=== PATIENT | male | born 1960 | race African-American/Black ===

== ENCOUNTER 2020-02-23 17:05 | Inpatient (IN) | payer MEDICARE, MEDICAID ==
[~2020-02-23] VITALS: Ht 180.3 cm; Wt 110.7 kg
[~2020-02-23 17:05] MED LIST: AMLODIPINE BESY10 MG ORAL; ATRIPLA TABLET1 EAC1 ORAL; BENAZEPRIL HCL40 MG ORAL; KEFLEX500 MG ORAL; METOPROLOL TAR100 M1 ORAL; PROMETH-CODEIN 65 ML PO; TRAZODONE HCL150 MG ORAL; TRIAMTERENE-HC1 EAC6 ORAL; WELLBUTRIN XL150 MG ORAL
[2020-02-23 17:20] VITALS: BP 129/79
--- NOTE | 2020-02-23 17:20 | NUR ---
ED Nurse Note: Patient walked into ER due to SOB x 5 days and swelling in BLE, more on the right leg. Increased SOB with walking. Pt also c/o chest tightness. AAO x4, verbally responsive. Afebrile. Covid isolation precaution observed. ERMD at bedside. Addendum: 02/23/20 at 1803 by JOSSIE ED Nurse Note: Pt reports unable to bear weight on right leg.
--- NOTE | 2020-02-23 17:25 | NUR ---
ED Nurse Note: IV line established. Blood specimen collected and sent to lab.
--- NOTE | 2020-02-23 17:53 | Emergency Room Report ---
History of Present Illness General Chief Complaint: Chest Pain Source: Patient, Medical Record Present Illness HPI 59-year-old male history of asthma history of hypertension, HIV presents with cough, shortness of breath x4 days, dyspnea on exertion, some chest tightness aggravated with exertion relieved with rest severity is moderate, intermittent patient denies any nausea vomiting, abdominal pain patient presents for evaluation Allergies: Coded Allergies: No Known Allergies (Unverified , 10/10/16) COVID-19 Screening Contact w/high risk pt: No Recent Travel to affected area: No Experienced COVID-19 symptoms?: Yes COVID-19 symptoms experienced: Shortness of Breath Patient History Past Medical History: see triage record Reviewed Nursing Documentation: PMH: Agreed; PSxH: Agreed Nursing Documentation-PMH Past Medical History: No History, Except For Hx Cardiac Problems: No - HIV Hx Hypertension: Yes Hx Gastrointestinal Problems: Yes - diverticulitis, diverticulosis Review of Systems All Other Systems: negative except mentioned in HPI Physical Exam Vital Signs Date Time Temp Pulse Resp B/P (MAP) Pulse Ox O2 Delivery O2 Flow Rate FiO2 02/23/20 17:17 73 16 129/79 (96) 95 Room Air Sp02 EP Interpretation: reviewed, normal General Appearance: well appearing, no apparent distress, alert Head: normocephalic, atraumatic Eyes: bilateral eye PERRL, bilateral eye EOMI ENT: uvula midline, moist mucus membranes Neck: supple, thyroid normal, supple/symm/no masses Respiratory: lungs clear, no respiratory distress, no retraction, no accessory muscle use Cardiovascular #1: normal peripheral pulses, regular rate, rhythm, no edema, no gallop, no murmur Gastrointestinal: non tender, soft, no guarding, no rebound Musculoskeletal: normal inspection Neurologic: alert, oriented x3 Psychiatric: mood/affect normal Skin: no rash, warm/dry Medical Decision Making Diagnostic Impression: Primary Impression: Chest pain Qualified Codes: R07.9 - Chest pain, unspecified Additional Impressions: LEE (acute kidney injury) Hypokalemia Ankle sprain Qualified Codes: S93.491A - Sprain of other ligament of right ankle, initial encounter ER Course 59-year-old male presents with shortness of breath, differential diagnosis includes electrolyte abnormality, COVID, ACS Patient with incidental LEE, hyperkalemia We will start patient on potassium, patient will be admitted for management of his LEE Patient to be admitted to Dr. Zeyad Holt Laboratory Tests Test 02/23/20 17:35 White Blood Count 11.3 K/UL (4.8-10.8) H Red Blood Count 5.37 M/UL (4.70-6.10) Hemoglobin 14.2 G/DL (14.2-18.0) Hematocrit 44.7 % (42.0-52.0) Mean Corpuscular Volume 83 FL (80-99) Mean Corpuscular Hemoglobin 26.4 PG (27.0-31.0) L Mean Corpuscular Hemoglobin Concent 31.7 G/DL (32.0-36.0) L Red Cell Distribution Width 14.3 % (11.6-14.8) Platelet Count 197 K/UL (150-450) Mean Platelet Volume 7.2 FL (6.5-10.1) Neutrophils (%) (Auto) 69.3 % (45.0-75.0) Lymphocytes (%) (Auto) 17.3 % (20.0-45.0) L Monocytes (%) (Auto) 8.6 % (1.0-10.0) Eosinophils (%) (Auto) 3.5 % (0.0-3.0) H Basophils (%) (Auto) 1.3 % (0.0-2.0) Sodium Level 143 MMOL/L (136-145) Potassium Level 2.6 MMOL/L (3.5-5.1) *L Chloride Level 100 MMOL/L (98-107) Carbon Dioxide Level 32 MMOL/L (21-32) Anion Gap 11 mmol/L (5-15) Blood Urea Nitrogen 20 mg/dL (7-18) H Creatinine 2.3 MG/DL (0.55-1.30) H Estimated Glomerular Filtration Rate 35.3 mL/min (>60) Glucose Level 122 MG/DL (74-106) H Calcium Level 9.0 MG/DL (8.5-10.1) Total Bilirubin 0.5 MG/DL (0.2-1.0) Aspartate Amino Transferase (AST) 16 U/L (15-37) Alanine Aminotransferase (ALT) 16 U/L (12-78) Alkaline Phosphatase 102 U/L (46-116) Troponin I 0.030 ng/mL (0.000-0.056) Pro-B-Type Natriuretic Peptide 475 pg/mL (0-125) H Total Protein 7.8 G/DL (6.4-8.2) Albumin 3.6 G/DL (3.4-5.0) Globulin 4.2 g/dL Albumin/Globulin Ratio 0.9 (1.0-2.7) L EKG Diagnostic Results EKG Time: 17:27 EP Interpretation: NSR, right bundle branch block, rate 73, QTc 475, no acute ST elevations, Chest X-Ray Diagnostic Results Chest X-Ray Diagnostic Results : Chest X-Ray Ordered: Yes # of Views/Limited/Complete: 1 View Indication: Shortness of Breath EP Interpretation: Yes Interpretation: no consolidation, no effusion, no pneumothorax, no acute cardiopulmonary disease Impression: No acute disease Electronically Signed by: Christian Roque MD Last Vital Signs Date Time Temp Pulse Resp B/P (MAP) Pulse Ox O2 Delivery O2 Flow Rate FiO2 02/23/20 17:17 73 16 129/79 (96) 95 Room Air Disposition: ADMITTED INPATIENT Condition: Stable Referrals: NOT CHOSEN IPA/,REFERRING (PCP) Christian Roque MD February 23, 2020 17:53
--- NOTE | 2020-02-23 18:01 | NUR ---
ED Nurse Note: Xray at bedside.
[2020-02-23 18:11] LABS: BASOPHILS % (AUTO) 1.3 % (0.0-2.0); EOSINOPHILS % (AUTO) 3.5 % (0.0-3.0); HEMATOCRIT 44.7 % (42.0-52.0); HEMOGLOBIN 14.2 G/DL (14.2-18.0); LYMPHOCYTES % (AUTO) 17.3 % (20.0-45.0); MEAN CORPUSCULAR VOLUME 83 FL (80-99); MONOCYTES % (AUTO) 8.6 % (1.0-10.0); NEUTROPHILS % (AUTO) 69.3 % (45.0-75.0); PLATELET COUNT 197 K/UL (150-450); RED BLOOD COUNT 5.37 M/UL (4.70-6.10); RED CELL DISTRIBUTION WIDTH 14.3 % (11.6-14.8); WHITE BLOOD COUNT 11.3 K/UL (4.8-10.8)
[2020-02-23 18:35] LABS: ALANINE AMINOTRANSFERASE 16 U/L (12-78); ALBUMIN 3.6 G/DL (3.4-5.0); ALBUMIN/GLOBULIN RATIO 0.9 (1.0-2.7); ALKALINE PHOSPHATASE 102 U/L (46-116); ANION GAP 11 mmol/L (5-15); ASPARTATE AMINO TRANSFERASE 16 U/L (15-37); BILIRUBIN,TOTAL 0.5 MG/DL (0.2-1.0); BLOOD UREA NITROGEN 20 mg/dL (7-18); CARBON DIOXIDE 32 MMOL/L (21-32); CHLORIDE 100 MMOL/L (98-107); CREATININE 2.3 MG/DL (0.55-1.30); SODIUM 143 MMOL/L (136-145)
[2020-02-23 18:37] LABS: POTASSIUM 2.6 MMOL/L (3.5-5.1)
--- NOTE | 2020-02-23 19:05 | NUR ---
ED Nurse Note: Received report from PILI Rosado. Patient reassesed, resting in bed, no acute distress noted.
--- NOTE | 2020-02-23 19:05 | NUR ---
HAND-OFF: Report given to Tahmina ALEJANDRE.
--- NOTE | 2020-02-23 19:10 | Diagnostic Imaging Report ---
EXAM: XR Right Ankle Complete, 3 or More Views CLINICAL HISTORY: PAIN TECHNIQUE: Frontal, lateral and oblique views of the right ankle. COMPARISON: None FINDINGS: Bones/joints: No displaced fracture or dislocation identified. Ankle mortise is intact. Osteopenia. Small posterior calcaneal spur. Soft tissues: Soft tissue swelling. Phleboliths in the soft tissues. IMPRESSION: No displaced fracture or dislocation identified.
[2020-02-23] MEDS ORDERED: DIAZEPAM10 MG ORAL (19:11)
[2020-02-23] MEDS ORDERED: WELLBUTRIN XL150 MG ORAL (19:11)
--- NOTE | 2020-02-23 20:40 | NUR ---
ED Nurse Note: Report given to PILI Michaels.
--- NOTE | 2020-02-23 20:47 | NUR ---
TRANSFER TO FLOOR: Patient transferred to telemetry as ordered, per ERMD. Report given to PILI Michaels. 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
[2020-02-23 21:21] VITALS: BP 136/84
--- NOTE | 2020-02-23 21:32 | NUR ---
NURSE NOTES: Called and left a message with Dr. Holt regarding admission orders. Awaiting call back.
[2020-02-23] MEDS: HYDROcodone/Acetamin 5/325 tab ORAL PRN (23:09)
[2020-02-24] VITALS: BP 140/79
[2020-02-24 04:00] VITALS: BP 142/73
--- NOTE | 2020-02-24 07:00 | NUR ---
NURSE NOTES:Handoff received from PILI Michaels. Patient received awake and alert and able to make needs known, No acute signs of distress noted. Patient requested commode, which is at bedside. Patient has Iv access clean dry and intact saline locked. Patient is on room air. Bed in the low and locked position with call light within reach, will continue to monitor patient.
--- NOTE | 2020-02-24 07:29 | NUR ---
HAND-OFF: Report given to PILI Bishop. Pt stable.
[2020-02-24 08:00] VITALS: BP 134/87
[2020-02-24] MEDS ORDERED: Triamterene/Hctz 37.5/25 cap ORAL SCH (09:00)
[2020-02-24] MEDS: Docusate 100mg cap ORAL SCH ×2 (09:00→17:54)
[2020-02-24 09:12] LABS: BASOPHILS % (AUTO) 0.8 % (0.0-2.0); EOSINOPHILS % (AUTO) 4.4 % (0.0-3.0); HEMATOCRIT 37.9 % (42.0-52.0); HEMOGLOBIN 12.9 G/DL (14.2-18.0); MEAN CORPUSCULAR VOLUME 78 FL (80-99); MONOCYTES % (AUTO) 6.9 % (1.0-10.0); PLATELET COUNT 170 K/UL (150-450); RED BLOOD COUNT 4.83 M/UL (4.70-6.10); RED CELL DISTRIBUTION WIDTH 12.5 % (11.6-14.8); WHITE BLOOD COUNT 7.9 K/UL (4.8-10.8)
[2020-02-24 09:27] LABS: ALANINE AMINOTRANSFERASE 17 U/L (12-78); ALBUMIN/GLOBULIN RATIO 0.9 (1.0-2.7); ALKALINE PHOSPHATASE 88 U/L (46-116); ANION GAP 9 mmol/L (5-15); ASPARTATE AMINO TRANSFERASE 13 U/L (15-37); BILIRUBIN,TOTAL 0.5 MG/DL (0.2-1.0); BLOOD UREA NITROGEN 20 mg/dL (7-18); CALCIUM 8.3 MG/DL (8.5-10.1); CARBON DIOXIDE 31 MMOL/L (21-32); CHLORIDE 102 MMOL/L (98-107); CREATININE 2.3 MG/DL (0.55-1.30); PHOSPHORUS 2.8 MG/DL (2.5-4.9); SODIUM 142 MMOL/L (136-145)
[2020-02-24 09:28] LABS: POTASSIUM 2.6 MMOL/L (3.5-5.1)
[2020-02-24] MEDS: BuPROPion XL 150mg tab ORAL SCH (09:32)
[2020-02-24] MEDS: HYDROcodone/Acetamin 5/325 tab ORAL PRN ×2 (09:34→21:42)
[2020-02-24 12:00] VITALS: BP 138/80
[2020-02-24 12:02] LABS: APPEARANCE,URINE CLEAR; BILIRUBIN, URINE NEGATIVE (NEGATIVE); COLOR,URINE PALE YELLOW; GLUCOSE, URINE (UA) NEGATIVE (NEGATIVE); KETONES,URINE NEGATIVE (NEGATIVE); LEUKOCYTE ESTERASE ,URINE 1+ (NEGATIVE); NITRITE,URINE NEGATIVE (NEGATIVE); PH,URINE 6.5 (4.5-8.0); PROTEIN,URINE 2+ (NEGATIVE); UROBILINOGEN,URINE NORMAL MG/DL (0.0-1.0)
--- NOTE | 2020-02-24 12:32 | Consultation ---
Consult Note Consult Note I was asked to evaluate the patient at the request of Dr. Zeyad Holt for renal failure Patient seen in room 207. Patient's nurse "Aime" is in the room. Patient states that has history of kidney disease. Emergency room note: Chief Complaint: Chest Pain 59-year-old male history of asthma history of hypertension, HIV presents with cough, shortness of breath x4 days, dyspnea on exertion, some chest tightness aggravated with exertion relieved with rest severity is moderate , intermittent patient denies any nausea vomiting, abdominal pain patient presents for evaluation No Known Allergies (Unverified , 10/10/16) COVID-19 Screening Contact w/high risk pt: No Recent Travel to affected area: No Experienced COVID-19 symptoms?: Yes COVID-19 symptoms experienced: Shortness of Breath Past Medical History: No History, Except For Hx Cardiac Problems: No - HIV Hx Hypertension: Yes Hx Gastrointestinal Problems: Yes - diverticulitis, diverticulosis Patient interviewed Data reviewed Examined Assessment/Plan Renal failure appears to be chronic, may have superimposed acute component Hypo-kalemia History of hypertension History of HIV disease History of diverticulitis Proteinuria with 1+ leukocyte Estrace Stop Dyazide, stop Lotensin Potassium supplement p.o. and IV Adjust blood pressure medication Avoid nephrotoxic's Urine studies Kidney ultrasound Monitor renal parameters Per orders Tawanda Holbrook MD February 24, 2020 12:32
[2020-02-24] MEDS ORDERED: HydrALAZINE 25mg tab ORAL PRN (12:45)
--- NOTE | 2020-02-24 12:55 | Cardiac Electrophysiology PN ---
Subjective Subjective [id number] Objective Last 24 Hour Vital Signs Date Time Temp Pulse Resp B/P (MAP) Pulse Ox O2 Delivery O2 Flow Rate FiO2 02/24/20 12:00 97.5 73 20 138/80 (99) 93 02/24/20 09:00 Nasal Cannula 2.0 02/24/20 08:00 72 02/24/20 08:00 97.2 72 20 134/87 (103) 95 02/24/20 04:32 70 02/24/20 04:00 97.6 74 18 142/73 (96) 95 02/24/20 00:00 97.9 73 19 140/79 (99) 94 02/24/20 00:00 76 02/23/20 23:28 Room Air 02/23/20 21:26 69 02/23/20 21:21 98.0 73 136/84 (101) 97 02/23/20 20:47 99.0 70 18 125/82 96 Room Air 02/23/20 17:20 73 16 Room Air 02/23/20 17:20 99.1 73 16 129/79 95 Room Air 02/23/20 17:17 73 16 129/79 (96) 95 Room Air Intake and Output 02/23/20 02/24/20 19:00 07:00 Intake Total 0 ml Balance 0 ml Intake Oral 0 ml Laboratory Tests Test 02/23/20 17:35 02/24/20 01:35 02/24/20 08:55 02/24/20 11:40 White Blood Count 11.3 K/UL (4.8-10.8) H 7.9 K/UL (4.8-10.8) Red Blood Count 5.37 M/UL (4.70-6.10) 4.83 M/UL (4.70-6.10) Hemoglobin 14.2 G/DL (14.2-18.0) 12.9 G/DL (14.2-18.0) L Hematocrit 44.7 % (42.0-52.0) 37.9 % (42.0-52.0) L Mean Corpuscular Volume 83 FL (80-99) 78 FL (80-99) L Mean Corpuscular Hemoglobin 26.4 PG (27.0-31.0) L 26.7 PG (27.0-31.0) L Mean Corpuscular Hemoglobin Concent 31.7 G/DL (32.0-36.0) L 34.0 G/DL (32.0-36.0) Red Cell Distribution Width 14.3 % (11.6-14.8) 12.5 % (11.6-14.8) Platelet Count 197 K/UL (150-450) 170 K/UL (150-450) Mean Platelet Volume 7.2 FL (6.5-10.1) 5.8 FL (6.5-10.1) L Neutrophils (%) (Auto) 69.3 % (45.0-75.0) 67.0 % (45.0-75.0) Lymphocytes (%) (Auto) 17.3 % (20.0-45.0) L 21.0 % (20.0-45.0) Monocytes (%) (Auto) 8.6 % (1.0-10.0) 6.9 % (1.0-10.0) Eosinophils (%) (Auto) 3.5 % (0.0-3.0) H 4.4 % (0.0-3.0) H Basophils (%) (Auto) 1.3 % (0.0-2.0) 0.8 % (0.0-2.0) Sodium Level 143 MMOL/L (136-145) 142 MMOL/L (136-145) Potassium Level 2.6 MMOL/L (3.5-5.1) *L 2.6 MMOL/L (3.5-5.1) *L Chloride Level 100 MMOL/L (98-107) 102 MMOL/L (98-107) Carbon Dioxide Level 32 MMOL/L (21-32) 31 MMOL/L (21-32) Anion Gap 11 mmol/L (5-15) 9 mmol/L (5-15) Blood Urea Nitrogen 20 mg/dL (7-18) H 20 mg/dL (7-18) H Creatinine 2.3 MG/DL (0.55-1.30) H 2.3 MG/DL (0.55-1.30) H Estimat Glomerular Filtration Rate 35.3 mL/min (>60) 35.3 mL/min (>60) Glucose Level 122 MG/DL (74-106) H 220 MG/DL (74-106) H Calcium Level 9.0 MG/DL (8.5-10.1) 8.3 MG/DL (8.5-10.1) L Total Bilirubin 0.5 MG/DL (0.2-1.0) 0.5 MG/DL (0.2-1.0) Aspartate Amino Transf (AST/SGOT) 16 U/L (15-37) 13 U/L (15-37) L Alanine Aminotransferase (ALT/SGPT) 16 U/L (12-78) 17 U/L (12-78) Alkaline Phosphatase 102 U/L (46-116) 88 U/L (46-116) Troponin I 0.030 ng/mL (0.000-0.056) 0.031 ng/mL (0.000-0.056) 0.038 ng/mL (0.000-0.056) Pro-B-Type Natriuretic Peptide 475 pg/mL (0-125) H Total Protein 7.8 G/DL (6.4-8.2) 6.4 G/DL (6.4-8.2) Albumin 3.6 G/DL (3.4-5.0) 3.0 G/DL (3.4-5.0) L Globulin 4.2 g/dL 3.4 g/dL Albumin/Globulin Ratio 0.9 (1.0-2.7) L 0.9 (1.0-2.7) L Phosphorus Level 2.8 MG/DL (2.5-4.9) Magnesium Level 2.2 MG/DL (1.8-2.4) Urine Color Pale yellow Urine Appearance Clear Urine pH 6.5 (4.5-8.0) Urine Specific [place] 1.010 (1.005-1.035) Urine Protein 2+ (NEGATIVE) H Urine Glucose (UA) Negative (NEGATIVE) Urine Ketones Negative (NEGATIVE) Urine Blood 2+ (NEGATIVE) H Urine Nitrite Negative (NEGATIVE) Urine Bilirubin Negative (NEGATIVE) Urine Urobilinogen Normal MG/DL (0.0-1.0) Urine Leukocyte Esterase 1+ (NEGATIVE) H Urine RBC 2-4 /HPF (0 - 0) H Urine WBC 2-4 /HPF (0 - 0) Urine Squamous Epithelial Cells Occasional /LPF Urine Bacteria Occasional /HPF (NONE) Urine Random Sodium 62 mmol/L (20-110) Thony Augustine MD February 24, 2020 12:55
--- NOTE | 2020-02-24 13:30 | NUR ---
PT NOTES MD order received for PT eval and treatment. Chart reviewed. Attempted to see patient for PT evaluation however patient having an US procedure. Will follow-up with patient tomorrow.
--- NOTE | 2020-02-24 13:53 | NUR ---
CASE MANAGEMENT:REVIEW 59 YR OLD MALE WALKED IN TO OUR ER CC: CHEST PAIN AND SOB. BLE SWELLING SI: CHEST PAIN. LEE. HYPOKALEMIA 99.1 73 16 129/79 95% ON RA WBC+11.3 K-2.6 BUN+20 CR+2.3 IS: ASA PO K-DUR PO 1L NS BOLUS XRAY RT ANKLE CHEST XRAY COVID 19 SWAB : TO TELEMETRY DCP: FROM HOME PLAN: CONTINUOUS CARDIAC MONITORING ISOLATION PENDING COVID RESULTS
[2020-02-24 17:00] VITALS: BP 132/76
--- NOTE | 2020-02-24 18:15 | History and Physical Report ---
DATE OF ADMISSION: 02/23/2020 DATE AND TIME SEEN: 02/24/2020 at 9 a.m. CONSULTANTS: 1. Walter Lobato MD. 2. Carlton Victoria MD. 3. Tawanda Holbrook MD. CHIEF COMPLAINT: Chest pain, shortness of breath, rule out COVID, right ankle pain, LEE, hypokalemia. BRIEF HISTORY: This is a 59-year-old male, who lives at home presented to [facility] last night with the above-mentioned diagnoses, admitted to telemetry for further care. Currently, calm, sleeping in bed, not talking much. REVIEW OF SYSTEMS: Unavailable. PAST MEDICAL HISTORY: Includes LEE. PAST SURGICAL HISTORY: Unknown. MEDICATIONS: Include amlodipine, bupropion, triamterene, potassium, hydrocodone. ALLERGIES: Denies. SOCIAL HISTORY: Unable to obtain secondary to patient's condition. PHYSICAL EXAMINATION: GENERAL: Lethargic, sleepy in bed. VITAL SIGNS: Temperature 97, pulse 74, respirations 18, blood pressure 142/73. HEENT: Normocephalic, atraumatic. NECK: Trachea midline. CARDIOVASCULAR: No peripheral edema. PULMONARY: Breathing comfortably on room air. ABDOMEN: No apparent wound. EXTREMITIES: Show no cyanosis or clubbing. LABORATORY AND DIAGNOSTIC DATA: Labs at this time show white count 11.3, otherwise CBC is normal. BMP shows initially potassium 2.6, BUN/creatinine 20/2.3, glucose 122. Troponin 0.3, 0.31. BNP is 475. ASSESSMENT: 1. Chest pain. 2. Shortness of breath. 3. Rule out COVID. 4. Right ankle pain. 5. LEE. 6. Hypokalemia. 7. Hypertension. PLAN: 1. Blood pressure, pain control. 2. Dietary followup. 3. Hematology followup. 4. We will add Cardiology. 5. PT, dietary evaluation. 6. CBC, BMP in the morning. Zeyad Holt D.O. DR: YING JOB#: [id number] CC:
--- NOTE | 2020-02-24 19:15 | Consultation ---
DATE OF CONSULTATION: 02/24/2020 PULMONARY CONSULTATION CONSULTING PHYSICIAN: Carlton Victoria MD. REFERRING PHYSICIAN: Zeyad Holt DO. REASON FOR CONSULT: Asthma. HISTORY OF PRESENT ILLNESS: This is a 59-year-old male with history of asthma, hypertension, HIV who came to the hospital with cough, shortness of breath. He also reports dyspnea on exertion. He also reports chest discomfort. Patient was admitted to the hospital with a concern about pulmonary infection. PAST HISTORY: HIV positivity, hypertension, bronchial asthma, diverticulosis. HOME MEDICATIONS: Reviewed and reconciled in chart. ALLERGIES: None reported. REVIEW OF SYSTEMS: Denies any headaches, hematemesis, melena, hematochezia, night sweats, or weight loss. PHYSICAL EXAMINATION: GENERAL: Reveals a 59-year-old male. HEENT: Unremarkable. LUNGS: Clear breath sounds bilaterally. ABDOMEN: Soft. NEUROLOGIC: Nonfocal. VITAL SIGNS: Blood pressure is 130/80, heart rate 74, respirations 18, O2 saturation 98% on 2 L of oxygen. IMAGING: Imaging studies of the ankle show no evidence of fracture. X-ray chest was also obtained, which shows clear lung walsh bilaterally. IMPRESSION: 1. Asthma, stable. 2. Status post fall. 3. HIV positivity. 4. Hypertension. DISCUSSION: Agree with admission and care. Patient needs evaluation for chest pain. He is mildly hypokalemic, needs replacement. He has been found to have mild renal insufficiency as well as significant hypokalemia. Needs Nephrology evaluation. We will agree with continuation of medications, replacement of potassium. Consider fluid hydration. We will follow. Carlton Victoria M.D. DR: LUCIANA JOB#: [id number] CC:
--- NOTE | 2020-02-24 19:35 | NUR ---
NURSE NOTES: RECEIVED REPORT FROM PILI ALY. PATIENT AWAKE IN BED, AOX4, VERBALLY RESPONSIVE AND ABLE TO MAKE NEEDS KNOWN. NO COMPLAINTS OF PAIN OR DISCOMFORT AT THIS TIME. BREATHING IS EVEN AND UNLABORED ON 2L NC, NO S/SX OF DISTRESS NOTED AT THIS TIME. SCDS OFF, PATIENT REFUSED TO WEAR THEM AT THIS TIME. IV SITE ON MARIAH ASYMPTOMATIC, PATENT AND INTACT, SALINE-LOCKED. CONTACT AND DROPLET PRECAUTIONS IMPLEMENTED. BED LOCKED AND IN LOWEST POSITION. CALL LIGHT, URINAL WITHIN REACH. WILL CONTINUE TO MONITOR FOR ANY CHANGES.
--- NOTE | 2020-02-24 19:58 | NUR ---
HAND-OFF: Report given to PILI Delgado.
[2020-02-24 20:00] VITALS: BP 135/85
[2020-02-24] MEDS: TraZODone 50mg tab ORAL SCH (21:34)
--- NOTE | 2020-02-24 22:30 | Consultation ---
DATE OF CONSULTATION: 02/24/2020 CARDIOLOGY CONSULTATION CONSULTING PHYSICIAN: Thony Augustine MD. REFERRING PHYSICIAN: Zeyad Holt DO. REASON FOR CONSULTATION: Shortness of breath and chest pain. HISTORY OF PRESENT ILLNESS: Patient is a 59-year-old gentleman with history of hypertension, HIV, and asthma who presented to the emergency room complaining of cough and shortness of breath for 4 days as well as indigestion and chest pain. Patient's chest pain was exacerbated with exertion and relieved with rest. It was intermittent. Patient was admitted to be ruled out for COVID and a Cardiology consultation was obtained for further evaluation. REVIEW OF SYSTEMS: Negative other than what is mentioned in the history of present illness. PAST MEDICAL HISTORY: As mentioned above. FAMILY HISTORY: Noncontributory. PHYSICAL EXAMINATION: VITAL SIGNS: Show blood pressure of 138/80, pulse 73, respirations 18, temperature 97.5. HEAD AND NECK: Shows no JVD. LUNGS: Clear. CARDIOVASCULAR: Shows regular S1 and S2 with no gallop. ABDOMEN: Soft, obese. EXTREMITIES: No pitting edema. LABORATORY AND DIAGNOSTIC DATA: Labs show white count of 7.9, hemoglobin of 13, hematocrit of 38, and platelet count of 170,000. Sodium is 142, potassium is 2.6, BUN of 20, creatinine 2.3, and glucose of 220. Troponin negative x3. ASSESSMENT AND PLAN: 1. Chest pain. Patient was ruled out for myocardial infarction with serial cardiac enzymes. The EKG no acute ischemic changes. We will repeat the EKG and get an echocardiogram for further evaluation. 2. Profound hypokalemia with potassium 2.3. Potassium has been replaced by Dr. Holbrook. 3. Hypertension. Continue amlodipine 10 mg daily and hydralazine p.r.n. 4. Shortness of breath. Patient will be ruled out for COVID. Currently off antibiotic. 5. HIV. 6. History of diverticulitis. Thank you very much for allowing me to participate in the care of this patient. Please do not hesitate to contact me for any questions regarding my evaluation. Thony Augustine M.D. DR: DIONE JOB#: [id number] CC:
[2020-02-25] VITALS: BP 138/86
[2020-02-25 04:00] VITALS: BP 102/60
--- NOTE | 2020-02-25 06:32 | NUR ---
NURSE NOTES: UNABLE TO DRAW LABS X 2, INSUFFICIENT AMOUNT OF BLOOD. INFORMED LEXIE FROM LAB.
[2020-02-25 07:24] LABS: BASOPHILS % (AUTO) 0.7 % (0.0-2.0); HEMATOCRIT 38.1 % (42.0-52.0); HEMOGLOBIN 12.8 G/DL (14.2-18.0); LYMPHOCYTES % (AUTO) 25.2 % (20.0-45.0); MEAN CORPUSCULAR VOLUME 79 FL (80-99); MONOCYTES % (AUTO) 7.7 % (1.0-10.0); NEUTROPHILS % (AUTO) 61.4 % (45.0-75.0); PLATELET COUNT 166 K/UL (150-450); RED BLOOD COUNT 4.83 M/UL (4.70-6.10); RED CELL DISTRIBUTION WIDTH 12.3 % (11.6-14.8); WHITE BLOOD COUNT 7.7 K/UL (4.8-10.8)
--- NOTE | 2020-02-25 07:30 | NUR ---
HAND-OFF: Report given to PILI SCHROEDER. PLAN OF CARE ENDORSED.
--- NOTE | 2020-02-25 07:30 | NUR ---
NURSE NOTES: Received report from PILI Delgado. Pt is awake and alert. pt has NC 2LMP. pt has intact iv access MARIAH 20G SL. Pt is on continues heart monitoring. no complain of pain at this moment. Dr charles is aware about K 2.8, he will F/U. all needs attended, bed is locked and is in the lowest position. call light within easy reach. will continue to monitor.
[2020-02-25 08:00] VITALS: BP 127/80
[2020-02-25 08:05] LABS: ALANINE AMINOTRANSFERASE 17 U/L (12-78); ALBUMIN/GLOBULIN RATIO 0.8 (1.0-2.7); ALKALINE PHOSPHATASE 78 U/L (46-116); ANION GAP 8 mmol/L (5-15); ASPARTATE AMINO TRANSFERASE 13 U/L (15-37); BILIRUBIN,TOTAL 0.4 MG/DL (0.2-1.0); BLOOD UREA NITROGEN 21 mg/dL (7-18); CALCIUM 8.5 MG/DL (8.5-10.1); CARBON DIOXIDE 30 MMOL/L (21-32); CHLORIDE 106 MMOL/L (98-107); CHOLESTEROL 89 MG/DL (< 200); CREATINE KINASE 113 U/L (26-308); CREATININE 2.2 MG/DL (0.55-1.30); FERRITIN 51 NG/ML (8-388); GAMMA GLUTAMYL TRANSPEPTIDASE 28 U/L (5-85); HDL CHOLESTEROL 27 MG/DL (40-60); LACTATE DEHYDROGENASE 167 U/L (81-234); PHOSPHORUS 4.1 MG/DL (2.5-4.9); POTASSIUM 2.8 MMOL/L (3.5-5.1); SODIUM 144 MMOL/L (136-145); TRIGLYCERIDES 110 MG/DL (30-150)
[2020-02-25 08:13] LABS: % IRON SATURATION 12 % (15-50); IRON 35 ug/dL (50-175); TOTAL IRON BINDING CAPACITY 294 ug/dL (250-450)
[2020-02-25] MEDS ORDERED: Sodium Chloride for KCL Premix X 3hrs IV SCH (10:00)
--- NOTE | 2020-02-25 10:00 | NUR ---
PT NOTES MD order received for PT evaluation and treatment. PT evaluation completed, patient will benefit from skilled PT to work on strengthening of B LE and balance for stability with gait. Patient is cleared for OOB with nursing supervison. To see patient QD 5x/wk x 2 weeks or until discharge. Patient was driving, independent with all ADL's and living alone at home prior to admission. Most likely will discharge home when cleared by Pavel. Thank you for this referral.
[2020-02-25] MEDS: Docusate 100mg cap ORAL SCH ×3 (10:07→17:48)
[2020-02-25] MEDS: BuPROPion XL 150mg tab ORAL SCH (10:09)
--- NOTE | 2020-02-25 10:19 | Pulmonology Progress Note ---
Subjective Interval Events: None new Constitutional: Reports: no symptoms HEENT: Repors: no symptoms Respiratory: Reports: no symptoms Cardiovascular: Reports: no symptoms Gastrointestinal/Abdominal: Reports: no symptoms Allergies: Coded Allergies: No Known Allergies (Unverified , 10/10/16) Objective Last 24 Hour Vital Signs Date Time Temp Pulse Resp B/P (MAP) Pulse Ox O2 Delivery O2 Flow Rate FiO2 02/25/20 10:10 77 127/80 02/25/20 08:00 97.7 77 20 127/80 (96) 98 02/25/20 04:00 97.7 63 18 102/60 (74) 95 02/25/20 04:00 76 02/25/20 00:00 84 02/25/20 00:00 98.2 74 19 138/86 (103) 97 02/24/20 21:00 Nasal Cannula 2.0 02/24/20 20:00 98.0 76 18 135/85 (102) 98 02/24/20 20:00 76 02/24/20 17:00 80 02/24/20 17:00 97.3 73 20 132/76 (94) 91 02/24/20 13:30 76 138/80 02/24/20 12:00 97.5 73 20 138/80 (99) 93 02/24/20 12:00 76 Intake and Output 02/24/20 02/25/20 19:00 07:00 Intake Total 720 ml Output Total 800 ml Balance -80 ml Intake Oral 720 ml Output Urine Total 800 ml # Bowel Movements 1 1 General Appearance: no acute distress HEENT: normocephalic Respiratory/Chest: chest wall non-tender Cardiovascular: normal peripheral pulses Abdomen: normal bowel sounds Microbiology Date/Time Source Procedure Growth Status 02/23/20 17:39 Nasopharynx Coronavirus COVID-19 PCR ([facility]) - Final Complete Laboratory Tests 02/24/20 11:40: Urine Color Pale yellow, Urine Appearance Clear, Urine pH 6.5, Urine Specific [place] 1.010, Urine Protein 2+H, Urine Glucose (UA) Negative, Urine Ketones Negative, Urine Blood 2+H, Urine Nitrite Negative, Urine Bilirubin Negative, Urine Urobilinogen Normal, Urine Leukocyte Esterase 1+H, Urine RBC 2-4H, Urine WBC 2-4, Urine Squamous Epithelial Cells Occasional, Urine Bacteria Occasional, Urine Random Sodium 62 02/24/20 17:20: Troponin I 0.027 02/25/20 04:15: Urine Eosinophils None seen 02/25/20 06:13: Troponin I 0.033, White Blood Count 7.7, Red Blood Count 4.83, Hemoglobin 12.8L , Hematocrit 38.1L, Mean Corpuscular Volume 79L, Mean Corpuscular Hemoglobin 26.6L, Mean Corpuscular Hemoglobin Concent 33.7, Red Cell Distribution Width 12.3, Platelet Count 166, Mean Platelet Volume 5.8L, Neutrophils (%) (Auto) 61.4 , Lymphocytes (%) (Auto) 25.2, Monocytes (%) (Auto) 7.7, Eosinophils (%) (Auto) 5.0H, Basophils (%) (Auto) 0.7, Sodium Level 144, Potassium Level 2.8L, Chloride Level 106, Carbon Dioxide Level 30, Anion Gap 8, Blood Urea Nitrogen 21H, Creatinine 2.2H, Estimat Glomerular Filtration Rate 37.1, Glucose Level 113 #H, Hemoglobin A1c 6.7H, Uric Acid 7.0, Calcium Level 8.5, Phosphorus Level 4.1 , Magnesium Level 2.2, Iron Level 35L, Total Iron Binding Capacity 294, Percent Iron Saturation 12L, Unsaturated Iron Binding 259, Ferritin 51, Total Bilirubin 0.4, Gamma Glutamyl Transpeptidase 28, Aspartate Amino Transf (AST/SGOT) 13L, Alanine Aminotransferase (ALT/SGPT) 17, Alkaline Phosphatase 78, Lactate Dehydrogenase 167, Total Creatine Kinase 113, C-Reactive Protein, Quantitative 5.4H, Pro-B-Type Natriuretic Peptide 258H, Total Protein 6.7, Albumin 3.0L, Globulin 3.7, Albumin/Globulin Ratio 0.8L, Triglycerides Level 110, Cholesterol Level 89, LDL Cholesterol 45, HDL Cholesterol 27L, Cholesterol/HDL Ratio 3.3, Vitamin B12 Level 206, Folate 7.2L, Thyroid Stimulating Hormone (TSH) 2.318 Current Medications Medications (Trade) Dose Ordered Sig/Mamie Route PRN Reason Start Time Stop Time Status Last Admin Dose Admin Acetaminophen/ Hydrocodone Bitart ([place] 5/325) 1 tab Q6H PRN ORAL For Pain 02/23/20 22:00 03/01/20 21:59 02/24/20 21:42 Amlodipine Besylate (Norvasc) 10 mg DAILY ORAL 02/25/20 09:00 03/26/20 08:59 02/25/20 10:10 Bupropion HCl (Wellbutrin XL) 150 mg DAILY ORAL 02/24/20 09:00 03/25/20 08:59 02/25/20 10:09 Docusate Sodium (Colace) 100 mg TWICE A DAY ORAL 02/24/20 09:00 03/25/20 08:59 02/25/20 10:07 Hydralazine HCl (Apresoline) 25 mg Q4H PRN ORAL Blood pressure over 160 systol 02/24/20 12:45 05/24/20 12:44 Potassium Chloride 100 ml @ 100 mls/hr Q1HR IVPB 02/25/20 10:00 02/25/20 12:59 02/25/20 10:08 Potassium Chloride (K-Dur) 40 meq BID ORAL 02/25/20 09:30 05/24/20 09:29 02/25/20 10:11 Sodium Chloride 300 ml @ 100 mls/hr Q3H IV 02/25/20 10:00 02/25/20 12:59 02/25/20 10:09 Trazodone HCl (Desyrel) 50 mg BEDTIME ORAL 02/24/20 21:00 03/25/20 20:59 02/24/20 21:34 Assessment/Plan Assessment/Plan IMPRESSION: 1. Asthma, stable. 2. Status post fall. 3. HIV positivity. 4. Hypertension. DISCUSSION: Continue current medications, Potassium replaced; still low today; further replacement ordered Asthma stable I will follow. Sakshi Beth Omar Syed MD February 25, 2020 10:19
--- NOTE | 2020-02-25 11:00 | NUR ---
RD ASSESSMENT & RECOMMENDATIONS SEE CARE ACTIVITY FOR COMPLETE ASSESSMENT DAILY ESTIMATED NEEDS: Needs based on cardiac, HIV, 86kg abw 25-30 kcals/kg 2072-5924 total kcals 1-1.3 g protein/kg 86-111 g total protein 25-30 mL/kg 1145-5528 total fluid mLs NUTRITION DIAGNOSIS: Altered nutrition related lab values R/T diabetes? as evidenced by A1C of 6.7, elev BGs (113, 210). CURRENT DIET:CARDIAC PO DIET RECOMMENDATIONS: CARDIAC + CCHO MED ADDITIONAL RECOMMENDATIONS: * Standing wt for accurate CBW * Carb controlled diet * Add NISS for improved BG control: A1C 6.7 * add folic acid 1mg QD (folate 7.2) * Monitor lytes, replete as needed (low K)
--- NOTE | 2020-02-25 11:04 | NUR ---
CASE MANAGEMENT:REVIEW 02/25/20 SI: HYPOKALEMIA. ASTHMA. HTN. HIV 8COVID 19 NOT DETECTED 97.7 77 20 127/80 98% ON 2L/NC H/H-12.8/38.1 K-2.8 BUN+21 CR+2.2 IS: IV KCL Q1HRS X3 BAGS IVF NS @ 100/HR K-DUR PO BID NORVASC PO QD WELLBUTRIN PO QD COLACE PO BID : TELEMETRY STATUS DCP: FROM HOME
--- NOTE | 2020-02-25 11:24 | Nephrology Progress Note ---
Assessment/Plan Problem List: (1) LEE (acute kidney injury) (2) Hypokalemia (3) HTN (hypertension) (4) HIV disease Assessment Renal failure appears to be chronic, may have superimposed acute component Hypo-kalemia History of hypertension History of HIV disease History of diverticulitis Proteinuria with 1+ leukocyte Estrace Plan Stop Dyazide, stop Lotensin Potassium supplement p.o. and IV Adjust blood pressure medication Avoid nephrotoxic's Urine studies, urine culture Kidney ultrasound Monitor renal parameters Per orders Subjective ROS Limited/Unobtainable: No Constitutional: Reports: malaise Objective Objective Last 24 Hour Vital Signs Date Time Temp Pulse Resp B/P (MAP) Pulse Ox O2 Delivery O2 Flow Rate FiO2 02/25/20 10:10 77 127/80 02/25/20 08:00 97.7 77 20 127/80 (96) 98 02/25/20 07:28 82 02/25/20 04:00 97.7 63 18 102/60 (74) 95 02/25/20 04:00 76 02/25/20 00:00 84 02/25/20 00:00 98.2 74 19 138/86 (103) 97 02/24/20 21:00 Nasal Cannula 2.0 02/24/20 20:00 98.0 76 18 135/85 (102) 98 02/24/20 20:00 76 02/24/20 17:00 80 02/24/20 17:00 97.3 73 20 132/76 (94) 91 02/24/20 13:30 76 138/80 02/24/20 12:00 97.5 73 20 138/80 (99) 93 02/24/20 12:00 76 Intake and Output 02/24/20 02/25/20 19:00 07:00 Intake Total 720 ml Output Total 800 ml Balance -80 ml Intake Oral 720 ml Output Urine Total 800 ml # Bowel Movements 1 1 Laboratory Tests 02/24/20 11:40: Urine Color Pale yellow, Urine Appearance Clear, Urine pH 6.5, Urine Specific [place] 1.010, Urine Protein 2+H, Urine Glucose (UA) Negative, Urine Ketones Negative, Urine Blood 2+H, Urine Nitrite Negative, Urine Bilirubin Negative, Urine Urobilinogen Normal, Urine Leukocyte Esterase 1+H, Urine RBC 2-4H, Urine WBC 2-4, Urine Squamous Epithelial Cells Occasional, Urine Bacteria Occasional, Urine Random Sodium 62 02/24/20 17:20: Troponin I 0.027 02/25/20 04:15: Urine Eosinophils None seen 02/25/20 06:13: Troponin I 0.033, White Blood Count 7.7, Red Blood Count 4.83, Hemoglobin 12.8L , Hematocrit 38.1L, Mean Corpuscular Volume 79L, Mean Corpuscular Hemoglobin 26.6L, Mean Corpuscular Hemoglobin Concent 33.7, Red Cell Distribution Width 12.3, Platelet Count 166, Mean Platelet Volume 5.8L, Neutrophils (%) (Auto) 61.4 , Lymphocytes (%) (Auto) 25.2, Monocytes (%) (Auto) 7.7, Eosinophils (%) (Auto) 5.0H, Basophils (%) (Auto) 0.7, Sodium Level 144, Potassium Level 2.8L, Chloride Level 106, Carbon Dioxide Level 30, Anion Gap 8, Blood Urea Nitrogen 21H, Creatinine 2.2H, Estimat Glomerular Filtration Rate 37.1, Glucose Level 113 #H, Hemoglobin A1c 6.7H, Uric Acid 7.0, Calcium Level 8.5, Phosphorus Level 4.1 , Magnesium Level 2.2, Iron Level 35L, Total Iron Binding Capacity 294, Percent Iron Saturation 12L, Unsaturated Iron Binding 259, Ferritin 51, Total Bilirubin 0.4, Gamma Glutamyl Transpeptidase 28, Aspartate Amino Transf (AST/SGOT) 13L, Alanine Aminotransferase (ALT/SGPT) 17, Alkaline Phosphatase 78, Lactate Dehydrogenase 167, Total Creatine Kinase 113, C-Reactive Protein, Quantitative 5.4H, Pro-B-Type Natriuretic Peptide 258H, Total Protein 6.7, Albumin 3.0L, Globulin 3.7, Albumin/Globulin Ratio 0.8L, Triglycerides Level 110, Cholesterol Level 89, LDL Cholesterol 45, HDL Cholesterol 27L, Cholesterol/HDL Ratio 3.3, Vitamin B12 Level 206, Folate 7.2L, Thyroid Stimulating Hormone (TSH) 2.318 Height (Feet): 5 Height (Inches): 11.00 Weight (Pounds): 244 General Appearance: no apparent distress, lethargic Cardiovascular: normal rate Respiratory/Chest: decreased breath sounds Abdomen: distended Tawanda Holbrook MD February 25, 2020 11:24
[2020-02-25 12:00] VITALS: BP 146/99
--- NOTE | 2020-02-25 13:19 | General Progress Note ---
Assessment/Plan Problem List: (1) SOB (shortness of breath) ICD Codes: R06.02 - Shortness of breath SNOMED: 909627023 (2) Suspected COVID-19 virus infection ICD Codes: Z20.828 - Contact with and (suspected) exposure to other viral communicable diseases SNOMED: 221886000 (3) Hypokalemia ICD Codes: E87.6 - Hypokalemia SNOMED: 69653327 (4) Chest pain ICD Codes: R07.9 - Chest pain, unspecified SNOMED: 90217863 Qualifiers: Qualified Codes: R07.9 - Chest pain, unspecified (5) LEE (acute kidney injury) ICD Codes: N17.9 - Acute kidney failure, unspecified SNOMED: 99886029, 9873694 (6) HTN (hypertension) ICD Codes: I10 - Essential (primary) hypertension SNOMED: 92552859 Status: unchanged Assessment/Plan: o2 pulm tx abx pt diet cbc bmp am Subjective Constitutional: Reports: weakness Allergies: Coded Allergies: No Known Allergies (Unverified , 10/10/16) All Systems: reviewed and negative except above Subjective sleepy calm Objective Last 24 Hour Vital Signs Date Time Temp Pulse Resp B/P (MAP) Pulse Ox O2 Delivery O2 Flow Rate FiO2 02/25/20 12:00 97.3 79 18 146/99 (115) 98 02/25/20 10:10 77 127/80 02/25/20 08:00 97.7 77 20 127/80 (96) 98 02/25/20 07:28 82 02/25/20 04:00 97.7 63 18 102/60 (74) 95 02/25/20 04:00 76 02/25/20 00:00 84 02/25/20 00:00 98.2 74 19 138/86 (103) 97 02/24/20 21:00 Nasal Cannula 2.0 02/24/20 20:00 98.0 76 18 135/85 (102) 98 02/24/20 20:00 76 02/24/20 17:00 80 02/24/20 17:00 97.3 73 20 132/76 (94) 91 02/24/20 13:30 76 138/80 Intake and Output 02/24/20 02/25/20 19:00 07:00 Intake Total 720 ml Output Total 800 ml Balance -80 ml Intake Oral 720 ml Output Urine Total 800 ml # Bowel Movements 1 1 Laboratory Tests 02/24/20 17:20: Troponin I 0.027 02/25/20 04:15: Urine Eosinophils None seen 02/25/20 06:13: Troponin I 0.033, White Blood Count 7.7, Red Blood Count 4.83, Hemoglobin 12.8L , Hematocrit 38.1L, Mean Corpuscular Volume 79L, Mean Corpuscular Hemoglobin 26.6L, Mean Corpuscular Hemoglobin Concent 33.7, Red Cell Distribution Width 12.3, Platelet Count 166, Mean Platelet Volume 5.8L, Neutrophils (%) (Auto) 61.4 , Lymphocytes (%) (Auto) 25.2, Monocytes (%) (Auto) 7.7, Eosinophils (%) (Auto) 5.0H, Basophils (%) (Auto) 0.7, Sodium Level 144, Potassium Level 2.8L, Chloride Level 106, Carbon Dioxide Level 30, Anion Gap 8, Blood Urea Nitrogen 21H, Creatinine 2.2H, Estimat Glomerular Filtration Rate 37.1, Glucose Level 113 #H, Hemoglobin A1c 6.7H, Uric Acid 7.0, Calcium Level 8.5, Phosphorus Level 4.1 , Magnesium Level 2.2, Iron Level 35L, Total Iron Binding Capacity 294, Percent Iron Saturation 12L, Unsaturated Iron Binding 259, Ferritin 51, Total Bilirubin 0.4, Gamma Glutamyl Transpeptidase 28, Aspartate Amino Transf (AST/SGOT) 13L, Alanine Aminotransferase (ALT/SGPT) 17, Alkaline Phosphatase 78, Lactate Dehydrogenase 167, Total Creatine Kinase 113, C-Reactive Protein, Quantitative 5.4H, Pro-B-Type Natriuretic Peptide 258H, Total Protein 6.7, Albumin 3.0L, Globulin 3.7, Albumin/Globulin Ratio 0.8L, Triglycerides Level 110, Cholesterol Level 89, LDL Cholesterol 45, HDL Cholesterol 27L, Cholesterol/HDL Ratio 3.3, Vitamin B12 Level 206, Folate 7.2L, Thyroid Stimulating Hormone (TSH) 2.318 Height (Feet): 5 Height (Inches): 11.00 Weight (Pounds): 244 General Appearance: lethargic EENT: normal ENT inspection Neck: normal alignment Cardiovascular: normal rate, regular rhythm Respiratory/Chest: no respiratory distress, no accessory muscle use Extremities: normal inspection Skin: normal pigmentation Holt,Zeyad Chi-Eunice DO February 25, 2020 13:19
--- NOTE | 2020-02-25 13:27 | Cardiac Electrophysiology PN ---
Assessment/Plan Assessment/Plan 1. Chest pain. Ruled out for myocardial infarction with serial cardiac enzymes. The EKG no acute ischemic changes. EKG. Echocardiogram EF 60% Stress test after hypokalemia is corrected and after ruled out for COVID 2. Profound hypokalemia with potassium 2.3. Is been replaced by Dr. Holbrook. 3. Hypertension. Continue amlodipine 5 mg daily and hydralazine p.r.n. 4. Shortness of breath. Is being ruled out for COVID. Currently off antibiotic. 5. HIV. 6. History of diverticulitis. Subjective Subjective In isolation to R/O Covid. Stress test cancelled for hypokalemia and untill Covid negative. No CP Objective Last 24 Hour Vital Signs Date Time Temp Pulse Resp B/P (MAP) Pulse Ox O2 Delivery O2 Flow Rate FiO2 02/25/20 12:00 97.3 79 18 146/99 (115) 98 02/25/20 10:10 77 127/80 02/25/20 09:00 Nasal Cannula 2.0 02/25/20 08:00 97.7 77 20 127/80 (96) 98 02/25/20 07:28 82 02/25/20 04:00 97.7 63 18 102/60 (74) 95 02/25/20 04:00 76 02/25/20 00:00 84 02/25/20 00:00 98.2 74 19 138/86 (103) 97 02/24/20 21:00 Nasal Cannula 2.0 02/24/20 20:00 98.0 76 18 135/85 (102) 98 02/24/20 20:00 76 02/24/20 17:00 80 02/24/20 17:00 97.3 73 20 132/76 (94) 91 02/24/20 13:30 76 138/80 Intake and Output 02/24/20 02/25/20 19:00 07:00 Intake Total 720 ml Output Total 800 ml Balance -80 ml Intake Oral 720 ml Output Urine Total 800 ml # Bowel Movements 1 1 Laboratory Tests Test 02/24/20 17:20 02/25/20 04:15 02/25/20 06:13 Troponin I 0.027 ng/mL (0.000-0.056) 0.033 ng/mL (0.000-0.056) Urine Eosinophils None seen (NONE SEEN) White Blood Count 7.7 K/UL (4.8-10.8) Red Blood Count 4.83 M/UL (4.70-6.10) Hemoglobin 12.8 G/DL (14.2-18.0) L Hematocrit 38.1 % (42.0-52.0) L Mean Corpuscular Volume 79 FL (80-99) L Mean Corpuscular Hemoglobin 26.6 PG (27.0-31.0) L Mean Corpuscular Hemoglobin Concent 33.7 G/DL (32.0-36.0) Red Cell Distribution Width 12.3 % (11.6-14.8) Platelet Count 166 K/UL (150-450) Mean Platelet Volume 5.8 FL (6.5-10.1) L Neutrophils (%) (Auto) 61.4 % (45.0-75.0) Lymphocytes (%) (Auto) 25.2 % (20.0-45.0) Monocytes (%) (Auto) 7.7 % (1.0-10.0) Eosinophils (%) (Auto) 5.0 % (0.0-3.0) H Basophils (%) (Auto) 0.7 % (0.0-2.0) Sodium Level 144 MMOL/L (136-145) Potassium Level 2.8 MMOL/L (3.5-5.1) L Chloride Level 106 MMOL/L (98-107) Carbon Dioxide Level 30 MMOL/L (21-32) Anion Gap 8 mmol/L (5-15) Blood Urea Nitrogen 21 mg/dL (7-18) H Creatinine 2.2 MG/DL (0.55-1.30) H Estimat Glomerular Filtration Rate 37.1 mL/min (>60) Glucose Level 113 MG/DL (74-106) #H Hemoglobin A1c 6.7 % (4.3-6.0) H Uric Acid 7.0 MG/DL (2.6-7.2) Calcium Level 8.5 MG/DL (8.5-10.1) Phosphorus Level 4.1 MG/DL (2.5-4.9) Magnesium Level 2.2 MG/DL (1.8-2.4) Iron Level 35 ug/dL (50-175) L Total Iron Binding Capacity 294 ug/dL (250-450) Percent Iron Saturation 12 % (15-50) L Unsaturated Iron Binding 259 ug/dL (112-346) Ferritin 51 NG/ML (8-388) Total Bilirubin 0.4 MG/DL (0.2-1.0) Gamma Glutamyl Transpeptidase 28 U/L (5-85) Aspartate Amino Transf (AST/SGOT) 13 U/L (15-37) L Alanine Aminotransferase (ALT/SGPT) 17 U/L (12-78) Alkaline Phosphatase 78 U/L (46-116) Lactate Dehydrogenase 167 U/L (81-234) Total Creatine Kinase 113 U/L (26-308) C-Reactive Protein, Quantitative 5.4 mg/dL (0.00-0.90) H Pro-B-Type Natriuretic Peptide 258 pg/mL (0-125) H Total Protein 6.7 G/DL (6.4-8.2) Albumin 3.0 G/DL (3.4-5.0) L Globulin 3.7 g/dL Albumin/Globulin Ratio 0.8 (1.0-2.7) L Triglycerides Level 110 MG/DL (30-150) Cholesterol Level 89 MG/DL (< 200) LDL Cholesterol 45 mg/dL (<100) HDL Cholesterol 27 MG/DL (40-60) L Cholesterol/HDL Ratio 3.3 (3.3-4.4) Vitamin B12 Level 206 PG/ML (193-986) Folate 7.2 NG/ML (8.6-58.9) L Thyroid Stimulating Hormone (TSH) 2.318 uiU/mL (0.358-3.740) Microbiology Date/Time Source Procedure Growth Status 02/23/20 17:39 Nasopharynx Coronavirus COVID-19 PCR ([facility]) - Final Complete Objective HEAD AND NECK: No JVD. LUNGS: Clear. CARDIOVASCULAR: Regular S1 and S2 with no murmur. ABDOMEN: Soft, obese. EXTREMITIES: No pitting edema. Thony Augustine MD February 25, 2020 13:27
--- NOTE | 2020-02-25 14:21 | Consultation ---
History of Present Illness General Date patient seen: February 25, 2020 Chief Complaint: Chest Pain Present Illness HPI 59 y/o M with hx of HTN, HIV (dx'ed over 25 years ago- currently on Juluca, previously on Atripla), diverticulitis, asthma presented to ED on 02/22 with 4 days of SOB, FORTUNE, cough and chest pain. Chest pain worsened by exertion and relieved with rest. Cough is infrequent; currently not cough. Still feels SOB- it is both at rest and with exertion. Currently on 2l NC. NOrmaly he is at RA. HE also complains of R ankle pain, no trauma or injury, no redness or warmth; has mild swelling in the area. Denied MIRANDA, night sweats, nausea, vomiting, abd pain. Allergies: Coded Allergies: No Known Allergies (Unverified , 10/10/16) Medication History Scheduled Amlodipine Besylate* (Amlodipine Besylate*), 10 MG ORAL DAILY, (Reported) Benazepril Hcl* (Benazepril Hcl*), 40 MG ORAL DAILY, (Reported) Bupropion Hcl* (Wellbutrin Xl*), 150 MG ORAL DAILY, (Reported) Bupropion Hcl* (Wellbutrin Xl*), 150 MG ORAL DAILY, (Reported) Cephalexin* (Keflex*), 500 MG ORAL Q6H Efavirenz/Emtricitab/Tenofovir (Atripla), 1 TAB ORAL DAILY, (Reported) Metoprolol Tartrate* (Metoprolol Tartrate*), 100 MG ORAL EVERY 12 HOURS, ( Reported) Promethazine HCl/Codeine (Prometh-Codein 6.25-10 mg/5 ml), 5 ML PO QHS Trazodone* (Trazodone*), 50 MG ORAL BEDTIME, (Reported) Triamterene/Hydrochlorothiazid (Triamterene-Hctz 75-50 Mg Tab), 1 TAB ORAL DAILY , (Reported) Miscellaneous Medications Diazepam* (Diazepam*), 10 MG ORAL, (Reported) Patient History Healthcare decision maker Resuscitation status Advanced Directive on File Patient History Narrative PMhx: As above Shx: reviewed FMHx: non contributory Review of Systems All Other Systems: negative except mentioned in HPI Physical Exam Physical Exam Narrative GENERAL: Lethargic, sleepy in bed. HEENT: Normocephalic, atraumatic. NECK: Trachea midline. CARDIOVASCULAR: No peripheral edema. PULMONARY: Breathing comfortably on room air. ABDOMEN: No apparent wound. EXTREMITIES: Show no cyanosis or clubbing. Last 24 Hour Vital Signs Date Time Temp Pulse Resp B/P (MAP) Pulse Ox O2 Delivery O2 Flow Rate FiO2 02/25/20 12:00 97.3 79 18 146/99 (115) 98 02/25/20 11:36 80 02/25/20 10:10 77 127/80 02/25/20 09:00 Nasal Cannula 2.0 02/25/20 08:00 97.7 77 20 127/80 (96) 98 02/25/20 07:28 82 02/25/20 04:00 97.7 63 18 102/60 (74) 95 02/25/20 04:00 76 02/25/20 00:00 84 02/25/20 00:00 98.2 74 19 138/86 (103) 97 02/24/20 21:00 Nasal Cannula 2.0 02/24/20 20:00 98.0 76 18 135/85 (102) 98 02/24/20 20:00 76 02/24/20 17:00 80 02/24/20 17:00 97.3 73 20 132/76 (94) 91 Intake and Output 02/24/20 02/25/20 19:00 07:00 Intake Total 720 ml Output Total 800 ml Balance -80 ml Intake Oral 720 ml Output Urine Total 800 ml # Bowel Movements 1 1 Laboratory Tests Test 02/24/20 17:20 02/25/20 04:15 02/25/20 06:13 Troponin I 0.027 ng/mL (0.000-0.056) 0.033 ng/mL (0.000-0.056) Urine Eosinophils None seen (NONE SEEN) White Blood Count 7.7 K/UL (4.8-10.8) Red Blood Count 4.83 M/UL (4.70-6.10) Hemoglobin 12.8 G/DL (14.2-18.0) L Hematocrit 38.1 % (42.0-52.0) L Mean Corpuscular Volume 79 FL (80-99) L Mean Corpuscular Hemoglobin 26.6 PG (27.0-31.0) L Mean Corpuscular Hemoglobin Concent 33.7 G/DL (32.0-36.0) Red Cell Distribution Width 12.3 % (11.6-14.8) Platelet Count 166 K/UL (150-450) Mean Platelet Volume 5.8 FL (6.5-10.1) L Neutrophils (%) (Auto) 61.4 % (45.0-75.0) Lymphocytes (%) (Auto) 25.2 % (20.0-45.0) Monocytes (%) (Auto) 7.7 % (1.0-10.0) Eosinophils (%) (Auto) 5.0 % (0.0-3.0) H Basophils (%) (Auto) 0.7 % (0.0-2.0) Sodium Level 144 MMOL/L (136-145) Potassium Level 2.8 MMOL/L (3.5-5.1) L Chloride Level 106 MMOL/L (98-107) Carbon Dioxide Level 30 MMOL/L (21-32) Anion Gap 8 mmol/L (5-15) Blood Urea Nitrogen 21 mg/dL (7-18) H Creatinine 2.2 MG/DL (0.55-1.30) H Estimat Glomerular Filtration Rate 37.1 mL/min (>60) Glucose Level 113 MG/DL (74-106) #H Hemoglobin A1c 6.7 % (4.3-6.0) H Uric Acid 7.0 MG/DL (2.6-7.2) Calcium Level 8.5 MG/DL (8.5-10.1) Phosphorus Level 4.1 MG/DL (2.5-4.9) Magnesium Level 2.2 MG/DL (1.8-2.4) Iron Level 35 ug/dL (50-175) L Total Iron Binding Capacity 294 ug/dL (250-450) Percent Iron Saturation 12 % (15-50) L Unsaturated Iron Binding 259 ug/dL (112-346) Ferritin 51 NG/ML (8-388) Total Bilirubin 0.4 MG/DL (0.2-1.0) Gamma Glutamyl Transpeptidase 28 U/L (5-85) Aspartate Amino Transf (AST/SGOT) 13 U/L (15-37) L Alanine Aminotransferase (ALT/SGPT) 17 U/L (12-78) Alkaline Phosphatase 78 U/L (46-116) Lactate Dehydrogenase 167 U/L (81-234) Total Creatine Kinase 113 U/L (26-308) C-Reactive Protein, Quantitative 5.4 mg/dL (0.00-0.90) H Pro-B-Type Natriuretic Peptide 258 pg/mL (0-125) H Total Protein 6.7 G/DL (6.4-8.2) Albumin 3.0 G/DL (3.4-5.0) L Globulin 3.7 g/dL Albumin/Globulin Ratio 0.8 (1.0-2.7) L Triglycerides Level 110 MG/DL (30-150) Cholesterol Level 89 MG/DL (< 200) LDL Cholesterol 45 mg/dL (<100) HDL Cholesterol 27 MG/DL (40-60) L Cholesterol/HDL Ratio 3.3 (3.3-4.4) Vitamin B12 Level 206 PG/ML (193-986) Folate 7.2 NG/ML (8.6-58.9) L Thyroid Stimulating Hormone (TSH) 2.318 uiU/mL (0.358-3.740) Height (Feet): 5 Height (Inches): 11.00 Weight (Pounds): 244 Medications Current Medications Medications (Trade) Dose Ordered Sig/Mamie Route PRN Reason Start Time Stop Time Status Last Admin Dose Admin Acetaminophen/ Hydrocodone Bitart ([place] 5/325) 1 tab Q6H PRN ORAL For Pain 02/23/20 22:00 03/01/20 21:59 02/24/20 21:42 Amlodipine Besylate (Norvasc) 5 mg DAILY ORAL 02/26/20 09:00 03/26/20 08:59 Bupropion HCl (Wellbutrin XL) 150 mg DAILY ORAL 02/24/20 09:00 03/25/20 08:59 02/25/20 10:09 Docusate Sodium (Colace) 100 mg TID ORAL 02/25/20 13:00 03/25/20 08:59 02/25/20 13:07 Folic Acid (Folate) 1 mg DAILY ORAL 02/25/20 11:30 03/26/20 11:29 02/25/20 11:33 Hydralazine HCl (Apresoline) 25 mg Q4H PRN ORAL Blood pressure over 160 systol 5/13/20 12:45 05/24/20 12:44 Potassium Chloride (K-Dur) 40 meq BID ORAL 02/25/20 09:30 05/24/20 09:29 02/25/20 10:11 Trazodone HCl (Desyrel) 50 mg BEDTIME ORAL 02/24/20 21:00 03/25/20 20:59 02/24/20 21:34 Assessment/Plan Assessment/Plan: Abx: None Assessment: Afebrile MIld leukocytosis/lymphopenia- SP -u/a neg Chest pain/Dyspnea- on 2l nC- ?etiology- r/o PE, ?diastolic CHF vs pulmonary edema given renal failure (CXR is normal, waiting for repeat CXR), r/o COVID ( will order 2nd test) -02/22 CXR: no acute disease SARS-COV2 PCR neg trops neg x3 EKG no ischemic changes R ankle pain- no evidence of cellulitis, mild swelling- r/o DVT -R ankle xray: No displaced fracture or dislocation identified. LEE vs CKD HIV- dx'ed 25 yrs ago- on treatment, currently on Juluca (previously on Atripla ) -per pt HIV VL UD and CD4 800s (last lab Oct 2019) HTN diverticulitis asthma Obesity Plan: -Continue to monitor off abx -f/u cx -Monitor CBC/CMP, temperatures -COVID19 isolation- will send 2nd test as unclear etiology of dyspnea and requirement of O2 -CT chest wo, V. duplex BLE -Continue HAART: Dolutegravir 50mg/Rilpivirine 25mg once daily -Osman Estrada f/u Thank you for consulting [facility]. Will contiue to follow along with you. Discussed with Mitzi Devries M.D. February 25, 2020 14:20
[2020-02-25 16:00] VITALS: BP 145/72
[2020-02-25] MEDS: HYDROcodone/Acetamin 5/325 tab ORAL PRN ×2 (16:32→17:48)
--- NOTE | 2020-02-25 16:52 | NUR ---
NURSE NOTES: pt refused norco and asked for Dilaudid, Pattison returned to pexis and Dr Holt is aware about Dilaudid, waiting to call back.
--- NOTE | 2020-02-25 17:17 | NUR ---
NURSE NOTES: Receipt [id number] received from pharmacy and put in pt's chart.
--- NOTE | 2020-02-25 17:29 | NUR ---
NURSE NOTES: Dr Holt called back and ordered to ask Dr Victoria to Dilaudid, Dr Victoria notified, waiting to call back. will continue to monitor.
--- NOTE | 2020-02-25 17:45 | NUR ---
NURSE NOTES: Dr Victoria called back and stated he won't order Dilaudid, pt is aware.
--- NOTE | 2020-02-25 18:09 | NUR ---
NURSE NOTES: U/C and covid swab sent to lab, waiting for result.
--- NOTE | 2020-02-25 19:30 | NUR ---
NURSE NOTES: Received pt and report from PILI Cazares. Observed pt resting in bed with both eyes open and watching TV. Pt is A/Ox4. youth nutritional monitor is in placed; pt is SR w/BBB. IV site intact, asymptomatic, and patent. Bed is in the lowest position and locked. Call light and bedside table is within reach. No signs/symptoms of acute distress noted at this time. Will continue plan of care.
--- NOTE | 2020-02-25 19:39 | NUR ---
HAND-OFF: Report given to ALESSIA RN. Pt is awake and stable.
[2020-02-25 20:00] VITALS: BP 132/77
[2020-02-25] MEDS: TraZODone 50mg tab ORAL SCH (21:02)
[2020-02-26] VITALS: BP 142/73
[2020-02-26 04:00] VITALS: BP 145/95
--- NOTE | 2020-02-26 07:25 | NUR ---
HAND-OFF: Report given to PILI Medina. Plan of care endorsed.
[2020-02-26 07:29] LABS: ALANINE AMINOTRANSFERASE 20 U/L (12-78); ALBUMIN 2.8 G/DL (3.4-5.0); ALBUMIN/GLOBULIN RATIO 0.8 (1.0-2.7); ALKALINE PHOSPHATASE 81 U/L (46-116); ANION GAP 8 mmol/L (5-15); ASPARTATE AMINO TRANSFERASE 15 U/L (15-37); BILIRUBIN,TOTAL 0.3 MG/DL (0.2-1.0); BLOOD UREA NITROGEN 25 mg/dL (7-18); CALCIUM 8.5 MG/DL (8.5-10.1); CARBON DIOXIDE 29 MMOL/L (21-32); CHLORIDE 108 MMOL/L (98-107); CREATININE 2.2 MG/DL (0.55-1.30); POTASSIUM 3.1 MMOL/L (3.5-5.1); SODIUM 145 MMOL/L (136-145)
--- NOTE | 2020-02-26 07:30 | NUR ---
NURSE NOTES: Received report from PILI Calderon. Patient is sleeping in bed, observed no presence of pain or discomfort at this time. Bed is in lowest position, brakes engaged. Call light is kept within easy reach. Will continue to monitor patient.
[2020-02-26 07:39] LABS: BASOPHILS % (AUTO) 1.1 % (0.0-2.0); HEMATOCRIT 35.5 % (42.0-52.0); HEMOGLOBIN 12.2 G/DL (14.2-18.0); LYMPHOCYTES % (AUTO) 23.1 % (20.0-45.0); MEAN CORPUSCULAR VOLUME 79 FL (80-99); MONOCYTES % (AUTO) 9.1 % (1.0-10.0); NEUTROPHILS % (AUTO) 60.7 % (45.0-75.0); PLATELET COUNT 149 K/UL (150-450); RED BLOOD COUNT 4.48 M/UL (4.70-6.10); RED CELL DISTRIBUTION WIDTH 12.8 % (11.6-14.8); WHITE BLOOD COUNT 7.3 K/UL (4.8-10.8)
[2020-02-26 08:00] VITALS: BP 137/93
[2020-02-26] MEDS: BuPROPion XL 150mg tab ORAL SCH (08:57)
[2020-02-26] MEDS: Docusate 100mg cap ORAL SCH ×3 (08:57→17:56)
[2020-02-26] MEDS: EDURANT 25 MG ORAL SCH (08:58)
[2020-02-26] MEDS: Dolutegravir Sodium 50mg tab ORAL SCH (08:58)
[2020-02-26] MEDS ORDERED: Sodium Chloride for KCL Premix x 2hrs IV SCH (09:00)
--- NOTE | 2020-02-26 09:00 | NUR ---
NURSE NOTES: Dominga from CT department called nurse station and spoke with this nurse. Per Dominga unable to perform CT at this time due to patient being ruled out for COVID-19. Second swab pending. Will continue to monitor patient.
--- NOTE | 2020-02-26 09:40 | General Progress Note ---
Assessment/Plan Problem List: (1) SOB (shortness of breath) ICD Codes: R06.02 - Shortness of breath SNOMED: 227264542 (2) Suspected COVID-19 virus infection ICD Codes: Z20.828 - Contact with and (suspected) exposure to other viral communicable diseases SNOMED: 274257872 (3) Hypokalemia ICD Codes: E87.6 - Hypokalemia SNOMED: 67478196 (4) Chest pain ICD Codes: R07.9 - Chest pain, unspecified SNOMED: 84945335 Qualifiers: Qualified Codes: R07.9 - Chest pain, unspecified (5) LEE (acute kidney injury) ICD Codes: N17.9 - Acute kidney failure, unspecified SNOMED: 13791322, 5090243 (6) HTN (hypertension) ICD Codes: I10 - Essential (primary) hypertension SNOMED: 68591425 Status: unchanged Assessment/Plan: o2 pulm tx abx pt diet cardio f/u cbc bmp am Subjective Constitutional: Reports: weakness Allergies: Coded Allergies: No Known Allergies (Unverified , 10/10/16) All Systems: reviewed and negative except above Subjective sleepy calm Objective Last 24 Hour Vital Signs Date Time Temp Pulse Resp B/P (MAP) Pulse Ox O2 Delivery O2 Flow Rate FiO2 02/26/20 09:00 Nasal Cannula 2.0 02/26/20 08:57 89 137/93 02/26/20 08:00 97.0 89 20 137/93 (108) 95 02/26/20 04:00 97.2 89 20 145/95 (112) 95 02/26/20 04:00 89 02/26/20 00:00 91 02/26/20 00:00 97.9 91 19 142/73 (96) 95 02/25/20 21:00 Nasal Cannula 2.0 02/25/20 20:00 92 02/25/20 20:00 98.1 88 19 132/77 (95) 95 02/25/20 16:00 97.7 78 20 145/72 (96) 96 02/25/20 15:40 91 02/25/20 12:00 97.3 79 18 146/99 (115) 98 02/25/20 11:36 80 02/25/20 10:10 77 127/80 Intake and Output 02/25/20 02/26/20 19:00 07:00 Intake Total 1300 ml Balance 1300 ml Intake Oral 400 ml IV Total 900 ml # Voids 2 # Bowel Movements 1 1 Laboratory Tests 02/26/20 05:35: White Blood Count 7.3, Red Blood Count 4.48L, Hemoglobin 12.2L, Hematocrit 35.5L , Mean Corpuscular Volume 79L, Mean Corpuscular Hemoglobin 27.3, Mean Corpuscular Hemoglobin Concent 34.4, Red Cell Distribution Width 12.8, Platelet Count 149L, Mean Platelet Volume 6.0L, Neutrophils (%) (Auto) 60.7, Lymphocytes (%) (Auto) 23.1, Monocytes (%) (Auto) 9.1, Eosinophils (%) (Auto) 6.0H, Basophils (%) (Auto) 1.1, D-Dimer 0.56H, Sodium Level 145, Potassium Level 3.1L , Chloride Level 108H, Carbon Dioxide Level 29, Anion Gap 8, Blood Urea Nitrogen 25H, Creatinine 2.2H, Estimat Glomerular Filtration Rate 37.1, Glucose Level 135H, Calcium Level 8.5, Phosphorus Level 3.0, Magnesium Level 2.3, Total Bilirubin 0.3, Aspartate Amino Transf (AST/SGOT) 15, Alanine Aminotransferase ( ALT/SGPT) 20, Alkaline Phosphatase 81, C-Reactive Protein, Quantitative 4.0H, Total Protein 6.3L, Albumin 2.8L, Globulin 3.5, Albumin/Globulin Ratio 0.8L Height (Feet): 5 Height (Inches): 11.00 Weight (Pounds): 244 General Appearance: lethargic EENT: normal ENT inspection Neck: normal alignment Cardiovascular: normal rate, regular rhythm Respiratory/Chest: no respiratory distress, no accessory muscle use Extremities: normal inspection Skin: normal pigmentation Zeyad Holt DO February 26, 2020 09:40
--- NOTE | 2020-02-26 10:31 | Nephrology Progress Note ---
Assessment/Plan Problem List: (1) LEE (acute kidney injury) (2) Hypokalemia (3) HTN (hypertension) (4) HIV disease (5) DMII (diabetes mellitus, type 2) Assessment Renal failure appears to be chronic, may have superimposed acute component Hypo-kalemia History of hypertension History of HIV disease History of diverticulitis Proteinuria with 1+ leukocyte Estrace Plan Serum creatinine remains stable Patient denies any diarrhea and under control he complains of constipation Serum potassium stays low but improved Will give more potassium oral and IV Start Flomax Change diet to medium carbohydrates Switch to Lopressor from [employer] Previously: Stop Dyazide, stop Lotensin Potassium supplement p.o. and IV Adjust blood pressure medication Avoid nephrotoxic's Urine studies, urine culture Kidney ultrasound pending results Monitor renal parameters Per orders Subjective ROS Limited/Unobtainable: No Constitutional: Reports: malaise Objective Objective Last 24 Hour Vital Signs Date Time Temp Pulse Resp B/P (MAP) Pulse Ox O2 Delivery O2 Flow Rate FiO2 02/26/20 09:00 Nasal Cannula 2.0 02/26/20 08:57 89 137/93 02/26/20 08:00 85 02/26/20 08:00 97.0 89 20 137/93 (108) 95 02/26/20 04:00 97.2 89 20 145/95 (112) 95 02/26/20 04:00 89 02/26/20 00:00 91 02/26/20 00:00 97.9 91 19 142/73 (96) 95 02/25/20 21:00 Nasal Cannula 2.0 02/25/20 20:00 92 02/25/20 20:00 98.1 88 19 132/77 (95) 95 02/25/20 16:00 97.7 78 20 145/72 (96) 96 02/25/20 15:40 91 02/25/20 12:00 97.3 79 18 146/99 (115) 98 02/25/20 11:36 80 Intake and Output 02/25/20 02/26/20 19:00 07:00 Intake Total 1300 ml Balance 1300 ml Intake Oral 400 ml IV Total 900 ml # Voids 2 # Bowel Movements 1 1 Laboratory Tests 02/26/20 05:35: White Blood Count 7.3, Red Blood Count 4.48L, Hemoglobin 12.2L, Hematocrit 35.5L , Mean Corpuscular Volume 79L, Mean Corpuscular Hemoglobin 27.3, Mean Corpuscular Hemoglobin Concent 34.4, Red Cell Distribution Width 12.8, Platelet Count 149L, Mean Platelet Volume 6.0L, Neutrophils (%) (Auto) 60.7, Lymphocytes (%) (Auto) 23.1, Monocytes (%) (Auto) 9.1, Eosinophils (%) (Auto) 6.0H, Basophils (%) (Auto) 1.1, D-Dimer 0.56H, Sodium Level 145, Potassium Level 3.1L , Chloride Level 108H, Carbon Dioxide Level 29, Anion Gap 8, Blood Urea Nitrogen 25H, Creatinine 2.2H, Estimat Glomerular Filtration Rate 37.1, Glucose Level 135H, Calcium Level 8.5, Phosphorus Level 3.0, Magnesium Level 2.3, Total Bilirubin 0.3, Aspartate Amino Transf (AST/SGOT) 15, Alanine Aminotransferase ( ALT/SGPT) 20, Alkaline Phosphatase 81, C-Reactive Protein, Quantitative 4.0H, Total Protein 6.3L, Albumin 2.8L, Globulin 3.5, Albumin/Globulin Ratio 0.8L Height (Feet): 5 Height (Inches): 11.00 Weight (Pounds): 244 General Appearance: no apparent distress Cardiovascular: tachycardia - Rate in 80s Respiratory/Chest: decreased breath sounds Abdomen: soft, distended Tawanda Holbrook MD February 26, 2020 10:31
[2020-02-26] MEDS ORDERED: Metoprolol Tartrate 12.5mg TAB ORAL SCH (10:45)
[2020-02-26] MEDS: Tamsulosin 0.4mg cap ORAL SCH ×2 (11:11→17:49)
--- NOTE | 2020-02-26 11:27 | Pulmonology Progress Note ---
Subjective ROS Limited/Unobtainable: No Interval Events: None new Constitutional: Reports: no symptoms HEENT: Repors: no symptoms Respiratory: Reports: no symptoms Cardiovascular: Reports: no symptoms Gastrointestinal/Abdominal: Reports: no symptoms Allergies: Coded Allergies: No Known Allergies (Unverified , 10/10/16) All Systems: reviewed and negative except above Objective Last 24 Hour Vital Signs Date Time Temp Pulse Resp B/P (MAP) Pulse Ox O2 Delivery O2 Flow Rate FiO2 02/26/20 11:15 89 137/93 02/26/20 09:00 Nasal Cannula 2.0 02/26/20 08:57 89 137/93 02/26/20 08:00 85 02/26/20 08:00 97.0 89 20 137/93 (108) 95 02/26/20 04:00 97.2 89 20 145/95 (112) 95 02/26/20 04:00 89 02/26/20 00:00 91 02/26/20 00:00 97.9 91 19 142/73 (96) 95 02/25/20 21:00 Nasal Cannula 2.0 02/25/20 20:00 92 02/25/20 20:00 98.1 88 19 132/77 (95) 95 02/25/20 16:00 97.7 78 20 145/72 (96) 96 02/25/20 15:40 91 02/25/20 12:00 97.3 79 18 146/99 (115) 98 02/25/20 11:36 80 Intake and Output 02/25/20 02/26/20 19:00 07:00 Intake Total 1300 ml Balance 1300 ml Intake Oral 400 ml IV Total 900 ml # Voids 2 # Bowel Movements 1 1 General Appearance: no acute distress HEENT: normocephalic Respiratory/Chest: chest wall non-tender Cardiovascular: normal peripheral pulses Abdomen: normal bowel sounds Microbiology Date/Time Source Procedure Growth Status 02/23/20 17:39 Nasopharynx Coronavirus COVID-19 PCR ([facility]) - Final Complete Laboratory Tests 02/26/20 05:35: White Blood Count 7.3, Red Blood Count 4.48L, Hemoglobin 12.2L, Hematocrit 35.5L , Mean Corpuscular Volume 79L, Mean Corpuscular Hemoglobin 27.3, Mean Corpuscular Hemoglobin Concent 34.4, Red Cell Distribution Width 12.8, Platelet Count 149L, Mean Platelet Volume 6.0L, Neutrophils (%) (Auto) 60.7, Lymphocytes (%) (Auto) 23.1, Monocytes (%) (Auto) 9.1, Eosinophils (%) (Auto) 6.0H, Basophils (%) (Auto) 1.1, D-Dimer 0.56H, Sodium Level 145, Potassium Level 3.1L , Chloride Level 108H, Carbon Dioxide Level 29, Anion Gap 8, Blood Urea Nitrogen 25H, Creatinine 2.2H, Estimat Glomerular Filtration Rate 37.1, Glucose Level 135H, Calcium Level 8.5, Phosphorus Level 3.0, Magnesium Level 2.3, Total Bilirubin 0.3, Aspartate Amino Transf (AST/SGOT) 15, Alanine Aminotransferase ( ALT/SGPT) 20, Alkaline Phosphatase 81, C-Reactive Protein, Quantitative 4.0H, Total Protein 6.3L, Albumin 2.8L, Globulin 3.5, Albumin/Globulin Ratio 0.8L Current Medications Medications (Trade) Dose Ordered Sig/Mamie Route PRN Reason Start Time Stop Time Status Last Admin Dose Admin Acetaminophen/ Hydrocodone Bitart ([place] 5/325) 1 tab Q6H PRN ORAL For Pain 02/23/20 22:00 03/01/20 21:59 02/25/20 17:48 Bupropion HCl (Wellbutrin XL) 150 mg DAILY ORAL 02/24/20 09:00 03/25/20 08:59 02/26/20 08:57 Docusate Sodium (Colace) 100 mg TID ORAL 02/25/20 13:00 03/25/20 08:59 02/26/20 08:57 Dolutegravir Sodium ([place]) 50 mg DAILY ORAL 02/26/20 09:00 05/26/20 08:59 02/26/20 08:58 Folic Acid (Folate) 1 mg DAILY ORAL 02/25/20 11:30 03/26/20 11:29 02/26/20 08:59 Hydralazine HCl (Apresoline) 25 mg Q4H PRN ORAL Blood pressure over 160 systol 02/24/20 12:45 05/24/20 12:44 Metoprolol Tartrate (Lopressor) 12.5 mg ONCE ORAL 02/26/20 10:45 02/26/20 11:45 02/26/20 11:15 Metoprolol Tartrate (Lopressor) 12.5 mg Q12HR ORAL 02/26/20 21:00 05/26/20 20:59 Patient Own Medication (Patient's Own Med) 1 ea DAILY ORAL 02/26/20 09:00 03/27/20 08:59 02/26/20 08:58 Potassium Chloride (K-Dur) 40 meq BID ORAL 02/25/20 09:30 05/24/20 09:29 02/26/20 09:00 Tamsulosin HCl (Flomax) 0.4 mg BID ORAL 02/26/20 10:30 03/27/20 10:29 02/26/20 11:11 Trazodone HCl (Desyrel) 50 mg BEDTIME ORAL 02/24/20 21:00 03/25/20 20:59 02/25/20 21:02 Assessment/Plan Assessment/Plan IMPRESSION: 1. Asthma, stable. 2. Status post fall. 3. HIV positivity. 4. Hypertension. DISCUSSION: Continue current medications, Potassium replaced; still low but better; further replacement ordered Asthma stable Will start Tylenol #4; dc [place] I will follow. Carlton Victoria M.D. Carlton Victoria MD February 26, 2020 11:27
[2020-02-26 12:00] VITALS: BP 132/95
[2020-02-26] MEDS: Tylenol #3 tab (300mg/30mg) ORAL PRN (12:07)
--- NOTE | 2020-02-26 13:24 | Cardiac Electrophysiology PN ---
Assessment/Plan Assessment/Plan 1. Chest pain. Ruled out for myocardial infarction with serial cardiac enzymes. The EKG no acute ischemic changes. EKG. Echocardiogram EF 60% Stress test after hypokalemia is corrected and after ruled out for COVID 2. Profound hypokalemia with potassium 2.3. Still 3.1. Is been replaced by Dr. Holbrook. 3. Hypertension. Continue amlodipine 5 mg daily and hydralazine p.r.n. 4. Shortness of breath. Is being ruled out for COVID. Currently off antibiotic. 5. HIV. 6. History of diverticulitis. DW Dr Holbrook Subjective Subjective First Covid is negative. Second Covid is pending. Stress test cancelled for hypokalemia and untill Covid negative. No CP Objective Last 24 Hour Vital Signs Date Time Temp Pulse Resp B/P (MAP) Pulse Ox O2 Delivery O2 Flow Rate FiO2 02/26/20 11:15 89 137/93 02/26/20 09:00 Nasal Cannula 2.0 02/26/20 08:57 89 137/93 02/26/20 08:00 85 02/26/20 08:00 97.0 89 20 137/93 (108) 95 02/26/20 04:00 97.2 89 20 145/95 (112) 95 02/26/20 04:00 89 02/26/20 00:00 91 02/26/20 00:00 97.9 91 19 142/73 (96) 95 02/25/20 21:00 Nasal Cannula 2.0 02/25/20 20:00 92 02/25/20 20:00 98.1 88 19 132/77 (95) 95 02/25/20 16:00 97.7 78 20 145/72 (96) 96 02/25/20 15:40 91 Intake and Output 02/25/20 02/26/20 19:00 07:00 Intake Total 1300 ml Balance 1300 ml Intake Oral 400 ml IV Total 900 ml # Voids 2 # Bowel Movements 1 1 Laboratory Tests Test 02/26/20 05:35 White Blood Count 7.3 K/UL (4.8-10.8) Red Blood Count 4.48 M/UL (4.70-6.10) L Hemoglobin 12.2 G/DL (14.2-18.0) L Hematocrit 35.5 % (42.0-52.0) L Mean Corpuscular Volume 79 FL (80-99) L Mean Corpuscular Hemoglobin 27.3 PG (27.0-31.0) Mean Corpuscular Hemoglobin Concent 34.4 G/DL (32.0-36.0) Red Cell Distribution Width 12.8 % (11.6-14.8) Platelet Count 149 K/UL (150-450) L Mean Platelet Volume 6.0 FL (6.5-10.1) L Neutrophils (%) (Auto) 60.7 % (45.0-75.0) Lymphocytes (%) (Auto) 23.1 % (20.0-45.0) Monocytes (%) (Auto) 9.1 % (1.0-10.0) Eosinophils (%) (Auto) 6.0 % (0.0-3.0) H Basophils (%) (Auto) 1.1 % (0.0-2.0) D-Dimer 0.56 mg/L FEU (0.00-0.49) H Sodium Level 145 MMOL/L (136-145) Potassium Level 3.1 MMOL/L (3.5-5.1) L Chloride Level 108 MMOL/L (98-107) H Carbon Dioxide Level 29 MMOL/L (21-32) Anion Gap 8 mmol/L (5-15) Blood Urea Nitrogen 25 mg/dL (7-18) H Creatinine 2.2 MG/DL (0.55-1.30) H Estimat Glomerular Filtration Rate 37.1 mL/min (>60) Glucose Level 135 MG/DL (74-106) H Calcium Level 8.5 MG/DL (8.5-10.1) Phosphorus Level 3.0 MG/DL (2.5-4.9) Magnesium Level 2.3 MG/DL (1.8-2.4) Total Bilirubin 0.3 MG/DL (0.2-1.0) Aspartate Amino Transf (AST/SGOT) 15 U/L (15-37) Alanine Aminotransferase (ALT/SGPT) 20 U/L (12-78) Alkaline Phosphatase 81 U/L (46-116) C-Reactive Protein, Quantitative 4.0 mg/dL (0.00-0.90) H Total Protein 6.3 G/DL (6.4-8.2) L Albumin 2.8 G/DL (3.4-5.0) L Globulin 3.5 g/dL Albumin/Globulin Ratio 0.8 (1.0-2.7) L Microbiology Date/Time Source Procedure Growth Status 02/23/20 17:39 Nasopharynx Coronavirus COVID-19 PCR ([facility]) - Final Complete Objective HEAD AND NECK: No JVD. LUNGS: Clear. CARDIOVASCULAR: Regular S1 and S2 with no murmur. ABDOMEN: Soft, obese. EXTREMITIES: No pitting edema. Thony Augustine MD February 26, 2020 13:24
--- NOTE | 2020-02-26 14:09 | Infectious Diseases Prog Note ---
Assessment/Plan Assessment/Plan Assessment: Afebrile MIld leukocytosis/lymphopenia- SP -u/a neg Chest pain/Dyspnea- on 2l nC- ?etiology- r/o PE, ?diastolic CHF vs pulmonary edema given renal failure (CXR is normal, waiting for repeat CXR), r/o COVID ( will order 2nd test) -02/24 CXR: NO ACUTE CARDIOPULMONARY DISEASE. -02/22 CXR: no acute disease SARS-COV2 PCR neg trops neg x3 EKG no ischemic changes R ankle pain- no evidence of cellulitis, mild swelling- -R ankle xray: No displaced fracture or dislocation identified. -v. duplex: UNREMARKABLE VENOUS DUPLEX. Hypokalemia LEE vs CKD -Renal US: LEFT RENAL STONE. NO HYDRONEPHROSIS.BILATERAL CORTICAL THINNING WITH SMALL RENAL CYSTS. HIV- dx'ed 25 yrs ago- on treatment, currently on Juluca (previously on Atripla ) -per pt HIV VL UD and CD4 800s (last lab Oct 2019) HTN diverticulitis asthma Obesity Plan: -Continue to monitor off abx -f/u cx -Monitor CBC/CMP, temperatures -COVID19 isolation- will send 2nd test as unclear etiology of dyspnea and requirement of O2 -f/u CT chest wo -Continue HAART: Dolutegravir 50mg/Rilpivirine 25mg once daily -Sean Pulm f/u Thank you for consulting [facility]. Will contiue to follow along with you. Discussed with RN. Subjective Allergies: Coded Allergies: No Known Allergies (Unverified , 10/10/16) Objective Vital Signs Last 24 Hour Vital Signs Date Time Temp Pulse Resp B/P (MAP) Pulse Ox O2 Delivery O2 Flow Rate FiO2 02/26/20 12:00 97.5 80 20 132/95 (107) 95 02/26/20 12:00 92 02/26/20 11:15 89 137/93 02/26/20 09:00 Nasal Cannula 2.0 02/26/20 08:57 89 137/93 02/26/20 08:00 85 02/26/20 08:00 97.0 89 20 137/93 (108) 95 02/26/20 04:00 97.2 89 20 145/95 (112) 95 02/26/20 04:00 89 02/26/20 00:00 91 02/26/20 00:00 97.9 91 19 142/73 (96) 95 02/25/20 21:00 Nasal Cannula 2.0 02/25/20 20:00 92 02/25/20 20:00 98.1 88 19 132/77 (95) 95 02/25/20 16:00 97.7 78 20 145/72 (96) 96 02/25/20 15:40 91 Height (Feet): 5 Height (Inches): 11.00 Weight (Pounds): 244 Objective not examined to limit COVID19 exposure Microbiology Date/Time Source Procedure Growth Status 02/23/20 17:39 Nasopharynx Coronavirus COVID-19 PCR ([facility]) - Final Complete Laboratory Tests Test 02/26/20 05:35 White Blood Count 7.3 K/UL (4.8-10.8) Red Blood Count 4.48 M/UL (4.70-6.10) L Hemoglobin 12.2 G/DL (14.2-18.0) L Hematocrit 35.5 % (42.0-52.0) L Mean Corpuscular Volume 79 FL (80-99) L Mean Corpuscular Hemoglobin 27.3 PG (27.0-31.0) Mean Corpuscular Hemoglobin Concent 34.4 G/DL (32.0-36.0) Red Cell Distribution Width 12.8 % (11.6-14.8) Platelet Count 149 K/UL (150-450) L Mean Platelet Volume 6.0 FL (6.5-10.1) L Neutrophils (%) (Auto) 60.7 % (45.0-75.0) Lymphocytes (%) (Auto) 23.1 % (20.0-45.0) Monocytes (%) (Auto) 9.1 % (1.0-10.0) Eosinophils (%) (Auto) 6.0 % (0.0-3.0) H Basophils (%) (Auto) 1.1 % (0.0-2.0) D-Dimer 0.56 mg/L FEU (0.00-0.49) H Sodium Level 145 MMOL/L (136-145) Potassium Level 3.1 MMOL/L (3.5-5.1) L Chloride Level 108 MMOL/L (98-107) H Carbon Dioxide Level 29 MMOL/L (21-32) Anion Gap 8 mmol/L (5-15) Blood Urea Nitrogen 25 mg/dL (7-18) H Creatinine 2.2 MG/DL (0.55-1.30) H Estimat Glomerular Filtration Rate 37.1 mL/min (>60) Glucose Level 135 MG/DL (74-106) H Calcium Level 8.5 MG/DL (8.5-10.1) Phosphorus Level 3.0 MG/DL (2.5-4.9) Magnesium Level 2.3 MG/DL (1.8-2.4) Total Bilirubin 0.3 MG/DL (0.2-1.0) Aspartate Amino Transf (AST/SGOT) 15 U/L (15-37) Alanine Aminotransferase (ALT/SGPT) 20 U/L (12-78) Alkaline Phosphatase 81 U/L (46-116) C-Reactive Protein, Quantitative 4.0 mg/dL (0.00-0.90) H Total Protein 6.3 G/DL (6.4-8.2) L Albumin 2.8 G/DL (3.4-5.0) L Globulin 3.5 g/dL Albumin/Globulin Ratio 0.8 (1.0-2.7) L Current Medications Medications (Trade) Dose Ordered Sig/Mamie Route PRN Reason Start Time Stop Time Status Last Admin Dose Admin Acetaminophen/ Codeine Phosphate (Tylenol #3) 1 tab Q4H PRN ORAL For Pain Level <=5 02/26/20 11:30 03/04/20 11:29 02/26/20 12:07 Bupropion HCl (Wellbutrin XL) 150 mg DAILY ORAL 02/24/20 09:00 03/25/20 08:59 02/26/20 08:57 Docusate Sodium (Colace) 100 mg TID ORAL 02/25/20 13:00 03/25/20 08:59 02/26/20 08:57 Dolutegravir Sodium (Tivicay) 50 mg DAILY ORAL 02/26/20 09:00 05/26/20 08:59 02/26/20 08:58 Folic Acid (Folate) 1 mg DAILY ORAL 02/25/20 11:30 03/26/20 11:29 02/26/20 08:59 Hydralazine HCl (Apresoline) 25 mg Q4H PRN ORAL Blood pressure over 160 systol 02/24/20 12:45 05/24/20 12:44 Metoprolol Tartrate (Lopressor) 12.5 mg Q12HR ORAL 02/26/20 21:00 05/26/20 20:59 Patient Own Medication (Patient's Own Med) 1 ea DAILY ORAL 02/26/20 09:00 03/27/20 08:59 02/26/20 08:58 Potassium Chloride (K-Dur) 40 meq BID ORAL 02/25/20 09:30 05/24/20 09:29 02/26/20 09:00 Tamsulosin HCl (Flomax) 0.4 mg BID ORAL 02/26/20 10:30 03/27/20 10:29 02/26/20 11:11 Trazodone HCl (Desyrel) 50 mg BEDTIME ORAL 02/24/20 21:00 03/25/20 20:59 02/25/20 21:02 Mitzi Reeves M.D. February 26, 2020 14:09
--- NOTE | 2020-02-26 14:32 | NUR ---
CASE MANAGEMENT:REVIEW 02/26/20 SI: HYPOKALEMIA. ASTHMA. HTN. HIV COVID NEGATIVE.. 97.5 80 20 132/95 95% ON 2L/NC H/H-12.2/35.5 PLT-149 K-3.1 BUN+25 CR+2.2 IS: IV KCL Q1HRS X3 BAGS NS BOLUS 200CC X1 K-DUR PO BID NORVASC PO QD WELLBUTRIN PO QD COLACE PO BID HAART REGIMEN : TELEMETRY STATUS DCP: FROM HOME PLAN: COVID 19 SWAB REPEATED
[2020-02-26 15:55] VITALS: BP 133/78
--- NOTE | 2020-02-26 16:15 | NUR ---
DISCHARGE PLANNING PATIENT IS FROM HOME FIRST COVID NOT DETECTED SECOND COVID RESULTS PENDING AT THIS TIME
--- NOTE | 2020-02-26 16:30 | Diagnostic Imaging Report ---
EXAM: ULTRASOUND US Renal Comp CLINICAL HISTORY: Flank pain.. COMPARISON: None TECHNIQUE: Ultrasound examination of the kidneys includes grayscale images, and color and spectral doppler analysis. FINDINGS: The right kidney measures 10.8 x 5.2 x 4.7 cm and the left kidney measures 11 x 5.1 x 4.3 cm. Mild cortical thinning noted bilaterally. There are bilateral renal cysts. There is a small shadowing stone in the left kidney. No hydronephrosis is noted. Urinary bladder appears unremarkable. IMPRESSION: LEFT RENAL STONE. NO HYDRONEPHROSIS. BILATERAL CORTICAL THINNING WITH SMALL RENAL CYSTS.
--- NOTE | 2020-02-26 16:30 | Diagnostic Imaging Report ---
EXAM: ULTRASOUND Venous Duplex Scan Maximino Leg CLINICAL HISTORY: Leg pain and edema. COMPARISON: None TECHNIQUE: Doppler examination include grayscale images obtained with and without compression, and color and spectral doppler analysis. FINDINGS: Doppler examination shows normal spontaneity, phasicity, compressibility in the bilateral lower extremities. There is no thrombus identified by grayscale. Normal color and spectral flow is identified. There is no evidence of valvular incompetency or insufficiency. IMPRESSION: UNREMARKABLE VENOUS DUPLEX.
--- NOTE | 2020-02-26 16:30 | Diagnostic Imaging Report ---
Procedure: XRAY Chest 1v Reason for study: Reason For Exam: SOB Comparison films: 10/10/2016. FINDINGS: A single one view chest is obtained. Vascularity is normal. The lung walsh are clear bilaterally. Cardiac and mediastinal silhouette are within normal limits. CP angles are sharp. The bony thorax appear unremarkable. IMPRESSION: NO ACUTE CARDIOPULMONARY DISEASE.
--- NOTE | 2020-02-26 16:30 | Diagnostic Imaging Report ---
Procedure: XRAY Chest 1v Reason for study: Reason For Exam: COUGH Comparison films: 02/23/2020. FINDINGS: A single one view chest is obtained. Vascularity is normal. The lung walsh are clear bilaterally. Cardiac and mediastinal silhouette are within normal limits. CP angles are sharp. The bony thorax appear unremarkable. IMPRESSION: NO ACUTE CARDIOPULMONARY DISEASE.
--- NOTE | 2020-02-26 19:24 | NUR ---
HAND-OFF: Report given to PILI Rodriguez.
[2020-02-26 20:00] VITALS: BP 130/89
--- NOTE | 2020-02-26 20:00 | NUR ---
NURSE NOTES: Pt is A/Ox4. Pt rhythm is SR w/BBB. IV site intact, asymptomatic, and patent. Bed is in the lowest position and locked. Call light and bedside table is within reach. No signs/symptoms of acute distress noted at this time. Will continue plan of care.
[2020-02-27] VITALS: BP 133/62
[2020-02-27] MEDS: Metoprolol Tartrate 12.5mg TAB ORAL SCH ×3 (00:01→23:06)
[2020-02-27] MEDS: Tylenol #3 tab (300mg/30mg) ORAL PRN ×2 (00:04→23:07)
[2020-02-27 04:00] VITALS: BP 136/70
[2020-02-27 07:35] LABS: BASOPHILS % (AUTO) 1.5 % (0.0-2.0); EOSINOPHILS % (AUTO) 6.2 % (0.0-3.0); HEMATOCRIT 38.3 % (42.0-52.0); HEMOGLOBIN 13.1 G/DL (14.2-18.0); LYMPHOCYTES % (AUTO) 24.8 % (20.0-45.0); MEAN CORPUSCULAR VOLUME 79 FL (80-99); MONOCYTES % (AUTO) 8.8 % (1.0-10.0); NEUTROPHILS % (AUTO) 58.7 % (45.0-75.0); PLATELET COUNT 167 K/UL (150-450); RED BLOOD COUNT 4.88 M/UL (4.70-6.10); RED CELL DISTRIBUTION WIDTH 12.7 % (11.6-14.8); WHITE BLOOD COUNT 7.1 K/UL (4.8-10.8)
--- NOTE | 2020-02-27 07:45 | NUR ---
NURSE NOTES: Received report from PILI Mathis. Pt A/O x4, denies any pain, no s/sx of acute distress, breathing even and unlabored in 2L NC. Pt is ambulatory with steady gait. IV site on R AC 20g patent and asymptomatic. Bed on lowest position, call light within reach. Will continue plan of care.
[2020-02-27 07:51] LABS: ANION GAP 9 mmol/L (5-15); BLOOD UREA NITROGEN 24 mg/dL (7-18); CALCIUM 8.4 MG/DL (8.5-10.1); CARBON DIOXIDE 28 MMOL/L (21-32); CHLORIDE 107 MMOL/L (98-107); CREATININE 2.1 MG/DL (0.55-1.30); POTASSIUM 3.6 MMOL/L (3.5-5.1); SODIUM 144 MMOL/L (136-145)
[2020-02-27 08:00] VITALS: BP 148/93
--- NOTE | 2020-02-27 08:11 | NUR ---
HAND-OFF: Report given to PILI Avalos
--- NOTE | 2020-02-27 08:22 | NUR ---
NURSE NOTES: Informed Dr Reeves about the negative covid-19 result of the pt. Pt is now negative X2. Also informed her about the result of urine culture. Awaiting for new orders. Addendum: 02/27/20 at 1118 by Diana Redding RN Made a follow up call to Dr Reeves's office. Awaiting for a callback.
[2020-02-27] MEDS: Docusate 100mg cap ORAL SCH ×3 (09:06→17:25)
[2020-02-27] MEDS: Tamsulosin 0.4mg cap ORAL SCH ×2 (09:06→17:26)
[2020-02-27] MEDS: BuPROPion XL 150mg tab ORAL SCH (09:06)
[2020-02-27] MEDS: EDURANT 25 MG ORAL SCH (09:06)
[2020-02-27] MEDS: Dolutegravir Sodium 50mg tab ORAL SCH (09:07)
--- NOTE | 2020-02-27 09:50 | General Progress Note ---
Assessment/Plan Problem List: (1) SOB (shortness of breath) ICD Codes: R06.02 - Shortness of breath SNOMED: 693086132 (2) Suspected COVID-19 virus infection ICD Codes: Z20.828 - Contact with and (suspected) exposure to other viral communicable diseases SNOMED: 944468985 (3) Hypokalemia ICD Codes: E87.6 - Hypokalemia SNOMED: 11215984 (4) Chest pain ICD Codes: R07.9 - Chest pain, unspecified SNOMED: 67090604 Qualifiers: Qualified Codes: R07.9 - Chest pain, unspecified (5) LEE (acute kidney injury) ICD Codes: N17.9 - Acute kidney failure, unspecified SNOMED: 69883477, 9631520 (6) HTN (hypertension) ICD Codes: I10 - Essential (primary) hypertension SNOMED: 26264259 Status: stable, progressing Assessment/Plan: o2 pulm tx abx pt diet cardio f/u cbc bmp am Subjective Constitutional: Reports: weakness Allergies: Coded Allergies: No Known Allergies (Unverified , 10/10/16) All Systems: reviewed and negative except above Subjective sleepy calm Objective Last 24 Hour Vital Signs Date Time Temp Pulse Resp B/P (MAP) Pulse Ox O2 Delivery O2 Flow Rate FiO2 02/27/20 09:06 79 148/93 02/27/20 08:00 97.2 79 19 148/93 (111) 97 02/27/20 04:00 81 02/27/20 04:00 98.0 99 16 136/70 (92) 97 02/27/20 00:01 80 133/69 02/27/20 00:00 93 02/27/20 00:00 97.7 96 16 133/62 (85) 96 02/26/20 21:00 Nasal Cannula 2.0 02/26/20 20:00 97.0 86 18 130/89 (103) 98 02/26/20 16:00 85 02/26/20 15:55 97.5 85 20 133/78 (96) 95 02/26/20 12:00 97.5 80 20 132/95 (107) 95 02/26/20 12:00 92 02/26/20 11:15 89 137/93 Intake and Output 02/26/20 02/27/20 19:00 07:00 Intake Total 500 ml Output Total 700 ml Balance -200 ml Intake Oral 500 ml Output Urine Total 700 ml # Voids 4 1 # Bowel Movements 2 1 Laboratory Tests 02/27/20 07:15: White Blood Count 7.1, Red Blood Count 4.88, Hemoglobin 13.1L, Hematocrit 38.3L , Mean Corpuscular Volume 79L, Mean Corpuscular Hemoglobin 26.8L, Mean Corpuscular Hemoglobin Concent 34.1, Red Cell Distribution Width 12.7, Platelet Count 167, Mean Platelet Volume 6.1L, Neutrophils (%) (Auto) 58.7, Lymphocytes ( %) (Auto) 24.8, Monocytes (%) (Auto) 8.8, Eosinophils (%) (Auto) 6.2H, Basophils (%) (Auto) 1.5, Sodium Level 144, Potassium Level 3.6, Chloride Level 107, Carbon Dioxide Level 28, Anion Gap 9, Blood Urea Nitrogen 24H, Creatinine 2.1H, Estimat Glomerular Filtration Rate 39.1, Glucose Level 132H, Calcium Level 8.4L Height (Feet): 5 Height (Inches): 11.00 Weight (Pounds): 244 General Appearance: lethargic EENT: normal ENT inspection Neck: normal alignment Cardiovascular: normal rate, regular rhythm Respiratory/Chest: no respiratory distress, no accessory muscle use Extremities: normal inspection Skin: normal pigmentation Zeyad Holt DO February 27, 2020 09:50
--- NOTE | 2020-02-27 10:07 | Infectious Diseases Prog Note ---
Assessment/Plan Assessment/Plan Assessment: Afebrile MIld leukocytosis/lymphopenia- SP -u/a neg Chest pain/Dyspnea- on 2l nC- ?etiology- r/o PE, ?diastolic CHF vs pulmonary edema given renal failure (CXR is normal, waiting for repeat CXR), r/o COVID ( will order 2nd test) -02/24 CXR: NO ACUTE CARDIOPULMONARY DISEASE. -02/22 CXR: no acute disease SARS-COV2 PCR neg x2 trops neg x3 EKG no ischemic changes R ankle pain- no evidence of cellulitis, mild swelling- -R ankle xray: No displaced fracture or dislocation identified. -v. duplex: UNREMARKABLE VENOUS DUPLEX. Hypokalemia LEE vs CKD -Renal US: LEFT RENAL STONE. NO HYDRONEPHROSIS.BILATERAL CORTICAL THINNING WITH SMALL RENAL CYSTS. HIV- dx'ed 25 yrs ago- on treatment, currently on Juluca (previously on Atripla ) -per pt HIV VL UD and CD4 800s (last lab Oct 2019) HTN diverticulitis asthma Obesity Plan: -Monitor off abx -f/u cx -Monitor CBC/CMP, temperatures -f/u CT chest wo -Continue HAART: Dolutegravir 50mg/Rilpivirine 25mg once daily -Neprho, Pulm f/u Thank you for consulting [facility]. Will contiue to follow along with you. Discussed with RN. Subjective Allergies: Coded Allergies: No Known Allergies (Unverified , 10/10/16) Subjective Afebrile Satting well No Leukoctyosis Objective Vital Signs Last 24 Hour Vital Signs Date Time Temp Pulse Resp B/P (MAP) Pulse Ox O2 Delivery O2 Flow Rate FiO2 02/27/20 09:06 79 148/93 02/27/20 08:00 97.2 79 19 148/93 (111) 97 02/27/20 04:00 81 02/27/20 04:00 98.0 99 16 136/70 (92) 97 02/27/20 00:01 80 133/69 02/27/20 00:00 93 02/27/20 00:00 97.7 96 16 133/62 (85) 96 02/26/20 21:00 Nasal Cannula 2.0 02/26/20 20:00 97.0 86 18 130/89 (103) 98 5/15/20 16:00 85 02/26/20 15:55 97.5 85 20 133/78 (96) 95 02/26/20 12:00 97.5 80 20 132/95 (107) 95 02/26/20 12:00 92 02/26/20 11:15 89 137/93 Height (Feet): 5 Height (Inches): 11.00 Weight (Pounds): 244 Objective GENERAL: Lethargic, sleepy in bed. HEENT: Normocephalic, atraumatic., MMM CARDIOVASCULAR: No peripheral edema. Pulses 2+ PULMONARY: Breathing comfortably on 2L NC ABDOMEN: Soft, NT, ND Microbiology Date/Time Source Procedure Growth Status 02/25/20 18:00 Nasopharynx Coronavirus COVID-19 PCR ([facility]) - Final Complete 02/25/20 18:00 Urine,Clean Catch Urine Culture - Preliminary Strep Species, Gamma-Hemolytic Mixed Urogenital Contaminants Resulted Laboratory Tests Test 02/27/20 07:15 White Blood Count 7.1 K/UL (4.8-10.8) Red Blood Count 4.88 M/UL (4.70-6.10) Hemoglobin 13.1 G/DL (14.2-18.0) L Hematocrit 38.3 % (42.0-52.0) L Mean Corpuscular Volume 79 FL (80-99) L Mean Corpuscular Hemoglobin 26.8 PG (27.0-31.0) L Mean Corpuscular Hemoglobin Concent 34.1 G/DL (32.0-36.0) Red Cell Distribution Width 12.7 % (11.6-14.8) Platelet Count 167 K/UL (150-450) Mean Platelet Volume 6.1 FL (6.5-10.1) L Neutrophils (%) (Auto) 58.7 % (45.0-75.0) Lymphocytes (%) (Auto) 24.8 % (20.0-45.0) Monocytes (%) (Auto) 8.8 % (1.0-10.0) Eosinophils (%) (Auto) 6.2 % (0.0-3.0) H Basophils (%) (Auto) 1.5 % (0.0-2.0) Sodium Level 144 MMOL/L (136-145) Potassium Level 3.6 MMOL/L (3.5-5.1) Chloride Level 107 MMOL/L (98-107) Carbon Dioxide Level 28 MMOL/L (21-32) Anion Gap 9 mmol/L (5-15) Blood Urea Nitrogen 24 mg/dL (7-18) H Creatinine 2.1 MG/DL (0.55-1.30) H Estimat Glomerular Filtration Rate 39.1 mL/min (>60) Glucose Level 132 MG/DL (74-106) H Calcium Level 8.4 MG/DL (8.5-10.1) L Current Medications Medications (Trade) Dose Ordered Sig/Mamie Route PRN Reason Start Time Stop Time Status Last Admin Dose Admin Acetaminophen/ Codeine Phosphate (Tylenol #3) 1 tab Q4H PRN ORAL For Pain Level <=5 02/26/20 11:30 03/04/20 11:29 02/27/20 00:04 Bupropion HCl (Wellbutrin XL) 150 mg DAILY ORAL 02/24/20 09:00 03/25/20 08:59 02/27/20 09:06 Docusate Sodium (Colace) 100 mg TID ORAL 02/25/20 13:00 03/25/20 08:59 02/27/20 09:06 Dolutegravir Sodium (Tivicay) 50 mg DAILY ORAL 02/26/20 09:00 05/26/20 08:59 02/27/20 09:07 Folic Acid (Folate) 1 mg DAILY ORAL 02/25/20 11:30 03/26/20 11:29 02/27/20 09:06 Hydralazine HCl (Apresoline) 25 mg Q4H PRN ORAL Blood pressure over 160 systol 02/24/20 12:45 05/24/20 12:44 Metoprolol Tartrate (Lopressor) 12.5 mg Q12HR ORAL 02/26/20 21:00 05/26/20 20:59 02/27/20 09:06 Patient Own Medication (Patient's Own Med) 1 ea DAILY ORAL 02/26/20 09:00 03/27/20 08:59 02/27/20 09:06 Potassium Chloride (K-Dur) 40 meq DAILY ORAL 02/27/20 09:00 05/24/20 09:29 02/27/20 09:07 Tamsulosin HCl (Flomax) 0.4 mg BID ORAL 02/26/20 10:30 03/27/20 10:29 02/27/20 09:06 Trazodone HCl (Desyrel) 50 mg BEDTIME ORAL 02/24/20 21:00 03/25/20 20:59 02/27/20 00:00 Ramon Andersen MD February 27, 2020 10:07
--- NOTE | 2020-02-27 11:30 | NUR ---
NURSE NOTES: Received a call from Dr Andersen. ordered to DC isolation. Informed MD about the urine culture result.
[2020-02-27 12:00] VITALS: BP 133/84
--- NOTE | 2020-02-27 12:03 | Pulmonology Progress Note ---
Subjective ROS Limited/Unobtainable: No Interval Events: None new Constitutional: Reports: no symptoms HEENT: Repors: no symptoms Respiratory: Reports: no symptoms Cardiovascular: Reports: no symptoms Gastrointestinal/Abdominal: Reports: no symptoms Allergies: Coded Allergies: No Known Allergies (Unverified , 10/10/16) All Systems: reviewed and negative except above Objective Last 24 Hour Vital Signs Date Time Temp Pulse Resp B/P (MAP) Pulse Ox O2 Delivery O2 Flow Rate FiO2 02/27/20 09:06 79 148/93 02/27/20 09:00 Nasal Cannula 2.0 02/27/20 08:00 97.2 79 19 148/93 (111) 97 02/27/20 07:53 85 02/27/20 04:00 81 02/27/20 04:00 98.0 99 16 136/70 (92) 97 02/27/20 00:01 80 133/69 02/27/20 00:00 93 02/27/20 00:00 97.7 96 16 133/62 (85) 96 02/26/20 21:00 Nasal Cannula 2.0 02/26/20 20:00 97.0 86 18 130/89 (103) 98 02/26/20 16:00 85 02/26/20 15:55 97.5 85 20 133/78 (96) 95 Intake and Output 02/26/20 02/27/20 19:00 07:00 Intake Total 500 ml Output Total 700 ml Balance -200 ml Intake Oral 500 ml Output Urine Total 700 ml # Voids 4 1 # Bowel Movements 2 1 General Appearance: no acute distress HEENT: normocephalic Respiratory: chest wall non-tender Cardiovascular: normal peripheral pulses Abdomen: normal bowel sounds Extremities: no cyanosis Microbiology Date/Time Source Procedure Growth Status 02/25/20 18:00 Nasopharynx Coronavirus COVID-19 PCR ([facility]) - Final Complete 02/25/20 18:00 Urine,Clean Catch Urine Culture - Preliminary Strep Species, Gamma-Hemolytic Mixed Urogenital Contaminants Resulted Laboratory Tests 02/27/20 07:15: White Blood Count 7.1, Red Blood Count 4.88, Hemoglobin 13.1L, Hematocrit 38.3L , Mean Corpuscular Volume 79L, Mean Corpuscular Hemoglobin 26.8L, Mean Corpuscular Hemoglobin Concent 34.1, Red Cell Distribution Width 12.7, Platelet Count 167, Mean Platelet Volume 6.1L, Neutrophils (%) (Auto) 58.7, Lymphocytes ( %) (Auto) 24.8, Monocytes (%) (Auto) 8.8, Eosinophils (%) (Auto) 6.2H, Basophils (%) (Auto) 1.5, Sodium Level 144, Potassium Level 3.6, Chloride Level 107, Carbon Dioxide Level 28, Anion Gap 9, Blood Urea Nitrogen 24H, Creatinine 2.1H, Estimat Glomerular Filtration Rate 39.1, Glucose Level 132H, Calcium Level 8.4L Current Medications Medications (Trade) Dose Ordered Sig/Mamie Route PRN Reason Start Time Stop Time Status Last Admin Dose Admin Acetaminophen/ Codeine Phosphate (Tylenol #3) 1 tab Q4H PRN ORAL For Pain Level <=5 02/26/20 11:30 03/04/20 11:29 02/27/20 00:04 Bupropion HCl (Wellbutrin XL) 150 mg DAILY ORAL 02/24/20 09:00 03/25/20 08:59 02/27/20 09:06 Docusate Sodium (Colace) 100 mg TID ORAL 02/25/20 13:00 03/25/20 08:59 02/27/20 09:06 Dolutegravir Sodium (Tivicay) 50 mg DAILY ORAL 02/26/20 09:00 05/26/20 08:59 02/27/20 09:07 Folic Acid (Folate) 1 mg DAILY ORAL 02/25/20 11:30 03/26/20 11:29 02/27/20 09:06 Hydralazine HCl (Apresoline) 25 mg Q4H PRN ORAL Blood pressure over 160 systol 02/24/20 12:45 05/24/20 12:44 Metoprolol Tartrate (Lopressor) 12.5 mg Q12HR ORAL 02/26/20 21:00 05/26/20 20:59 02/27/20 09:06 Patient Own Medication (Patient's Own Med) 1 ea DAILY ORAL 02/26/20 09:00 03/27/20 08:59 02/27/20 09:06 Potassium Chloride (K-Dur) 40 meq DAILY ORAL 02/27/20 09:00 05/24/20 09:29 02/27/20 09:07 Tamsulosin HCl (Flomax) 0.4 mg BID ORAL 02/26/20 10:30 03/27/20 10:29 02/27/20 09:06 Trazodone HCl (Desyrel) 50 mg BEDTIME ORAL 02/24/20 21:00 03/25/20 20:59 02/27/20 00:00 Assessment/Plan Assessment/Plan IMPRESSION: 1. Asthma, stable. 2. Status post fall. 3. HIV positivity. 4. Hypertension. DISCUSSION: Continue current medications, Potassium replaced; now 3.6 Asthma stable Will continue Tylenol #4; I will follow. OK to dc home Sakshi Beth Omar Syed MD February 27, 2020 12:03
--- NOTE | 2020-02-27 12:24 | Cardiac Electrophysiology PN ---
Assessment/Plan Assessment/Plan 1. Chest pain. Ruled out for myocardial infarction with serial cardiac enzymes. The EKG no acute ischemic changes. EKG. Echo EF 60% Will reschedule Stress test Saturday now that is ruled out for COVID 2. Profound hypokalemia with potassium 2.3. Corrected by Dr. Holbrook. 3. Hypertension. Continue amlodipine 5 mg daily and hydralazine p.r.n. 4. Shortness of breath. Is being ruled out for COVID. Currently off antibiotic. 5. HIV. 6. History of diverticulitis. DW Dr Holbrook Subjective Subjective Off isolation an both Covids are negative. No CP Objective Last 24 Hour Vital Signs Date Time Temp Pulse Resp B/P (MAP) Pulse Ox O2 Delivery O2 Flow Rate FiO2 02/27/20 09:06 79 148/93 02/27/20 09:00 Nasal Cannula 2.0 02/27/20 08:00 97.2 79 19 148/93 (111) 97 02/27/20 07:53 85 02/27/20 04:00 81 02/27/20 04:00 98.0 99 16 136/70 (92) 97 02/27/20 00:01 80 133/69 02/27/20 00:00 93 02/27/20 00:00 97.7 96 16 133/62 (85) 96 02/26/20 21:00 Nasal Cannula 2.0 02/26/20 20:00 97.0 86 18 130/89 (103) 98 02/26/20 16:00 85 02/26/20 15:55 97.5 85 20 133/78 (96) 95 Intake and Output 02/26/20 02/27/20 19:00 07:00 Intake Total 500 ml Output Total 700 ml Balance -200 ml Intake Oral 500 ml Output Urine Total 700 ml # Voids 4 1 # Bowel Movements 2 1 Laboratory Tests Test 02/27/20 07:15 White Blood Count 7.1 K/UL (4.8-10.8) Red Blood Count 4.88 M/UL (4.70-6.10) Hemoglobin 13.1 G/DL (14.2-18.0) L Hematocrit 38.3 % (42.0-52.0) L Mean Corpuscular Volume 79 FL (80-99) L Mean Corpuscular Hemoglobin 26.8 PG (27.0-31.0) L Mean Corpuscular Hemoglobin Concent 34.1 G/DL (32.0-36.0) Red Cell Distribution Width 12.7 % (11.6-14.8) Platelet Count 167 K/UL (150-450) Mean Platelet Volume 6.1 FL (6.5-10.1) L Neutrophils (%) (Auto) 58.7 % (45.0-75.0) Lymphocytes (%) (Auto) 24.8 % (20.0-45.0) Monocytes (%) (Auto) 8.8 % (1.0-10.0) Eosinophils (%) (Auto) 6.2 % (0.0-3.0) H Basophils (%) (Auto) 1.5 % (0.0-2.0) Sodium Level 144 MMOL/L (136-145) Potassium Level 3.6 MMOL/L (3.5-5.1) Chloride Level 107 MMOL/L (98-107) Carbon Dioxide Level 28 MMOL/L (21-32) Anion Gap 9 mmol/L (5-15) Blood Urea Nitrogen 24 mg/dL (7-18) H Creatinine 2.1 MG/DL (0.55-1.30) H Estimat Glomerular Filtration Rate 39.1 mL/min (>60) Glucose Level 132 MG/DL (74-106) H Calcium Level 8.4 MG/DL (8.5-10.1) L Microbiology Date/Time Source Procedure Growth Status 02/25/20 18:00 Nasopharynx Coronavirus COVID-19 PCR ([facility]) - Final Complete 02/25/20 18:00 Urine,Clean Catch Urine Culture - Preliminary Strep Species, Gamma-Hemolytic Mixed Urogenital Contaminants Resulted Objective HEAD AND NECK: No JVD. LUNGS: Clear. CARDIOVASCULAR: Regular S1 and S2 with no murmur. ABDOMEN: Soft, obese. EXTREMITIES: No pitting edema. Thony Augustine MD February 27, 2020 12:24
[2020-02-27] MEDS ORDERED: Lexiscan 0.4mg/5ml syringe IV PRN (12:27)
--- NOTE | 2020-02-27 12:30 | Nephrology Progress Note ---
Assessment/Plan Problem List: (1) LEE (acute kidney injury) (2) Hypokalemia (3) HTN (hypertension) (4) HIV disease (5) DMII (diabetes mellitus, type 2) Assessment Renal failure appears to be chronic, may have superimposed acute component Hypo-kalemia History of hypertension History of HIV disease History of diverticulitis Proteinuria with 1+ leukocyte Estrace Plan Serum creatinine remains stable Patient denies any diarrhea and under control he complains of constipation Serum potassium improved Will continue oral magnesium Start Flomax Change diet to medium carbohydrates Switch to Lopressor from [employer] Previously: Stop Dyazide, stop Lotensin Potassium supplement p.o. and IV Adjust blood pressure medication Avoid nephrotoxic's Urine studies, urine culture Kidney ultrasound pending results Monitor renal parameters Per orders Subjective ROS Limited/Unobtainable: No Constitutional: Reports: malaise Objective Objective Last 24 Hour Vital Signs Date Time Temp Pulse Resp B/P (MAP) Pulse Ox O2 Delivery O2 Flow Rate FiO2 02/27/20 09:06 79 148/93 02/27/20 09:00 Nasal Cannula 2.0 02/27/20 08:00 97.2 79 19 148/93 (111) 97 02/27/20 07:53 85 02/27/20 04:00 81 02/27/20 04:00 98.0 99 16 136/70 (92) 97 02/27/20 00:01 80 133/69 02/27/20 00:00 93 02/27/20 00:00 97.7 96 16 133/62 (85) 96 02/26/20 21:00 Nasal Cannula 2.0 02/26/20 20:00 97.0 86 18 130/89 (103) 98 02/26/20 16:00 85 02/26/20 15:55 97.5 85 20 133/78 (96) 95 Intake and Output 02/26/20 02/27/20 19:00 07:00 Intake Total 500 ml Output Total 700 ml Balance -200 ml Intake Oral 500 ml Output Urine Total 700 ml # Voids 4 1 # Bowel Movements 2 1 Laboratory Tests 02/27/20 07:15: White Blood Count 7.1, Red Blood Count 4.88, Hemoglobin 13.1L, Hematocrit 38.3L , Mean Corpuscular Volume 79L, Mean Corpuscular Hemoglobin 26.8L, Mean Corpuscular Hemoglobin Concent 34.1, Red Cell Distribution Width 12.7, Platelet Count 167, Mean Platelet Volume 6.1L, Neutrophils (%) (Auto) 58.7, Lymphocytes ( %) (Auto) 24.8, Monocytes (%) (Auto) 8.8, Eosinophils (%) (Auto) 6.2H, Basophils (%) (Auto) 1.5, Sodium Level 144, Potassium Level 3.6, Chloride Level 107, Carbon Dioxide Level 28, Anion Gap 9, Blood Urea Nitrogen 24H, Creatinine 2.1H, Estimat Glomerular Filtration Rate 39.1, Glucose Level 132H, Calcium Level 8.4L Height (Feet): 5 Height (Inches): 11.00 Weight (Pounds): 244 General Appearance: no apparent distress Cardiovascular: normal rate Respiratory/Chest: decreased breath sounds Abdomen: soft Objective No change Tawanda Holbrook MD February 27, 2020 12:30
[2020-02-27 16:00] VITALS: BP 137/93
--- NOTE | 2020-02-27 19:29 | NUR ---
HAND-OFF: Report given to PILI Mathis. Pt in stable condition, endorsed plan of care.
[2020-02-27 20:00] VITALS: BP 128/79
[2020-02-27] MEDS: TraZODone 50mg tab ORAL SCH ×2 (23:02)
[2020-02-28] VITALS: BP 130/80
[2020-02-28 08:00] VITALS: BP 134/92
--- NOTE | 2020-02-28 08:16 | NUR ---
NURSE NOTES: Received report from PILI Mathis. Pt A/O x4, denies any pain, no s/sx of acute distress. Pt on 2L NC, breathing even and unlabored. IV site patent and asymptomatic. Pt is ambulatory with steady gait. Bed on lowest position, call light within reach. Will continue plan of care.
--- NOTE | 2020-02-28 08:20 | NUR ---
HAND-OFF: Report given to Bailey ALEJANDRE. Pt in stable condition, endorsed plan of care.
[2020-02-28] MEDS: Metoprolol Tartrate 12.5mg TAB ORAL SCH ×2 (08:33→20:23)
[2020-02-28] MEDS: BuPROPion XL 150mg tab ORAL SCH (08:33)
[2020-02-28] MEDS: Dolutegravir Sodium 50mg tab ORAL SCH (08:34)
[2020-02-28] MEDS: Docusate 100mg cap ORAL SCH ×3 (08:34→17:26)
[2020-02-28] MEDS: Tamsulosin 0.4mg cap ORAL SCH ×2 (08:34→17:26)
[2020-02-28] MEDS: EDURANT 25 MG ORAL SCH (08:34)
--- NOTE | 2020-02-28 08:38 | Pulmonology Progress Note ---
Subjective ROS Limited/Unobtainable: No Interval Events: None new Constitutional: Reports: no symptoms HEENT: Repors: no symptoms Respiratory: Reports: no symptoms Cardiovascular: Reports: no symptoms Gastrointestinal/Abdominal: Reports: no symptoms Allergies: Coded Allergies: No Known Allergies (Unverified , 10/10/16) All Systems: reviewed and negative except above Objective Last 24 Hour Vital Signs Date Time Temp Pulse Resp B/P (MAP) Pulse Ox O2 Delivery O2 Flow Rate FiO2 02/28/20 08:00 97.7 78 18 134/92 (106) 96 02/28/20 00:00 98.0 81 21 130/80 (97) 96 02/28/20 00:00 91 02/27/20 23:06 84 128/79 02/27/20 21:00 Nasal Cannula 2.0 02/27/20 20:00 98.0 84 22 128/79 (95) 97 02/27/20 16:00 97.7 89 20 137/93 (108) 97 02/27/20 15:59 20 02/27/20 12:44 76 02/27/20 12:00 97.3 79 18 133/84 (100) 95 02/27/20 09:06 79 148/93 02/27/20 09:00 Nasal Cannula 2.0 Intake and Output 02/27/20 02/28/20 19:00 07:00 Intake Total 354 ml Balance 354 ml Intake Oral 354 ml # Bowel Movements 1 General Appearance: no acute distress HEENT: normocephalic Respiratory: chest wall non-tender Cardiovascular: normal peripheral pulses Abdomen: normal bowel sounds Extremities: no cyanosis Microbiology Date/Time Source Procedure Growth Status 02/25/20 18:00 Nasopharynx Coronavirus COVID-19 PCR ([facility]) - Final Complete 02/25/20 18:00 Urine,Clean Catch Urine Culture - Final Enterococcus Faecalis Mixed Urogenital Contaminants Complete Current Medications Medications (Trade) Dose Ordered Sig/Mamie Route PRN Reason Start Time Stop Time Status Last Admin Dose Admin Acetaminophen/ Codeine Phosphate (Tylenol #3) 1 tab Q4H PRN ORAL For Pain Level <=5 02/26/20 11:30 03/04/20 11:29 02/27/20 23:07 Bupropion HCl (Wellbutrin XL) 150 mg DAILY ORAL 02/24/20 09:00 03/25/20 08:59 02/27/20 09:06 Docusate Sodium (Colace) 100 mg TID ORAL 02/25/20 13:00 03/25/20 08:59 02/27/20 17:25 Dolutegravir Sodium (Tivicay) 50 mg DAILY ORAL 02/26/20 09:00 05/26/20 08:59 02/27/20 09:07 Folic Acid (Folate) 1 mg DAILY ORAL 02/25/20 11:30 03/26/20 11:29 02/27/20 09:06 Hydralazine HCl (Apresoline) 25 mg Q4H PRN ORAL Blood pressure over 160 systol 02/24/20 12:45 05/24/20 12:44 Metoprolol Tartrate (Lopressor) 12.5 mg Q12HR ORAL 02/26/20 21:00 05/26/20 20:59 02/27/20 23:06 Patient Own Medication (Patient's Own Med) 1 ea DAILY ORAL 02/26/20 09:00 03/27/20 08:59 02/27/20 09:06 Potassium Chloride (K-Dur) 40 meq DAILY ORAL 02/27/20 09:00 05/24/20 09:29 02/27/20 09:07 Regadenoson (Lexiscan) 0.4 mg ONCE PRN IV CARDIOLOGY 02/27/20 12:27 03/01/20 23:59 Tamsulosin HCl (Flomax) 0.4 mg BID ORAL 02/26/20 10:30 03/27/20 10:29 02/27/20 17:26 Trazodone HCl (Desyrel) 50 mg BEDTIME ORAL 02/24/20 21:00 03/25/20 20:59 02/27/20 23:02 Assessment/Plan Assessment/Plan IMPRESSION: 1. Asthma, stable. 2. Status post fall. 3. HIV positivity. 4. Hypertension. DISCUSSION: Continue current medications, Potassium replaced; was3.6 yesterday Asthma stable Will continue Tylenol #4; I will follow. OK to dc home Carlton Sakshi Victoria Omar Syed MD February 28, 2020 08:38
[2020-02-28 09:19] LABS: ALANINE AMINOTRANSFERASE 16 U/L (12-78); ALBUMIN 2.8 G/DL (3.4-5.0); ALBUMIN/GLOBULIN RATIO 0.8 (1.0-2.7); ALKALINE PHOSPHATASE 84 U/L (46-116); ANION GAP 10 mmol/L (5-15); ASPARTATE AMINO TRANSFERASE 26 U/L (15-37); BILIRUBIN,TOTAL 0.3 MG/DL (0.2-1.0); BLOOD UREA NITROGEN 22 mg/dL (7-18); CALCIUM 8.5 MG/DL (8.5-10.1); CARBON DIOXIDE 25 MMOL/L (21-32); CHLORIDE 107 MMOL/L (98-107); PHOSPHORUS 3.2 MG/DL (2.5-4.9); POTASSIUM 4.1 MMOL/L (3.5-5.1); SODIUM 142 MMOL/L (136-145)
--- NOTE | 2020-02-28 09:55 | General Progress Note ---
Assessment/Plan Problem List: (1) SOB (shortness of breath) ICD Codes: R06.02 - Shortness of breath SNOMED: 332567521 (2) Suspected COVID-19 virus infection ICD Codes: Z20.828 - Contact with and (suspected) exposure to other viral communicable diseases SNOMED: 881086022 (3) Hypokalemia ICD Codes: E87.6 - Hypokalemia SNOMED: 96244359 (4) Chest pain ICD Codes: R07.9 - Chest pain, unspecified SNOMED: 39716288 Qualifiers: Qualified Codes: R07.9 - Chest pain, unspecified (5) LEE (acute kidney injury) ICD Codes: N17.9 - Acute kidney failure, unspecified SNOMED: 51321144, 1259300 (6) HTN (hypertension) ICD Codes: I10 - Essential (primary) hypertension SNOMED: 49197511 Status: stable, progressing Assessment/Plan: o2 pulm tx abx pt diet cardio f/u cbc bmp am Subjective Constitutional: Reports: weakness Allergies: Coded Allergies: No Known Allergies (Unverified , 10/10/16) All Systems: reviewed and negative except above Subjective sleepy calm Objective Last 24 Hour Vital Signs Date Time Temp Pulse Resp B/P (MAP) Pulse Ox O2 Delivery O2 Flow Rate FiO2 02/28/20 08:33 78 134/92 02/28/20 08:00 97.7 78 18 134/92 (106) 96 02/28/20 04:00 90 02/28/20 00:00 98.0 81 21 130/80 (97) 96 02/28/20 00:00 91 02/27/20 23:06 84 128/79 02/27/20 21:00 Nasal Cannula 2.0 02/27/20 20:00 86 02/27/20 20:00 98.0 84 22 128/79 (95) 97 02/27/20 16:00 97.7 89 20 137/93 (108) 97 02/27/20 15:59 20 02/27/20 12:44 76 02/27/20 12:00 97.3 79 18 133/84 (100) 95 Intake and Output 02/27/20 02/28/20 19:00 07:00 Intake Total 354 ml Balance 354 ml Intake Oral 354 ml # Bowel Movements 1 Laboratory Tests 02/28/20 05:00: Sodium Level 142, Potassium Level 4.1, Chloride Level 107, Carbon Dioxide Level 25, Anion Gap 10, Blood Urea Nitrogen 22H, Creatinine 2.0H, Estimat Glomerular Filtration Rate 41.3, Glucose Level 98, Calcium Level 8.5, Phosphorus Level 3.2 , Total Bilirubin 0.3, Aspartate Amino Transf (AST/SGOT) 26, Alanine Aminotransferase (ALT/SGPT) 16, Alkaline Phosphatase 84, Total Protein 6.4, Albumin 2.8L, Globulin 3.6, Albumin/Globulin Ratio 0.8L Height (Feet): 5 Height (Inches): 11.00 Weight (Pounds): 244 General Appearance: lethargic EENT: normal ENT inspection Neck: normal alignment Cardiovascular: normal rate, regular rhythm Respiratory/Chest: no respiratory distress, no accessory muscle use Extremities: normal inspection Skin: normal pigmentation Zeyad Holt February 28, 2020 09:55
--- NOTE | 2020-02-28 10:53 | Nephrology Progress Note ---
Assessment/Plan Problem List: (1) LEE (acute kidney injury) (2) Hypokalemia (3) HTN (hypertension) (4) HIV disease (5) DMII (diabetes mellitus, type 2) Assessment Renal failure appears to be chronic, may have superimposed acute component Serum creatinine down from 2.3 to 2 today Hypo-kalemia History of hypertension History of HIV disease History of diverticulitis Proteinuria with 1+ leukocyte Estrace Plan Serum potassium now within normal limit Serum creatinine remains stable Patient denies any diarrhea and under control he complains of constipation Serum potassium improved Will continue oral magnesium Start Flomax Change diet to medium carbohydrates Switch to Lopressor from [employer] Previously: Stop Dyazide, stop Lotensin Potassium supplement p.o. and IV Adjust blood pressure medication Avoid nephrotoxic's Urine studies, urine culture Kidney ultrasound pending results Monitor renal parameters Per orders IMPRESSION:Kidney ultrasound LEFT RENAL STONE. NO HYDRONEPHROSIS. BILATERAL CORTICAL THINNING WITH SMALL RENAL CYSTS. Subjective ROS Limited/Unobtainable: No Constitutional: Reports: malaise Objective Objective Last 24 Hour Vital Signs Date Time Temp Pulse Resp B/P (MAP) Pulse Ox O2 Delivery O2 Flow Rate FiO2 02/28/20 09:00 Nasal Cannula 2.0 02/28/20 08:33 78 134/92 02/28/20 08:00 97.7 78 18 134/92 (106) 96 02/28/20 07:57 83 02/28/20 04:00 90 02/28/20 00:00 98.0 81 21 130/80 (97) 96 02/28/20 00:00 91 02/27/20 23:06 84 128/79 02/27/20 21:00 Nasal Cannula 2.0 02/27/20 20:00 86 02/27/20 20:00 98.0 84 22 128/79 (95) 97 02/27/20 16:00 97.7 89 20 137/93 (108) 97 02/27/20 15:59 90 02/27/20 12:44 76 02/27/20 12:00 97.3 79 18 133/84 (100) 95 Intake and Output 02/27/20 02/28/20 19:00 07:00 Intake Total 354 ml Balance 354 ml Intake Oral 354 ml # Bowel Movements 1 Current Medications Medications (Trade) Dose Ordered Sig/Mamie Route PRN Reason Start Time Stop Time Status Last Admin Dose Admin Acetaminophen/ Codeine Phosphate (Tylenol #3) 1 tab Q4H PRN ORAL For Pain Level <=5 02/26/20 11:30 03/04/20 11:29 02/27/20 23:07 Bupropion HCl (Wellbutrin XL) 150 mg DAILY ORAL 02/24/20 09:00 03/25/20 08:59 02/28/20 08:33 Docusate Sodium (Colace) 100 mg TID ORAL 02/25/20 13:00 03/25/20 08:59 02/28/20 08:34 Dolutegravir Sodium (Tivicay) 50 mg DAILY ORAL 02/26/20 09:00 05/26/20 08:59 02/28/20 08:34 Folic Acid (Folate) 1 mg DAILY ORAL 02/25/20 11:30 03/26/20 11:29 02/28/20 08:33 Hydralazine HCl (Apresoline) 25 mg Q4H PRN ORAL Blood pressure over 160 systol 02/24/20 12:45 05/24/20 12:44 Magnesium Hydroxide (Mom) 30 ml DAILYPRN PRN ORAL Constipation 02/28/20 09:15 03/29/20 09:14 Metoprolol Tartrate (Lopressor) 12.5 mg Q12HR ORAL 02/26/20 21:00 05/26/20 20:59 02/28/20 08:33 Patient Own Medication (Patient's Own Med) 1 ea DAILY ORAL 02/26/20 09:00 03/27/20 08:59 02/28/20 08:34 Potassium Chloride (K-Dur) 40 meq DAILY ORAL 02/27/20 09:00 05/24/20 09:29 02/28/20 08:34 Regadenoson (Lexiscan) 0.4 mg ONCE PRN IV CARDIOLOGY 02/27/20 12:27 03/01/20 23:59 Tamsulosin HCl (Flomax) 0.4 mg BID ORAL 02/26/20 10:30 03/27/20 10:29 02/28/20 08:34 Trazodone HCl (Desyrel) 50 mg BEDTIME ORAL 02/24/20 21:00 03/25/20 20:59 02/27/20 23:02 Laboratory Tests 02/28/20 05:00: Sodium Level 142, Potassium Level 4.1, Chloride Level 107, Carbon Dioxide Level 25, Anion Gap 10, Blood Urea Nitrogen 22H, Creatinine 2.0H, Estimat Glomerular Filtration Rate 41.3, Glucose Level 98, Calcium Level 8.5, Phosphorus Level 3.2 , Total Bilirubin 0.3, Aspartate Amino Transf (AST/SGOT) 26, Alanine Aminotransferase (ALT/SGPT) 16, Alkaline Phosphatase 84, Total Protein 6.4, Albumin 2.8L, Globulin 3.6, Albumin/Globulin Ratio 0.8L Height (Feet): 5 Height (Inches): 11.00 Weight (Pounds): 244 General Appearance: no apparent distress Cardiovascular: normal rate Respiratory/Chest: lungs clear Abdomen: soft Objective No change Tawanda Holbrook MD February 28, 2020 10:53
[2020-02-28 11:18] LABS: BASOPHILS % (AUTO) 0.6 % (0.0-2.0); EOSINOPHILS % (AUTO) 6.5 % (0.0-3.0); HEMATOCRIT 35.4 % (42.0-52.0); HEMOGLOBIN 11.9 G/DL (14.2-18.0); LYMPHOCYTES % (AUTO) 22.4 % (20.0-45.0); MEAN CORPUSCULAR VOLUME 79 FL (80-99); MONOCYTES % (AUTO) 7.2 % (1.0-10.0); NEUTROPHILS % (AUTO) 63.4 % (45.0-75.0); PLATELET COUNT 142 K/UL (150-450); RED BLOOD COUNT 4.47 M/UL (4.70-6.10); RED CELL DISTRIBUTION WIDTH 12.6 % (11.6-14.8)
[2020-02-28 12:00] VITALS: BP 128/73
--- NOTE | 2020-02-28 13:54 | Cardiac Electrophysiology PN ---
Assessment/Plan Assessment/Plan 1. Chest pain. Ruled out for myocardial infarction with serial cardiac enzymes. The EKG no acute ischemic changes. EKG. Echo EF 60% Stress test Saturday as ruled out for COVID 2. Profound hypokalemia with potassium 2.3. Corrected by Dr. Holbrook. 3. Hypertension. Continue amlodipine 5 mg daily and hydralazine p.r.n. 4. Shortness of breath. Is being ruled out for COVID. Currently off antibiotic. 5. HIV. 6. History of diverticulitis. DW Dr Holbrook Subjective Subjective Off isolation an both Covids are negative. No CP. Stress test pending leeann Objective Last 24 Hour Vital Signs Date Time Temp Pulse Resp B/P (MAP) Pulse Ox O2 Delivery O2 Flow Rate FiO2 02/28/20 12:00 98.1 67 18 128/73 (91) 97 02/28/20 11:24 76 02/28/20 09:00 Nasal Cannula 2.0 02/28/20 08:33 78 134/92 02/28/20 08:00 97.7 78 18 134/92 (106) 96 02/28/20 07:57 83 02/28/20 04:00 90 02/28/20 00:00 98.0 81 21 130/80 (97) 96 02/28/20 00:00 91 02/27/20 23:06 84 128/79 02/27/20 21:00 Nasal Cannula 2.0 02/27/20 20:00 86 02/27/20 20:00 98.0 84 22 128/79 (95) 97 02/27/20 16:00 97.7 89 20 137/93 (108) 97 02/27/20 15:59 90 Intake and Output 02/27/20 02/28/20 19:00 07:00 Intake Total 354 ml Balance 354 ml Intake Oral 354 ml # Bowel Movements 1 Laboratory Tests Test 02/28/20 05:00 02/28/20 10:50 Sodium Level 142 MMOL/L (136-145) Potassium Level 4.1 MMOL/L (3.5-5.1) Chloride Level 107 MMOL/L (98-107) Carbon Dioxide Level 25 MMOL/L (21-32) Anion Gap 10 mmol/L (5-15) Blood Urea Nitrogen 22 mg/dL (7-18) H Creatinine 2.0 MG/DL (0.55-1.30) H Estimat Glomerular Filtration Rate 41.3 mL/min (>60) Glucose Level 98 MG/DL (74-106) Calcium Level 8.5 MG/DL (8.5-10.1) Phosphorus Level 3.2 MG/DL (2.5-4.9) Total Bilirubin 0.3 MG/DL (0.2-1.0) Aspartate Amino Transf (AST/SGOT) 26 U/L (15-37) Alanine Aminotransferase (ALT/SGPT) 16 U/L (12-78) Alkaline Phosphatase 84 U/L (46-116) Total Protein 6.4 G/DL (6.4-8.2) Albumin 2.8 G/DL (3.4-5.0) L Globulin 3.6 g/dL Albumin/Globulin Ratio 0.8 (1.0-2.7) L White Blood Count 7.0 K/UL (4.8-10.8) Red Blood Count 4.47 M/UL (4.70-6.10) L Hemoglobin 11.9 G/DL (14.2-18.0) L Hematocrit 35.4 % (42.0-52.0) L Mean Corpuscular Volume 79 FL (80-99) L Mean Corpuscular Hemoglobin 26.7 PG (27.0-31.0) L Mean Corpuscular Hemoglobin Concent 33.6 G/DL (32.0-36.0) Red Cell Distribution Width 12.6 % (11.6-14.8) Platelet Count 142 K/UL (150-450) L Mean Platelet Volume 5.6 FL (6.5-10.1) L Neutrophils (%) (Auto) 63.4 % (45.0-75.0) Lymphocytes (%) (Auto) 22.4 % (20.0-45.0) Monocytes (%) (Auto) 7.2 % (1.0-10.0) Eosinophils (%) (Auto) 6.5 % (0.0-3.0) H Basophils (%) (Auto) 0.6 % (0.0-2.0) Microbiology Date/Time Source Procedure Growth Status 02/25/20 18:00 Nasopharynx Coronavirus COVID-19 PCR ([facility]) - Final Complete 02/25/20 18:00 Urine,Clean Catch Urine Culture - Final Enterococcus Faecalis Mixed Urogenital Contaminants Complete Objective HEAD AND NECK: No JVD. LUNGS: Clear. CARDIOVASCULAR: Regular S1 and S2 with no murmur. ABDOMEN: Soft, obese. EXTREMITIES: No pitting edema. Thony Augustine MD February 28, 2020 13:54
[2020-02-28 16:00] VITALS: BP 124/80
--- NOTE | 2020-02-28 19:19 | NUR ---
HAND-OFF: Report given to PILI Tijerina. Pt in stable condition, endorsed plan of care.
--- NOTE | 2020-02-28 19:44 | NUR ---
NURSE NOTES: Received patient in bed, awake, alert and oriented x4, able to make his needs known, on 2 liters of oxygen via NC, patient can ambulate with steady gate.IV site is clean dry and intact, call light is within reach, bed is lowered, locked and alarm is on, will continue to monitor for comfort and safety.
[2020-02-28 20:00] VITALS: BP 142/87
[2020-02-28] MEDS: TraZODone 50mg tab ORAL SCH (20:23)
[2020-02-29] VITALS: BP 129/79
[2020-02-29 04:00] VITALS: BP 127/74
[2020-02-29 06:53] LABS: BASOPHILS % (AUTO) 1.1 % (0.0-2.0); EOSINOPHILS % (AUTO) 5.4 % (0.0-3.0); HEMATOCRIT 35.4 % (42.0-52.0); LYMPHOCYTES % (AUTO) 21.3 % (20.0-45.0); MEAN CORPUSCULAR VOLUME 78 FL (80-99); MONOCYTES % (AUTO) 7.1 % (1.0-10.0); NEUTROPHILS % (AUTO) 65.1 % (45.0-75.0); PLATELET COUNT 151 K/UL (150-450); RED BLOOD COUNT 4.51 M/UL (4.70-6.10); RED CELL DISTRIBUTION WIDTH 12.9 % (11.6-14.8); WHITE BLOOD COUNT 8.2 K/UL (4.8-10.8)
[2020-02-29 07:14] LABS: ANION GAP 9 mmol/L (5-15); BLOOD UREA NITROGEN 19 mg/dL (7-18); CALCIUM 8.4 MG/DL (8.5-10.1); CARBON DIOXIDE 29 MMOL/L (21-32); CHLORIDE 106 MMOL/L (98-107); SODIUM 144 MMOL/L (136-145)
--- NOTE | 2020-02-29 07:25 | NUR ---
HAND-OFF: Report given to Debora ALEJANDRE.
--- NOTE | 2020-02-29 07:27 | NUR ---
NURSE NOTES: Received report from PILI Tijerina. Pt is awake and alert. pt has NC 2LMP. pt has intact iv access AMADO 20G SL. Pt is on continues heart monitoring. no complain of pain at this moment. Dr charles is aware about K 3, he will F/U. Pt is NPO due to stress test. all needs attended, bed is locked and is in the lowest position. call light within easy reach. will continue to monitor.
[2020-02-29 08:00] VITALS: BP 139/95
[2020-02-29] MEDS: Tamsulosin 0.4mg cap ORAL SCH ×2 (09:00→17:05)
[2020-02-29] MEDS: BuPROPion XL 150mg tab ORAL SCH ×2 (09:00→12:59)
[2020-02-29] MEDS: Docusate 100mg cap ORAL SCH ×3 (09:00→17:05)
[2020-02-29] MEDS: Metoprolol Tartrate 12.5mg TAB ORAL SCH ×2 (09:00→21:17)
[2020-02-29 09:01] LABS: ALANINE AMINOTRANSFERASE 24 U/L (12-78); ALBUMIN 2.9 G/DL (3.4-5.0); ALKALINE PHOSPHATASE 73 U/L (46-116); ASPARTATE AMINO TRANSFERASE 16 U/L (15-37); BILIRUBIN,DIRECT 0.1 MG/DL (0.0-0.3); BILIRUBIN,TOTAL 0.3 MG/DL (0.2-1.0); PHOSPHORUS 3.6 MG/DL (2.5-4.9)
--- NOTE | 2020-02-29 09:12 | Cardiac Electrophysiology PN ---
Assessment/Plan Assessment/Plan 1. Chest pain. Ruled out for myocardial infarction with serial cardiac enzymes. The EKG no acute ischemic changes. EKG. Echo EF 60% Stress test today pending 2. Profound hypokalemia with potassium 2.3. Corrected by Dr. Holbrook. 3. Hypertension. Continue amlodipine 5 mg daily and hydralazine p.r.n. 4. Shortness of breath. Ruled out for COVID. Off antibiotic. 5. HIV. 6. History of diverticulitis. DW Dr Holbrook Subjective Subjective Off isolation as both Covids are negative. No CP. Stress test pending today. In SR Objective Last 24 Hour Vital Signs Date Time Temp Pulse Resp B/P (MAP) Pulse Ox O2 Delivery O2 Flow Rate FiO2 02/29/20 04:00 98.7 74 18 127/74 (91) 98 02/29/20 04:00 75 02/29/20 04:00 55 02/29/20 00:00 97.4 78 20 129/79 (96) 98 02/29/20 00:00 77 02/28/20 21:04 Nasal Cannula 2.0 02/28/20 20:23 74 142/78 02/28/20 20:00 98.9 74 20 142/87 (105) 98 02/28/20 20:00 82 02/28/20 16:00 98.7 81 19 124/80 (95) 98 02/28/20 15:49 79 02/28/20 12:00 98.1 67 18 128/73 (91) 97 02/28/20 11:24 76 Intake and Output 02/28/20 02/29/20 19:00 07:00 Intake Total 280 ml Output Total 1200 ml 600 ml Balance -920 ml -600 ml Intake Oral 280 ml Output Urine Total 1200 ml 600 ml # Voids 3 # Bowel Movements 1 Laboratory Tests Test 02/28/20 10:50 02/29/20 05:56 02/29/20 05:58 White Blood Count 7.0 K/UL (4.8-10.8) 8.2 K/UL (4.8-10.8) Red Blood Count 4.47 M/UL (4.70-6.10) L 4.51 M/UL (4.70-6.10) L Hemoglobin 11.9 G/DL (14.2-18.0) L 12.0 G/DL (14.2-18.0) L Hematocrit 35.4 % (42.0-52.0) L 35.4 % (42.0-52.0) L Mean Corpuscular Volume 79 FL (80-99) L 78 FL (80-99) L Mean Corpuscular Hemoglobin 26.7 PG (27.0-31.0) L 26.6 PG (27.0-31.0) L Mean Corpuscular Hemoglobin Concent 33.6 G/DL (32.0-36.0) 33.9 G/DL (32.0-36.0) Red Cell Distribution Width 12.6 % (11.6-14.8) 12.9 % (11.6-14.8) Platelet Count 142 K/UL (150-450) L 151 K/UL (150-450) Mean Platelet Volume 5.6 FL (6.5-10.1) L 6.4 FL (6.5-10.1) L Neutrophils (%) (Auto) 63.4 % (45.0-75.0) 65.1 % (45.0-75.0) Lymphocytes (%) (Auto) 22.4 % (20.0-45.0) 21.3 % (20.0-45.0) Monocytes (%) (Auto) 7.2 % (1.0-10.0) 7.1 % (1.0-10.0) Eosinophils (%) (Auto) 6.5 % (0.0-3.0) H 5.4 % (0.0-3.0) H Basophils (%) (Auto) 0.6 % (0.0-2.0) 1.1 % (0.0-2.0) Phosphorus Level 3.6 MG/DL (2.5-4.9) Magnesium Level 1.8 MG/DL (1.8-2.4) Total Bilirubin 0.3 MG/DL (0.2-1.0) Direct Bilirubin 0.1 MG/DL (0.0-0.3) Aspartate Amino Transf (AST/SGOT) 16 U/L (15-37) Alanine Aminotransferase (ALT/SGPT) 24 U/L (12-78) Alkaline Phosphatase 73 U/L (46-116) Total Protein 5.8 G/DL (6.4-8.2) L Albumin 2.9 G/DL (3.4-5.0) L Sodium Level 144 MMOL/L (136-145) Potassium Level 3.0 MMOL/L (3.5-5.1) L Chloride Level 106 MMOL/L (98-107) Carbon Dioxide Level 29 MMOL/L (21-32) Anion Gap 9 mmol/L (5-15) Blood Urea Nitrogen 19 mg/dL (7-18) H Creatinine 2.0 MG/DL (0.55-1.30) H Estimat Glomerular Filtration Rate 41.3 mL/min (>60) Glucose Level 122 MG/DL (74-106) H Calcium Level 8.4 MG/DL (8.5-10.1) L Objective HEAD AND NECK: No JVD. LUNGS: Clear. CARDIOVASCULAR: Regular S1 and S2 with no murmur. ABDOMEN: Soft EXTREMITIES: No pitting edema. Thony Augustine MD February 29, 2020 09:12
--- NOTE | 2020-02-29 09:32 | Pulmonology Progress Note ---
Subjective ROS Limited/Unobtainable: No Interval Events: None new Constitutional: Reports: no symptoms HEENT: Repors: no symptoms Respiratory: Reports: no symptoms Cardiovascular: Reports: no symptoms Gastrointestinal/Abdominal: Reports: no symptoms Allergies: Coded Allergies: No Known Allergies (Unverified , 10/10/16) All Systems: reviewed and negative except above Objective Last 24 Hour Vital Signs Date Time Temp Pulse Resp B/P (MAP) Pulse Ox O2 Delivery O2 Flow Rate FiO2 02/29/20 04:00 98.7 74 18 127/74 (91) 98 02/29/20 04:00 75 02/29/20 04:00 55 02/29/20 00:00 97.4 78 20 129/79 (96) 98 02/29/20 00:00 77 02/28/20 21:04 Nasal Cannula 2.0 02/28/20 20:23 74 142/78 02/28/20 20:00 98.9 74 20 142/87 (105) 98 02/28/20 20:00 82 02/28/20 16:00 98.7 81 19 124/80 (95) 98 02/28/20 15:49 79 02/28/20 12:00 98.1 67 18 128/73 (91) 97 02/28/20 11:24 76 Intake and Output 02/28/20 02/29/20 19:00 07:00 Intake Total 280 ml Output Total 1200 ml 600 ml Balance -920 ml -600 ml Intake Oral 280 ml Output Urine Total 1200 ml 600 ml # Voids 3 # Bowel Movements 1 General Appearance: no acute distress HEENT: normocephalic Respiratory: chest wall non-tender Cardiovascular: normal peripheral pulses Abdomen: normal bowel sounds Extremities: no cyanosis Laboratory Tests 02/28/20 10:50: White Blood Count 7.0, Red Blood Count 4.47L, Hemoglobin 11.9L, Hematocrit 35.4L , Mean Corpuscular Volume 79L, Mean Corpuscular Hemoglobin 26.7L, Mean Corpuscular Hemoglobin Concent 33.6, Red Cell Distribution Width 12.6, Platelet Count 142L, Mean Platelet Volume 5.6L, Neutrophils (%) (Auto) 63.4, Lymphocytes (%) (Auto) 22.4, Monocytes (%) (Auto) 7.2, Eosinophils (%) (Auto) 6.5H, Basophils (%) (Auto) 0.6 02/29/20 05:56: Phosphorus Level 3.6, Magnesium Level 1.8, Total Bilirubin 0.3, Direct Bilirubin 0.1, Aspartate Amino Transf (AST/SGOT) 16, Alanine Aminotransferase ( ALT/SGPT) 24, Alkaline Phosphatase 73, Total Protein 5.8L, Albumin 2.9L 02/29/20 05:58: White Blood Count 8.2, Red Blood Count 4.51L, Hemoglobin 12.0L, Hematocrit 35.4L , Mean Corpuscular Volume 78L, Mean Corpuscular Hemoglobin 26.6L, Mean Corpuscular Hemoglobin Concent 33.9, Red Cell Distribution Width 12.9, Platelet Count 151, Mean Platelet Volume 6.4L, Neutrophils (%) (Auto) 65.1, Lymphocytes ( %) (Auto) 21.3, Monocytes (%) (Auto) 7.1, Eosinophils (%) (Auto) 5.4H, Basophils (%) (Auto) 1.1, Sodium Level 144, Potassium Level 3.0L, Chloride Level 106, Carbon Dioxide Level 29, Anion Gap 9, Blood Urea Nitrogen 19H, Creatinine 2.0H, Estimat Glomerular Filtration Rate 41.3, Glucose Level 122H, Calcium Level 8.4L Current Medications Medications (Trade) Dose Ordered Sig/Mamie Route PRN Reason Start Time Stop Time Status Last Admin Dose Admin Acetaminophen/ Codeine Phosphate (Tylenol #3) 1 tab Q4H PRN ORAL For Pain Level <=5 02/26/20 11:30 03/04/20 11:29 02/27/20 23:07 Bupropion HCl (Wellbutrin XL) 150 mg DAILY ORAL 02/24/20 09:00 03/25/20 08:59 02/28/20 08:33 Docusate Sodium (Colace) 100 mg TID ORAL 02/25/20 13:00 03/25/20 08:59 02/28/20 17:26 Dolutegravir Sodium (Tivicay) 50 mg DAILY ORAL 02/26/20 09:00 05/26/20 08:59 02/28/20 08:34 Folic Acid (Folate) 1 mg DAILY ORAL 02/25/20 11:30 03/26/20 11:29 02/28/20 08:33 Hydralazine HCl (Apresoline) 25 mg Q4H PRN ORAL Blood pressure over 160 systol 02/24/20 12:45 05/24/20 12:44 Magnesium Hydroxide (Mom) 30 ml DAILYPRN PRN ORAL Constipation 02/28/20 09:15 03/29/20 09:14 Metoprolol Tartrate (Lopressor) 12.5 mg Q12HR ORAL 02/26/20 21:00 05/26/20 20:59 02/28/20 20:23 Patient Own Medication (Patient's Own Med) 1 ea DAILY ORAL 02/26/20 09:00 03/27/20 08:59 02/28/20 08:34 Potassium Chloride (K-Dur) 40 meq TWICE A DAY ORAL 02/29/20 09:00 05/29/20 08:59 Regadenoson (Lexiscan) 0.4 mg ONCE PRN IV CARDIOLOGY 02/27/20 12:27 03/01/20 23:59 Tamsulosin HCl (Flomax) 0.4 mg BID ORAL 02/26/20 10:30 03/27/20 10:29 02/28/20 17:26 Trazodone HCl (Desyrel) 50 mg BEDTIME ORAL 02/24/20 21:00 03/25/20 20:59 02/28/20 20:23 Assessment/Plan Assessment/Plan IMPRESSION: 1. Asthma, stable. 2. Status post fall. 3. HIV positivity. 4. Hypertension. DISCUSSION: Continue current medications, Asthma stable Will continue Tylenol #4; I will follow. Stress test today Dc planning Sakshi Beth Omar Syed MD February 29, 2020 09:32
--- NOTE | 2020-02-29 09:39 | Diagnostic Imaging Report ---
EXAM: CT CT Chest no Contrast CLINICAL HISTORY: Chest pain and dyspnea. TECHNIQUE: Axial images obtained through the chest without contrast. All CT scans at this facility are performed using dose modulation techniques as appropriate to a performed exam including the following: automated exposure control with adjustment of the mA and/or kV according to patient size. RADIATION DOSE: CTDIvol: 35.1 mGy DLP: 836.2 mGy-cm Dose information generated by the CT scanner is available in PACS. COMPARISON: None FINDINGS: There is minimal dependent atelectasis. Lungs otherwise clear. No sign of acute infiltrate or edema. Vascularity appears normal. Cardiac and mediastinal structures are within normal limits. There is no pathologic size adenopathy. There is no effusion. Limited images through the upper abdomen is unremarkable. IMPRESSION: MINIMAL DEPENDENT ATELECTASIS. NO SIGN OF ACUTE CARDIOPULMONARY DISEASE.
--- NOTE | 2020-02-29 09:59 | General Progress Note ---
Assessment/Plan Problem List: (1) SOB (shortness of breath) ICD Codes: R06.02 - Shortness of breath SNOMED: 165566565 (2) Suspected COVID-19 virus infection ICD Codes: Z20.828 - Contact with and (suspected) exposure to other viral communicable diseases SNOMED: 771544046 (3) Hypokalemia ICD Codes: E87.6 - Hypokalemia SNOMED: 52485691 (4) Chest pain ICD Codes: R07.9 - Chest pain, unspecified SNOMED: 59103130 Qualifiers: Qualified Codes: R07.9 - Chest pain, unspecified (5) LEE (acute kidney injury) ICD Codes: N17.9 - Acute kidney failure, unspecified SNOMED: 30149472, 3476018 (6) HTN (hypertension) ICD Codes: I10 - Essential (primary) hypertension SNOMED: 43336087 (7) Constipation ICD Codes: K59.00 - Constipation, unspecified SNOMED: 36376224 Status: stable, progressing Assessment/Plan: o2 pulm tx abx pt diet cardio f/u cbc bmp am Subjective Constitutional: Reports: weakness Allergies: Coded Allergies: No Known Allergies (Unverified , 10/10/16) All Systems: reviewed and negative except above Subjective calm sl constipated Objective Last 24 Hour Vital Signs Date Time Temp Pulse Resp B/P (MAP) Pulse Ox O2 Delivery O2 Flow Rate FiO2 02/29/20 04:00 98.7 74 18 127/74 (91) 98 02/29/20 04:00 75 02/29/20 04:00 55 02/29/20 00:00 97.4 78 20 129/79 (96) 98 02/29/20 00:00 77 02/28/20 21:04 Nasal Cannula 2.0 02/28/20 20:23 74 142/78 02/28/20 20:00 98.9 74 20 142/87 (105) 98 02/28/20 20:00 82 02/28/20 16:00 98.7 81 19 124/80 (95) 98 02/28/20 15:49 79 02/28/20 12:00 98.1 67 18 128/73 (91) 97 02/28/20 11:24 76 Intake and Output 02/28/20 02/29/20 19:00 07:00 Intake Total 280 ml Output Total 1200 ml 600 ml Balance -920 ml -600 ml Intake Oral 280 ml Output Urine Total 1200 ml 600 ml # Voids 3 # Bowel Movements 1 Laboratory Tests 02/28/20 10:50: White Blood Count 7.0, Red Blood Count 4.47L, Hemoglobin 11.9L, Hematocrit 35.4L , Mean Corpuscular Volume 79L, Mean Corpuscular Hemoglobin 26.7L, Mean Corpuscular Hemoglobin Concent 33.6, Red Cell Distribution Width 12.6, Platelet Count 142L, Mean Platelet Volume 5.6L, Neutrophils (%) (Auto) 63.4, Lymphocytes (%) (Auto) 22.4, Monocytes (%) (Auto) 7.2, Eosinophils (%) (Auto) 6.5H, Basophils (%) (Auto) 0.6 02/29/20 05:56: Phosphorus Level 3.6, Magnesium Level 1.8, Total Bilirubin 0.3, Direct Bilirubin 0.1, Aspartate Amino Transf (AST/SGOT) 16, Alanine Aminotransferase ( ALT/SGPT) 24, Alkaline Phosphatase 73, Total Protein 5.8L, Albumin 2.9L 02/29/20 05:58: White Blood Count 8.2, Red Blood Count 4.51L, Hemoglobin 12.0L, Hematocrit 35.4L , Mean Corpuscular Volume 78L, Mean Corpuscular Hemoglobin 26.6L, Mean Corpuscular Hemoglobin Concent 33.9, Red Cell Distribution Width 12.9, Platelet Count 151, Mean Platelet Volume 6.4L, Neutrophils (%) (Auto) 65.1, Lymphocytes ( %) (Auto) 21.3, Monocytes (%) (Auto) 7.1, Eosinophils (%) (Auto) 5.4H, Basophils (%) (Auto) 1.1, Sodium Level 144, Potassium Level 3.0L, Chloride Level 106, Carbon Dioxide Level 29, Anion Gap 9, Blood Urea Nitrogen 19H, Creatinine 2.0H, Estimat Glomerular Filtration Rate 41.3, Glucose Level 122H, Calcium Level 8.4L Height (Feet): 5 Height (Inches): 11.00 Weight (Pounds): 244 General Appearance: alert EENT: normal ENT inspection Neck: normal alignment Cardiovascular: normal peripheral pulses, normal rate, regular rhythm Respiratory/Chest: chest wall non-tender, lungs clear, normal breath sounds Abdomen: normal bowel sounds, non tender, soft Extremities: normal inspection Edema: no edema noted Arm (L), no edema noted Arm (R), no edema noted Leg (L), no edema noted Leg (R), no edema noted Pedal (L), no edema noted Pedal (R), no edema noted Generalized Neurologic: responsive, motor weakness Skin: normal pigmentation, warm/dry Zeyda Holt February 29, 2020 09:58
--- NOTE | 2020-02-29 10:16 | Nephrology Progress Note ---
Assessment/Plan Problem List: (1) LEE (acute kidney injury) (2) Hypokalemia (3) HTN (hypertension) (4) HIV disease (5) DMII (diabetes mellitus, type 2) Assessment Renal failure appears to be chronic, may have superimposed acute component Serum creatinine down from 2.3 to 2 today Hypo-kalemia History of hypertension History of HIV disease History of diverticulitis Proteinuria with 1+ leukocyte Estrace Plan Serum potassium lowered again, will start oral potassium chloride supplement Serum creatinine remains stable Patient denies any diarrhea and under control he complains of constipation Serum potassium improved Will continue oral magnesium Start Flomax Change diet to medium carbohydrates Switch to Lopressor from [employer] Previously: Stop Dyazide, stop Lotensin Potassium supplement p.o. and IV Adjust blood pressure medication Avoid nephrotoxic's Urine studies, urine culture Kidney ultrasound pending results Monitor renal parameters Per orders IMPRESSION:Kidney ultrasound LEFT RENAL STONE. NO HYDRONEPHROSIS. BILATERAL CORTICAL THINNING WITH SMALL RENAL CYSTS. Subjective ROS Limited/Unobtainable: No Constitutional: Reports: malaise Objective Objective Last 24 Hour Vital Signs Date Time Temp Pulse Resp B/P (MAP) Pulse Ox O2 Delivery O2 Flow Rate FiO2 02/29/20 04:00 98.7 74 18 127/74 (91) 98 02/29/20 04:00 75 02/29/20 04:00 55 02/29/20 00:00 97.4 78 20 129/79 (96) 98 02/29/20 00:00 77 02/28/20 21:04 Nasal Cannula 2.0 02/28/20 20:23 74 142/78 02/28/20 20:00 98.9 74 20 142/87 (105) 98 02/28/20 20:00 82 02/28/20 16:00 98.7 81 19 124/80 (95) 98 02/28/20 15:49 79 02/28/20 12:00 98.1 67 18 128/73 (91) 97 02/28/20 11:24 76 Intake and Output 02/28/20 02/29/20 19:00 07:00 Intake Total 280 ml Output Total 1200 ml 600 ml Balance -920 ml -600 ml Intake Oral 280 ml Output Urine Total 1200 ml 600 ml # Voids 3 # Bowel Movements 1 Laboratory Tests 02/28/20 10:50: White Blood Count 7.0, Red Blood Count 4.47L, Hemoglobin 11.9L, Hematocrit 35.4L , Mean Corpuscular Volume 79L, Mean Corpuscular Hemoglobin 26.7L, Mean Corpuscular Hemoglobin Concent 33.6, Red Cell Distribution Width 12.6, Platelet Count 142L, Mean Platelet Volume 5.6L, Neutrophils (%) (Auto) 63.4, Lymphocytes (%) (Auto) 22.4, Monocytes (%) (Auto) 7.2, Eosinophils (%) (Auto) 6.5H, Basophils (%) (Auto) 0.6 02/29/20 05:56: Phosphorus Level 3.6, Magnesium Level 1.8, Total Bilirubin 0.3, Direct Bilirubin 0.1, Aspartate Amino Transf (AST/SGOT) 16, Alanine Aminotransferase ( ALT/SGPT) 24, Alkaline Phosphatase 73, Total Protein 5.8L, Albumin 2.9L 02/29/20 05:58: White Blood Count 8.2, Red Blood Count 4.51L, Hemoglobin 12.0L, Hematocrit 35.4L , Mean Corpuscular Volume 78L, Mean Corpuscular Hemoglobin 26.6L, Mean Corpuscular Hemoglobin Concent 33.9, Red Cell Distribution Width 12.9, Platelet Count 151, Mean Platelet Volume 6.4L, Neutrophils (%) (Auto) 65.1, Lymphocytes ( %) (Auto) 21.3, Monocytes (%) (Auto) 7.1, Eosinophils (%) (Auto) 5.4H, Basophils (%) (Auto) 1.1, Sodium Level 144, Potassium Level 3.0L, Chloride Level 106, Carbon Dioxide Level 29, Anion Gap 9, Blood Urea Nitrogen 19H, Creatinine 2.0H, Estimat Glomerular Filtration Rate 41.3, Glucose Level 122H, Calcium Level 8.4L Height (Feet): 5 Height (Inches): 11.00 Weight (Pounds): 244 General Appearance: no apparent distress Cardiovascular: other - Variable rate Abdomen: distended Objective No change Tawanda Holbrook MD February 29, 2020 10:15
[2020-02-29] MEDS: Milk of Magnesia 30ml Ud ORAL PRN ×2 (10:23→22:02)
--- NOTE | 2020-02-29 10:24 | NUR ---
NURSE NOTES: pt refused morning meds except KCL and asked to have HIV meds after stress test. will F/U.
--- NOTE | 2020-02-29 11:00 | NUR ---
PT NOTES Patient is safe and independent with bed mobility, transfers and gait without assistive device. No LOB noted. Patient has met all PT goals. Patient encouraged to ambulate in room with nursing supervision to prevent deconditioning. Patient agrees. No further PT indicated at this time. Patient is safe to discharge home when cleared by M.D. Discharge from PT.
[2020-02-29 11:59] VITALS: BP 139/86
[2020-02-29] MEDS: EDURANT 25 MG ORAL SCH (12:59)
[2020-02-29] MEDS: Dolutegravir Sodium 50mg tab ORAL SCH (12:59)
[2020-02-29] MEDS: Magnesium Oxide 400mg tab ORAL SCH ×2 (12:59→17:05)
--- NOTE | 2020-02-29 13:39 | NUR ---
CASE MANAGEMENT:REVIEW 02/29/20 SI: UTI. HTN. ASTHMA. HIV HYPOKALEMIA 98.1 78 18 139/86 96% ON 2L/NC K-3.0 BUN+19 CR+2.0 IS: IV LEXISCAN X1 MAG OXIDE PO TID K-DUR PO BID LOPRESSOR PO Q12 HAART REGIMEN WELBUTRIN PO QD : TELEMETRY STATUS DCP: FROM HOME PLAN: STRESS TEST FOR TODAY
--- NOTE | 2020-02-29 13:49 | NUR ---
DISCHARGE PLANNING PLAN IS FOR PATIENT TO RETURN HOME NURSING TO OBTAIN CLEARANCE FROM CONSULTANTS FOR DISCHARGE
--- NOTE | 2020-02-29 14:26 | NUR ---
NURSE NOTES: RN called Brian Hernandez Rosario if pt is clear to D/C? Dr Reeves is coming here and Dr Torres is waiting for stress test result.
--- NOTE | 2020-02-29 15:12 | Infectious Diseases Prog Note ---
Assessment/Plan Assessment/Plan Assessment: UTI (+Urinary frequency, no dysuria) -u/a no pyuria, nit neg, leuk +1; ucx >100 E. fecalis (S amp, vanco) Afebrile MIld leukocytosis/lymphopenia- SP Chest pain/Dyspnea- on 2l nC- ?etiology- no PE, COVID neg x2 -02/[address]:MINIMAL DEPENDENT ATELECTASIS. NO SIGN OF ACUTE CARDIOPULMONARY DISEASE. -02/24 CXR: NO ACUTE CARDIOPULMONARY DISEASE. -02/22 CXR: no acute disease SARS-COV2 PCR neg x2 (02/22, 02/24) trops neg x3 EKG no ischemic changes R ankle pain- no evidence of cellulitis, mild swelling- -R ankle xray: No displaced fracture or dislocation identified. -v. duplex: UNREMARKABLE VENOUS DUPLEX. Hypokalemia LEE vs CKD -Renal US: LEFT RENAL STONE. NO HYDRONEPHROSIS.BILATERAL CORTICAL THINNING WITH SMALL RENAL CYSTS. HIV- dx'ed 25 yrs ago- on treatment, currently on Juluca (previously on Atripla ) -per pt HIV VL UD and CD4 800s (last lab Oct 2019) HTN diverticulitis asthma Obesity Plan: -PO Amoxocillin 875mg PO bid x5 days -ok to discharge on above regimen -f/u cx -Monitor CBC/CMP, temperatures -Continue HAART: Dolutegravir 50mg/Rilpivirine 25mg once daily -Neprho, Pulm f/u Thank you for consulting [facility]. Will contiue to follow along with you. Discussed with RN. Subjective Allergies: Coded Allergies: No Known Allergies (Unverified , 10/10/16) Subjective afebrile currently at patient denies dysuria but endorses urinary frequency Objective Vital Signs Last 24 Hour Vital Signs Date Time Temp Pulse Resp B/P (MAP) Pulse Ox O2 Delivery O2 Flow Rate FiO2 02/29/20 11:59 98.1 78 18 139/86 (103) 96 02/29/20 11:50 78 02/29/20 09:00 Nasal Cannula 2.0 02/29/20 09:00 55 127/74 02/29/20 08:00 97.9 81 18 139/95 (110) 97 02/29/20 07:42 101 02/29/20 04:00 98.7 74 18 127/74 (91) 98 02/29/20 04:00 75 02/29/20 04:00 55 02/29/20 00:00 97.4 78 20 129/79 (96) 98 02/29/20 00:00 77 02/28/20 21:04 Nasal Cannula 2.0 02/28/20 20:23 74 142/78 02/28/20 20:00 98.9 74 20 142/87 (105) 98 02/28/20 20:00 82 02/28/20 16:00 98.7 81 19 124/80 (95) 98 02/28/20 15:49 79 Height (Feet): 5 Height (Inches): 11.00 Weight (Pounds): 244 Objective General Appearance: no apparent distress Cardiovascular: no murmurs Abdomen: S+D, NT, ND Ext: no rash, no edema Lungs: CTA x2 Laboratory Tests Test 02/29/20 05:56 02/29/20 05:58 Phosphorus Level 3.6 MG/DL (2.5-4.9) Magnesium Level 1.8 MG/DL (1.8-2.4) Total Bilirubin 0.3 MG/DL (0.2-1.0) Direct Bilirubin 0.1 MG/DL (0.0-0.3) Aspartate Amino Transf (AST/SGOT) 16 U/L (15-37) Alanine Aminotransferase (ALT/SGPT) 24 U/L (12-78) Alkaline Phosphatase 73 U/L (46-116) Total Protein 5.8 G/DL (6.4-8.2) L Albumin 2.9 G/DL (3.4-5.0) L White Blood Count 8.2 K/UL (4.8-10.8) Red Blood Count 4.51 M/UL (4.70-6.10) L Hemoglobin 12.0 G/DL (14.2-18.0) L Hematocrit 35.4 % (42.0-52.0) L Mean Corpuscular Volume 78 FL (80-99) L Mean Corpuscular Hemoglobin 26.6 PG (27.0-31.0) L Mean Corpuscular Hemoglobin Concent 33.9 G/DL (32.0-36.0) Red Cell Distribution Width 12.9 % (11.6-14.8) Platelet Count 151 K/UL (150-450) Mean Platelet Volume 6.4 FL (6.5-10.1) L Neutrophils (%) (Auto) 65.1 % (45.0-75.0) Lymphocytes (%) (Auto) 21.3 % (20.0-45.0) Monocytes (%) (Auto) 7.1 % (1.0-10.0) Eosinophils (%) (Auto) 5.4 % (0.0-3.0) H Basophils (%) (Auto) 1.1 % (0.0-2.0) Sodium Level 144 MMOL/L (136-145) Potassium Level 3.0 MMOL/L (3.5-5.1) L Chloride Level 106 MMOL/L (98-107) Carbon Dioxide Level 29 MMOL/L (21-32) Anion Gap 9 mmol/L (5-15) Blood Urea Nitrogen 19 mg/dL (7-18) H Creatinine 2.0 MG/DL (0.55-1.30) H Estimat Glomerular Filtration Rate 41.3 mL/min (>60) Glucose Level 122 MG/DL (74-106) H Calcium Level 8.4 MG/DL (8.5-10.1) L Current Medications Medications (Trade) Dose Ordered Sig/Mamie Route PRN Reason Start Time Stop Time Status Last Admin Dose Admin Acetaminophen/ Codeine Phosphate (Tylenol #3) 1 tab Q4H PRN ORAL For Pain Level <=5 02/26/20 11:30 03/04/20 11:29 02/27/20 23:07 Bupropion HCl (Wellbutrin XL) 150 mg DAILY ORAL 02/24/20 09:00 03/25/20 08:59 02/29/20 12:59 Docusate Sodium (Colace) 100 mg TID ORAL 02/25/20 13:00 03/25/20 08:59 02/29/20 12:59 Dolutegravir Sodium (Tivicay) 50 mg DAILY ORAL 02/26/20 09:00 05/26/20 08:59 02/29/20 12:59 Folic Acid (Folate) 1 mg DAILY ORAL 02/25/20 11:30 03/26/20 11:29 02/28/20 08:33 Hydralazine HCl (Apresoline) 25 mg Q4H PRN ORAL Blood pressure over 160 systol 02/24/20 12:45 05/24/20 12:44 Magnesium Hydroxide (Mom) 30 ml DAILYPRN PRN ORAL Constipation 02/28/20 09:15 03/29/20 09:14 02/29/20 10:23 Magnesium Oxide (Mag-Ox 400mg) 400 mg THREE TIMES A DAY ORAL 02/29/20 13:00 03/30/20 12:59 02/29/20 12:59 Metoprolol Tartrate (Lopressor) 12.5 mg Q12HR ORAL 02/26/20 21:00 05/26/20 20:59 02/28/20 20:23 Patient Own Medication (Patient's Own Med) 1 ea DAILY ORAL 02/26/20 09:00 03/27/20 08:59 02/29/20 12:59 Potassium Chloride (K-Dur) 40 meq TWICE A DAY ORAL 02/29/20 09:00 05/29/20 08:59 02/29/20 10:23 Regadenoson (Lexiscan) 0.4 mg ONCE PRN IV CARDIOLOGY 02/27/20 12:27 03/01/20 23:59 02/29/20 12:50 Tamsulosin HCl (Flomax) 0.4 mg BID ORAL 02/26/20 10:30 03/27/20 10:29 02/28/20 17:26 Trazodone HCl (Desyrel) 50 mg BEDTIME ORAL 02/24/20 21:00 03/25/20 20:59 02/28/20 20:23 Mitzi Reeves M.D. February 29, 2020 15:12
[2020-02-29 16:00] VITALS: BP 133/85
--- NOTE | 2020-02-29 19:15 | NUR ---
NURSE NOTES: Received report from PILI Cazares. Patient awake, alert, and coherent. Able to verbalize needs. Awaiting stress test result for cardio clearance. No complaints of pain and discomfort at this time. IV site intact and asymtomatic; flushed. Bed in lowest position, brakes engaged. Side rails raised x2. Call light placed within reach. Will continue to monitor.
--- NOTE | 2020-02-29 19:31 | NUR ---
HAND-OFF: Report given to Sailaja ALEJANDRE. Pt is awake and stable.
[2020-02-29 20:00] VITALS: BP 149/95
[2020-02-29] MEDS: TraZODone 50mg tab ORAL SCH (21:17)
[2020-02-29] MEDS: Tylenol #3 tab (300mg/30mg) ORAL PRN (22:05)
[2020-03-01] VITALS: BP 133/86
--- NOTE | 2020-03-01 03:37 | NUR ---
NURSE NOTES: Patient asleep, but arousable. No signs of acute distress or shortness of breath. Bed in lowest position, brakes engaged and locked. Call light placed within reach. Will continue to monitor.
[2020-03-01 04:00] VITALS: BP 138/87
[2020-03-01 07:20] LABS: ANION GAP 8 mmol/L (5-15); BLOOD UREA NITROGEN 21 mg/dL (7-18); CALCIUM 8.3 MG/DL (8.5-10.1); CARBON DIOXIDE 31 MMOL/L (21-32); CHLORIDE 106 MMOL/L (98-107); POTASSIUM 3.3 MMOL/L (3.5-5.1); SODIUM 145 MMOL/L (136-145)
[2020-03-01 07:21] LABS: BASOPHILS % (AUTO) 0.7 % (0.0-2.0); EOSINOPHILS % (AUTO) 5.1 % (0.0-3.0); HEMATOCRIT 34.9 % (42.0-52.0); HEMOGLOBIN 11.9 G/DL (14.2-18.0); LYMPHOCYTES % (AUTO) 20.3 % (20.0-45.0); MEAN CORPUSCULAR VOLUME 78 FL (80-99); MONOCYTES % (AUTO) 6.6 % (1.0-10.0); NEUTROPHILS % (AUTO) 67.4 % (45.0-75.0); PLATELET COUNT 153 K/UL (150-450); RED BLOOD COUNT 4.46 M/UL (4.70-6.10); RED CELL DISTRIBUTION WIDTH 12.4 % (11.6-14.8); WHITE BLOOD COUNT 7.3 K/UL (4.8-10.8)
--- NOTE | 2020-03-01 07:30 | NUR ---
NURSE NOTES: Received report from PILI Menard. Pt is awake and alert. pt has NC 2LMP. pt has intact iv access L chest 22G SL. Pt is on continues heart monitoring. no complain of pain at this moment. Dr charles is aware about K 3.4, he will F/U. all needs attended, bed is locked and is in the lowest position. call light within easy reach. will continue to monitor.
--- NOTE | 2020-03-01 07:45 | NUR ---
HAND-OFF: Report given to PILI Cazares. Endorsed information regarding DM status. Patient stable.
[2020-03-01 08:00] VITALS: BP 137/74
[2020-03-01] MEDS: Tamsulosin 0.4mg cap ORAL SCH ×2 (08:38→17:38)
[2020-03-01] MEDS: Docusate 100mg cap ORAL SCH ×3 (08:38→17:38)
[2020-03-01] MEDS: Magnesium Oxide 400mg tab ORAL SCH ×3 (08:38→17:38)
[2020-03-01] MEDS: Milk of Magnesia 30ml Ud ORAL PRN (08:38)
[2020-03-01] MEDS: Metoprolol Tartrate 12.5mg TAB ORAL SCH (08:38)
[2020-03-01] MEDS: BuPROPion XL 150mg tab ORAL SCH (08:38)
[2020-03-01] MEDS: Dolutegravir Sodium 50mg tab ORAL SCH (08:39)
[2020-03-01] MEDS: EDURANT 25 MG ORAL SCH (08:39)
[2020-03-01] MEDS ORDERED: Spironolactone 25mg tab ORAL SCH (09:15)
--- NOTE | 2020-03-01 10:57 | NUR ---
RD ASSESSMENT & RECOMMENDATIONS SEE CARE ACTIVITY FOR COMPLETE ASSESSMENT DAILY ESTIMATED NEEDS: Needs based on cardiac, HIV, 86kg abw 25-30 kcals/kg 9990-8824 total kcals 1-1.3 g protein/kg 86-111 g total protein 25-30 mL/kg 8468-7158 total fluid mLs NUTRITION DIAGNOSIS: Altered nutrition related lab values R/T diabetes? as evidenced by A1C of 6.7, elev BGs (113, 210). CURRENT DIET:CCHO MED PO DIET RECOMMENDATIONS: CARDIAC + CCHO MED ADDITIONAL RECOMMENDATIONS: * Standing wt for accurate CBW * Carb controlled diet * Add NISS for improved BG control: A1C 6.7 * add folic acid 1mg QD (folate 7.2) * Monitor lytes, replete as needed (low K)
--- NOTE | 2020-03-01 11:47 | Cardiac Electrophysiology PN ---
Assessment/Plan Assessment/Plan 1. Chest pain. Ruled out for myocardial infarction with serial cardiac enzymes. The EKG no acute ischemic changes. EKG. Echo EF 60% Stress test done yesterday. Results pending 2. Profound hypokalemia with potassium 2.3. Corrected by Dr. Holbrook. 3. Hypertension. Continue amlodipine 5 mg daily and hydralazine p.r.n. 4. Shortness of breath. Ruled out for COVID. Off antibiotic. 5. HIV. 6. History of diverticulitis. SOURAV RN Subjective Subjective Off isolation as both Covids are negative. No CP. Had Stress test yesterday.Results still pending. In SR Objective Last 24 Hour Vital Signs Date Time Temp Pulse Resp B/P (MAP) Pulse Ox O2 Delivery O2 Flow Rate FiO2 03/01/20 09:00 Nasal Cannula 2.0 03/01/20 08:38 80 138/87 03/01/20 08:00 98.1 80 20 137/74 (95) 94 03/01/20 07:29 86 03/01/20 04:00 80 03/01/20 04:00 97.8 80 18 138/87 (104) 97 03/01/20 00:00 88 03/01/20 00:00 98.2 94 19 133/86 (102) 97 02/29/20 21:17 86 149/95 02/29/20 21:00 Nasal Cannula 2.0 02/29/20 20:00 99.5 86 19 149/95 (113) 98 02/29/20 20:00 87 02/29/20 16:00 97.1 88 18 133/85 (101) 97 02/29/20 15:09 87 02/29/20 11:59 98.1 78 18 139/86 (103) 96 02/29/20 11:50 78 Intake and Output 02/29/20 03/01/20 19:00 07:00 Intake Total 500 ml 350 ml Output Total 300 ml Balance 200 ml 350 ml Intake Oral 500 ml 350 ml Output Urine Total 300 ml # Voids 2 2 # Bowel Movements 2 Laboratory Tests Test 02/29/20 21:37 03/01/20 06:35 Urine Random Sodium 25 mmol/L (20-110) Urine Potassium Timed 70 mmol/L (12-62) H White Blood Count 7.3 K/UL (4.8-10.8) Red Blood Count 4.46 M/UL (4.70-6.10) L Hemoglobin 11.9 G/DL (14.2-18.0) L Hematocrit 34.9 % (42.0-52.0) L Mean Corpuscular Volume 78 FL (80-99) L Mean Corpuscular Hemoglobin 26.6 PG (27.0-31.0) L Mean Corpuscular Hemoglobin Concent 34.0 G/DL (32.0-36.0) Red Cell Distribution Width 12.4 % (11.6-14.8) Platelet Count 153 K/UL (150-450) Mean Platelet Volume 5.9 FL (6.5-10.1) L Neutrophils (%) (Auto) 67.4 % (45.0-75.0) Lymphocytes (%) (Auto) 20.3 % (20.0-45.0) Monocytes (%) (Auto) 6.6 % (1.0-10.0) Eosinophils (%) (Auto) 5.1 % (0.0-3.0) H Basophils (%) (Auto) 0.7 % (0.0-2.0) Sodium Level 145 MMOL/L (136-145) Potassium Level 3.3 MMOL/L (3.5-5.1) L Chloride Level 106 MMOL/L (98-107) Carbon Dioxide Level 31 MMOL/L (21-32) Anion Gap 8 mmol/L (5-15) Blood Urea Nitrogen 21 mg/dL (7-18) H Creatinine 2.0 MG/DL (0.55-1.30) H Estimat Glomerular Filtration Rate 41.3 mL/min (>60) Glucose Level 139 MG/DL (74-106) H Calcium Level 8.3 MG/DL (8.5-10.1) L Objective HEAD AND NECK: No JVD. LUNGS: Clear. CARDIOVASCULAR: Regular S1 and S2 with no murmur. ABDOMEN: Soft EXTREMITIES: No pitting edema. Thony Augustine MD March 01, 2020 11:46
[2020-03-01 12:00] VITALS: BP 135/65
--- NOTE | 2020-03-01 13:15 | General Progress Note ---
Assessment/Plan Problem List: (1) SOB (shortness of breath) ICD Codes: R06.02 - Shortness of breath SNOMED: 770515947 (2) Suspected COVID-19 virus infection ICD Codes: Z20.828 - Contact with and (suspected) exposure to other viral communicable diseases SNOMED: 233199200 (3) Hypokalemia ICD Codes: E87.6 - Hypokalemia SNOMED: 57032124 (4) Chest pain ICD Codes: R07.9 - Chest pain, unspecified SNOMED: 55764746 Qualifiers: Qualified Codes: R07.9 - Chest pain, unspecified (5) LEE (acute kidney injury) ICD Codes: N17.9 - Acute kidney failure, unspecified SNOMED: 16039846, 2394724 (6) HTN (hypertension) ICD Codes: I10 - Essential (primary) hypertension SNOMED: 63872010 (7) Constipation ICD Codes: K59.00 - Constipation, unspecified SNOMED: 62338379 Status: stable, progressing Assessment/Plan: o2 pulm tx abx pt diet cardio f/u dc w hh if clear Subjective Constitutional: Reports: weakness Allergies: Coded Allergies: No Known Allergies (Unverified , 10/10/16) All Systems: reviewed and negative except above Subjective calm sleepy Objective Last 24 Hour Vital Signs Date Time Temp Pulse Resp B/P (MAP) Pulse Ox O2 Delivery O2 Flow Rate FiO2 03/01/20 12:00 98.0 72 20 135/65 (88) 96 03/01/20 11:37 77 03/01/20 09:00 Nasal Cannula 2.0 03/01/20 08:38 80 138/87 03/01/20 08:00 98.1 80 20 137/74 (95) 94 03/01/20 07:29 86 03/01/20 04:00 80 03/01/20 04:00 97.8 80 18 138/87 (104) 97 03/01/20 00:00 88 03/01/20 00:00 98.2 94 19 133/86 (102) 97 02/29/20 21:17 86 149/95 02/29/20 21:00 Nasal Cannula 2.0 02/29/20 20:00 99.5 86 19 149/95 (113) 98 02/29/20 20:00 87 02/29/20 16:00 97.1 88 18 133/85 (101) 97 02/29/20 15:09 87 Intake and Output 02/29/20 03/01/20 19:00 07:00 Intake Total 500 ml 350 ml Output Total 300 ml Balance 200 ml 350 ml Intake Oral 500 ml 350 ml Output Urine Total 300 ml # Voids 2 2 # Bowel Movements 2 Laboratory Tests 02/29/20 21:37: Urine Random Sodium 25, Urine Potassium Timed 70H 03/01/20 06:35: White Blood Count 7.3, Red Blood Count 4.46L, Hemoglobin 11.9L, Hematocrit 34.9L , Mean Corpuscular Volume 78L, Mean Corpuscular Hemoglobin 26.6L, Mean Corpuscular Hemoglobin Concent 34.0, Red Cell Distribution Width 12.4, Platelet Count 153, Mean Platelet Volume 5.9L, Neutrophils (%) (Auto) 67.4, Lymphocytes ( %) (Auto) 20.3, Monocytes (%) (Auto) 6.6, Eosinophils (%) (Auto) 5.1H, Basophils (%) (Auto) 0.7, Sodium Level 145, Potassium Level 3.3L, Chloride Level 106, Carbon Dioxide Level 31, Anion Gap 8, Blood Urea Nitrogen 21H, Creatinine 2.0H, Estimat Glomerular Filtration Rate 41.3, Glucose Level 139H, Calcium Level 8.3L Height (Feet): 5 Height (Inches): 11.00 Weight (Pounds): 244 General Appearance: lethargic EENT: normal ENT inspection Neck: normal alignment Cardiovascular: normal peripheral pulses, normal rate, regular rhythm Respiratory/Chest: chest wall non-tender, lungs clear, normal breath sounds Abdomen: normal bowel sounds, non tender, soft Extremities: normal inspection Edema: no edema noted Arm (L), no edema noted Arm (R), no edema noted Leg (L), no edema noted Leg (R), no edema noted Pedal (L), no edema noted Pedal (R), no edema noted Generalized Neurologic: motor weakness Skin: normal pigmentation, warm/dry HoltZeyad Pollock DO March 01, 2020 13:15
--- NOTE | 2020-03-01 13:40 | Infectious Diseases Prog Note ---
Assessment/Plan Assessment/Plan Assessment: UTI (+Urinary frequency, no dysuria) -u/a no pyuria, nit neg, leuk +1; ucx >100 E. fecalis (S amp, vanco) Afebrile MIld leukocytosis/lymphopenia- SP Chest pain/Dyspnea- on 2l nC- ?etiology- no PE, COVID neg x2 -02/[address]:MINIMAL DEPENDENT ATELECTASIS. NO SIGN OF ACUTE CARDIOPULMONARY DISEASE. -02/24 CXR: NO ACUTE CARDIOPULMONARY DISEASE. -02/22 CXR: no acute disease SARS-COV2 PCR neg x2 (02/22, 02/24) trops neg x3 EKG no ischemic changes R ankle pain- no evidence of cellulitis, mild swelling- -R ankle xray: No displaced fracture or dislocation identified. -v. duplex: UNREMARKABLE VENOUS DUPLEX. Hypokalemia LEE vs CKD -Renal US: LEFT RENAL STONE. NO HYDRONEPHROSIS.BILATERAL CORTICAL THINNING WITH SMALL RENAL CYSTS. HIV- dx'ed 25 yrs ago- on treatment, currently on Juluca (previously on Atripla ) -per pt HIV VL UD and CD4 800s (last lab Oct 2019) HTN diverticulitis asthma Obesity Plan: -PO Amoxocillin #2/5 -ok to discharge on above regimen -f/u cx -Monitor CBC/CMP, temperatures -Continue HAART: Dolutegravir 50mg/Rilpivirine 25mg once daily -Neprho, Pulm f/u Thank you for consulting [facility]. Will contiue to follow along with you. Discussed with RN. Subjective Allergies: Coded Allergies: No Known Allergies (Unverified , 10/10/16) Subjective afebrile currently at Objective Vital Signs Last 24 Hour Vital Signs Date Time Temp Pulse Resp B/P (MAP) Pulse Ox O2 Delivery O2 Flow Rate FiO2 03/01/20 12:00 98.0 72 20 135/65 (88) 96 03/01/20 11:37 77 03/01/20 09:00 Nasal Cannula 2.0 03/01/20 08:38 80 138/87 03/01/20 08:00 98.1 80 20 137/74 (95) 94 03/01/20 07:29 86 03/01/20 04:00 80 03/01/20 04:00 97.8 80 18 138/87 (104) 97 03/01/20 00:00 88 03/01/20 00:00 98.2 94 19 133/86 (102) 97 02/29/20 21:17 86 149/95 02/29/20 21:00 Nasal Cannula 2.0 02/29/20 20:00 99.5 86 19 149/95 (113) 98 02/29/20 20:00 87 02/29/20 16:00 97.1 88 18 133/85 (101) 97 02/29/20 15:09 87 Height (Feet): 5 Height (Inches): 11.00 Weight (Pounds): 244 Objective General Appearance: no apparent distress Cardiovascular: no murmurs Abdomen: S+D, NT, ND Ext: no rash, no edema Lungs: CTA x2 Laboratory Tests Test 02/29/20 21:37 03/01/20 06:35 Urine Random Sodium 25 mmol/L (20-110) Urine Potassium Timed 70 mmol/L (12-62) H White Blood Count 7.3 K/UL (4.8-10.8) Red Blood Count 4.46 M/UL (4.70-6.10) L Hemoglobin 11.9 G/DL (14.2-18.0) L Hematocrit 34.9 % (42.0-52.0) L Mean Corpuscular Volume 78 FL (80-99) L Mean Corpuscular Hemoglobin 26.6 PG (27.0-31.0) L Mean Corpuscular Hemoglobin Concent 34.0 G/DL (32.0-36.0) Red Cell Distribution Width 12.4 % (11.6-14.8) Platelet Count 153 K/UL (150-450) Mean Platelet Volume 5.9 FL (6.5-10.1) L Neutrophils (%) (Auto) 67.4 % (45.0-75.0) Lymphocytes (%) (Auto) 20.3 % (20.0-45.0) Monocytes (%) (Auto) 6.6 % (1.0-10.0) Eosinophils (%) (Auto) 5.1 % (0.0-3.0) H Basophils (%) (Auto) 0.7 % (0.0-2.0) Sodium Level 145 MMOL/L (136-145) Potassium Level 3.3 MMOL/L (3.5-5.1) L Chloride Level 106 MMOL/L (98-107) Carbon Dioxide Level 31 MMOL/L (21-32) Anion Gap 8 mmol/L (5-15) Blood Urea Nitrogen 21 mg/dL (7-18) H Creatinine 2.0 MG/DL (0.55-1.30) H Estimat Glomerular Filtration Rate 41.3 mL/min (>60) Glucose Level 139 MG/DL (74-106) H Calcium Level 8.3 MG/DL (8.5-10.1) L Current Medications Medications (Trade) Dose Ordered Sig/Mamie Route PRN Reason Start Time Stop Time Status Last Admin Dose Admin Acetaminophen/ Codeine Phosphate (Tylenol #3) 1 tab Q4H PRN ORAL For Pain Level <=5 02/26/20 11:30 03/04/20 11:29 02/29/20 22:05 Amoxicillin (Amoxil) 500 mg Q8HR ORAL 02/29/20 16:00 03/07/20 15:59 03/01/20 13:06 Bupropion HCl (Wellbutrin XL) 150 mg DAILY ORAL 02/24/20 09:00 03/25/20 08:59 03/01/20 08:38 Docusate Sodium (Colace) 100 mg TID ORAL 02/25/20 13:00 03/25/20 08:59 03/01/20 13:06 Dolutegravir Sodium (Tivicay) 50 mg DAILY ORAL 02/26/20 09:00 05/26/20 08:59 03/01/20 08:39 Folic Acid (Folate) 1 mg DAILY ORAL 02/25/20 11:30 03/26/20 11:29 03/01/20 08:38 Hydralazine HCl (Apresoline) 25 mg Q4H PRN ORAL Blood pressure over 160 systol 02/24/20 12:45 05/24/20 12:44 Magnesium Hydroxide (Mom) 30 ml DAILYPRN PRN ORAL Constipation 02/28/20 09:15 03/29/20 09:14 02/29/20 22:02 Magnesium Oxide (Mag-Ox 400mg) 400 mg THREE TIMES A DAY ORAL 02/29/20 13:00 03/30/20 12:59 03/01/20 13:06 Metoprolol Tartrate (Lopressor) 12.5 mg Q12HR ORAL 02/26/20 21:00 05/26/20 20:59 03/01/20 08:38 Patient Own Medication (Patient's Own Med) 1 ea DAILY ORAL 02/26/20 09:00 03/27/20 08:59 03/01/20 08:39 Potassium Chloride (K-Dur) 40 meq TWICE A DAY ORAL 02/29/20 09:00 05/29/20 08:59 03/01/20 08:39 Regadenoson (Lexiscan) 0.4 mg ONCE PRN IV CARDIOLOGY 02/27/20 12:27 03/01/20 23:59 02/29/20 12:50 Spironolactone (Aldactone) 25 mg DAILY ORAL 03/01/20 09:15 03/31/20 09:14 03/01/20 09:43 Tamsulosin HCl (Flomax) 0.4 mg BID ORAL 02/26/20 10:30 03/27/20 10:29 03/01/20 08:38 Trazodone HCl (Desyrel) 50 mg BEDTIME ORAL 02/24/20 21:00 03/25/20 20:59 02/29/20 21:17 Mitzi Reeves M.D. March 01, 2020 13:40
--- NOTE | 2020-03-01 13:51 | Nephrology Progress Note ---
Assessment/Plan Problem List: (1) LEE (acute kidney injury) (2) Hypokalemia (3) HTN (hypertension) (4) HIV disease (5) DMII (diabetes mellitus, type 2) Assessment Renal failure appears to be chronic, may have superimposed acute component Serum creatinine down from 2.3 to 2 today Hypo-kalemia History of hypertension History of HIV disease History of diverticulitis Proteinuria with 1+ leukocyte Estrace Plan Add low-dose of Aldactone for hypokalemia Serum potassium lowered again, will start oral potassium chloride supplement Serum creatinine remains stable Patient denies any diarrhea and under control he complains of constipation Serum potassium improved Will continue oral magnesium Start Flomax Change diet to medium carbohydrates Switch to Lopressor from [employer] Previously: Stop Dyazide, stop Lotensin Potassium supplement p.o. and IV Adjust blood pressure medication Avoid nephrotoxic's Urine studies, urine culture Kidney ultrasound pending results Monitor renal parameters Per orders IMPRESSION:Kidney ultrasound LEFT RENAL STONE. NO HYDRONEPHROSIS. BILATERAL CORTICAL THINNING WITH SMALL RENAL CYSTS. Subjective ROS Limited/Unobtainable: No Objective Objective Last 24 Hour Vital Signs Date Time Temp Pulse Resp B/P (MAP) Pulse Ox O2 Delivery O2 Flow Rate FiO2 03/01/20 12:00 98.0 72 20 135/65 (88) 96 03/01/20 11:37 77 03/01/20 09:00 Nasal Cannula 2.0 03/01/20 08:38 80 138/87 03/01/20 08:00 98.1 80 20 137/74 (95) 94 03/01/20 07:29 86 03/01/20 04:00 80 03/01/20 04:00 97.8 80 18 138/87 (104) 97 03/01/20 00:00 88 03/01/20 00:00 98.2 94 19 133/86 (102) 97 02/29/20 21:17 86 149/95 02/29/20 21:00 Nasal Cannula 2.0 02/29/20 20:00 99.5 86 19 149/95 (113) 98 02/29/20 20:00 87 02/29/20 16:00 97.1 88 18 133/85 (101) 97 02/29/20 15:09 87 Intake and Output 02/29/20 03/01/20 19:00 07:00 Intake Total 500 ml 350 ml Output Total 300 ml Balance 200 ml 350 ml Intake Oral 500 ml 350 ml Output Urine Total 300 ml # Voids 2 2 # Bowel Movements 2 Laboratory Tests 02/29/20 21:37: Urine Random Sodium 25, Urine Potassium Timed 70H 03/01/20 06:35: White Blood Count 7.3, Red Blood Count 4.46L, Hemoglobin 11.9L, Hematocrit 34.9L , Mean Corpuscular Volume 78L, Mean Corpuscular Hemoglobin 26.6L, Mean Corpuscular Hemoglobin Concent 34.0, Red Cell Distribution Width 12.4, Platelet Count 153, Mean Platelet Volume 5.9L, Neutrophils (%) (Auto) 67.4, Lymphocytes ( %) (Auto) 20.3, Monocytes (%) (Auto) 6.6, Eosinophils (%) (Auto) 5.1H, Basophils (%) (Auto) 0.7, Sodium Level 145, Potassium Level 3.3L, Chloride Level 106, Carbon Dioxide Level 31, Anion Gap 8, Blood Urea Nitrogen 21H, Creatinine 2.0H, Estimat Glomerular Filtration Rate 41.3, Glucose Level 139H, Calcium Level 8.3L Height (Feet): 5 Height (Inches): 11.00 Weight (Pounds): 244 General Appearance: no apparent distress Cardiovascular: normal rate Abdomen: soft, other - Obese Objective No change Tawanda Holbrook MD March 01, 2020 13:51
--- NOTE | 2020-03-01 14:32 | Diagnostic Imaging Report ---
INDICATION: Chest pain. Comparison: None available. TECHNIQUE: Using a one day protocol, the patient was injected IV with 10.6 mCi of Myoview. Thirty minutes later, resting gated SPECT images were acquired. Through a previously established IV site, using a bolus injection chemical stress infusion protocol, the patient was given 0.4 mg of Lexiscan followed by a bolus injection of 31.5 mCi of Tc Myoview. The patient was monitored until vital signs returned acceptable levels. Gated stress SPECT supine images were acquired at 30 minutes post Tc Myoview injection. The images were processed and displayed in the short axis, vertical and horizontal long axis, and compared with resting images. The gated stress supine images were additionally processed and evaluated for myocardial wall motion and global left ventricular ejection fraction. Only supine images are presented. There is no prone images could FINDINGS: Uptake in the myocardium is mostly homogeneous on stress views. There is suggestion of slight photopenia in the inferior wall on the resting images. The left ventricular ejection fraction is 66 %, which is within normal limits. End-diastolic and end-systolic volumes of 109 mL and 37 mL respectively were noted. IMPRESSION: SLIGHT PHOTOPENIA IN THE INFERIOR WALL BUT ONLY ON RESTING IMAGES AND THE AREA ACTUALLY APPEARS IMPROVED ON STRESS IMAGES. THIS MAY BE SECONDARY TO DIAPHRAGMATIC CREEP ARTIFACT. HIBERNATING MYOCARDIUM CONSIDERED LESS LIKELY. EJECTION FRACTION IS 66%. * Please note that this study is performed without the benefit of attenuation correction or prone imaging. Diaphragmatic creep attenuation artifacts can mimic an inferior wall abnormality.
--- NOTE | 2020-03-01 14:44 | NUR ---
*-*DISCHARGE PLANNING*-* PATIENT HAS BEEN REFERRED TO: [facility] P: [phone] F: [phone]
--- NOTE | 2020-03-01 15:06 | Pulmonology Progress Note ---
Subjective ROS Limited/Unobtainable: No Interval Events: None new Constitutional: Reports: no symptoms HEENT: Repors: no symptoms Respiratory: Reports: no symptoms Cardiovascular: Reports: no symptoms Gastrointestinal/Abdominal: Reports: no symptoms Allergies: Coded Allergies: No Known Allergies (Unverified , 10/10/16) All Systems: reviewed and negative except above Objective Last 24 Hour Vital Signs Date Time Temp Pulse Resp B/P (MAP) Pulse Ox O2 Delivery O2 Flow Rate FiO2 03/01/20 12:00 98.0 72 20 135/65 (88) 96 03/01/20 11:37 77 03/01/20 09:00 Nasal Cannula 2.0 03/01/20 08:38 80 138/87 03/01/20 08:00 98.1 80 20 137/74 (95) 94 03/01/20 07:29 86 03/01/20 04:00 80 03/01/20 04:00 97.8 80 18 138/87 (104) 97 03/01/20 00:00 88 03/01/20 00:00 98.2 94 19 133/86 (102) 97 02/29/20 21:17 86 149/95 02/29/20 21:00 Nasal Cannula 2.0 02/29/20 20:00 99.5 86 19 149/95 (113) 98 02/29/20 20:00 87 02/29/20 16:00 97.1 88 18 133/85 (101) 97 02/29/20 15:09 87 Intake and Output 02/29/20 03/01/20 19:00 07:00 Intake Total 500 ml 350 ml Output Total 300 ml Balance 200 ml 350 ml Intake Oral 500 ml 350 ml Output Urine Total 300 ml # Voids 2 2 # Bowel Movements 2 General Appearance: no acute distress HEENT: normocephalic Respiratory: chest wall non-tender Cardiovascular: normal peripheral pulses Abdomen: normal bowel sounds Extremities: no cyanosis Laboratory Tests 02/29/20 21:37: Urine Random Sodium 25, Urine Potassium Timed 70H 03/01/20 06:35: White Blood Count 7.3, Red Blood Count 4.46L, Hemoglobin 11.9L, Hematocrit 34.9L , Mean Corpuscular Volume 78L, Mean Corpuscular Hemoglobin 26.6L, Mean Corpuscular Hemoglobin Concent 34.0, Red Cell Distribution Width 12.4, Platelet Count 153, Mean Platelet Volume 5.9L, Neutrophils (%) (Auto) 67.4, Lymphocytes ( %) (Auto) 20.3, Monocytes (%) (Auto) 6.6, Eosinophils (%) (Auto) 5.1H, Basophils (%) (Auto) 0.7, Sodium Level 145, Potassium Level 3.3L, Chloride Level 106, Carbon Dioxide Level 31, Anion Gap 8, Blood Urea Nitrogen 21H, Creatinine 2.0H, Estimat Glomerular Filtration Rate 41.3, Glucose Level 139H, Calcium Level 8.3L Current Medications Medications (Trade) Dose Ordered Sig/Mamie Route PRN Reason Start Time Stop Time Status Last Admin Dose Admin Acetaminophen/ Codeine Phosphate (Tylenol #3) 1 tab Q4H PRN ORAL For Pain Level <=5 02/26/20 11:30 03/04/20 11:29 02/29/20 22:05 Amoxicillin (Amoxil) 500 mg Q8HR ORAL 02/29/20 16:00 03/07/20 15:59 03/01/20 13:06 Bupropion HCl (Wellbutrin XL) 150 mg DAILY ORAL 02/24/20 09:00 03/25/20 08:59 03/01/20 08:38 Docusate Sodium (Colace) 100 mg TID ORAL 02/25/20 13:00 03/25/20 08:59 03/01/20 13:06 Dolutegravir Sodium (Tivicay) 50 mg DAILY ORAL 02/26/20 09:00 05/26/20 08:59 03/01/20 08:39 Folic Acid (Folate) 1 mg DAILY ORAL 02/25/20 11:30 03/26/20 11:29 03/01/20 08:38 Hydralazine HCl (Apresoline) 25 mg Q4H PRN ORAL Blood pressure over 160 systol 02/24/20 12:45 05/24/20 12:44 Magnesium Hydroxide (Mom) 30 ml DAILYPRN PRN ORAL Constipation 02/28/20 09:15 03/29/20 09:14 02/29/20 22:02 Magnesium Oxide (Mag-Ox 400mg) 400 mg THREE TIMES A DAY ORAL 02/29/20 13:00 03/30/20 12:59 03/01/20 13:06 Metoprolol Tartrate (Lopressor) 12.5 mg Q12HR ORAL 02/26/20 21:00 05/26/20 20:59 03/01/20 08:38 Patient Own Medication (Patient's Own Med) 1 ea DAILY ORAL 02/26/20 09:00 03/27/20 08:59 03/01/20 08:39 Potassium Chloride (K-Dur) 40 meq TWICE A DAY ORAL 02/29/20 09:00 05/29/20 08:59 03/01/20 08:39 Regadenoson (Lexiscan) 0.4 mg ONCE PRN IV CARDIOLOGY 02/27/20 12:27 03/01/20 23:59 02/29/20 12:50 Spironolactone (Aldactone) 25 mg DAILY ORAL 03/01/20 09:15 03/31/20 09:14 03/01/20 09:43 Tamsulosin HCl (Flomax) 0.4 mg BID ORAL 02/26/20 10:30 03/27/20 10:29 03/01/20 08:38 Trazodone HCl (Desyrel) 50 mg BEDTIME ORAL 02/24/20 21:00 03/25/20 20:59 02/29/20 21:17 Assessment/Plan Assessment/Plan IMPRESSION: 1. Asthma, stable. 2. Status post fall. 3. HIV positivity. 4. Hypertension. DISCUSSION: Continue current medications, Asthma stable Will continue Tylenol #4; I will follow. Stress test today Dc planning Sakshi Beth Omar Syed MD March 01, 2020 15:06
[2020-03-01 16:00] VITALS: BP 143/81
--- NOTE | 2020-03-01 16:05 | NUR ---
*-*DISCHARGE PLANNED*-* PATIENT HAS BEEN ACCEPTED WITH: S/W LUDMILA FROM [facility], WHO STATED THEY WILL SERVICE PATIENT UPON DISCHARGE.
--- NOTE | 2020-03-01 16:35 | NUR ---
NURSE NOTES: RN sent stress test result to Dr Torres and he cleared pt to discharge, noted and carried out. will continue to monitor.
[2020-03-01] MEDS ORDERED: COLACE100 MG ORAL (16:47)
[2020-03-01] MEDS ORDERED: TIVICAY50 MG ORAL (16:49)
[2020-03-01] MEDS ORDERED: FOLIC ACID1 MG ORAL (16:50)
[2020-03-01] MEDS ORDERED: HYDRALAZINE HCL25 M1 ORAL (16:51)
[2020-03-01] MEDS ORDERED: MAG-OX 400400 MG ORAL (16:53)
[2020-03-01] MEDS ORDERED: METOPROLOL TART25 MG ORAL (16:54)
[2020-03-01] MEDS ORDERED: POTASSIUM40 MEQ/11 PO (16:55)
[2020-03-01] MEDS ORDERED: SPIRONOLACTONE100 MG ORAL (16:56)
[2020-03-01] MEDS ORDERED: FLOMAX0.4 MG ORAL (16:57)
[2020-03-01] MEDS ORDERED: AMOXICILLI200 MG/5 M PO (16:59)
--- NOTE | 2020-03-01 18:20 | NUR ---
NURSE NOTES: pt has discharge order, all D/C assessments and instructions done and pt verbally confirmed to understand all. pt is stable, V/S stable, no complain of pain at this moment, all belongings are with pt and he signed belonging list. pt ask to take prescription to his own pharmacy so the prescription is with pt, pt's meds got from pharmacy and given to pt. skin is intact. pt is aware about [facility] with ph:[phone]. pt is getting ready to discharge.
--- NOTE | 2020-03-01 19:06 | NUR ---
NURSE NOTES: pt is stable, V/S stable, IV access D/C, pt left hospital, RN accompanied pt to out of hospital, pt refused wheelchair.
--- NOTE | 2020-03-03 11:52 | Discharge Summary ---
Discharge Summary Discharge Summary _ DATE OF ADMISSION: 02/23/2020 DATE OF DISCHARGE: 03/01/2020 DISCHARGED BY: Dr. Holt REASON FOR ADMISSION: 59 years old male with past medical history of hypertension, asthma, HIV, presented to emergency department with cough and shortness of breath for 4 days, dyspnea on exertion and some chest tightness. Upon evaluation Pulsoxymeter was 95% on room air. Patient was afebrile. Laboratory work-up revealed mild leukocytosis WBC 11.3, stable hemoglobin , hematocrit and platelet count. Potassium 2.6. BUN 20, creatinine 2.3. Glucose 122. Troponin 0.03, pro BNP 475. EKG revealed sinus rhythm with right bundle branch block. Albumin 3.6. Chest x-ray revealed no acute cardiopulmonary pathology. Patient subsequently admitted for chest pain, hypokalemia , acute kidney injury. Patient also complained of the right ankle pain after recent fall. X-ray of the right ankle revealed no displaced fracture or dislocation. CONSULTANTS: golf course patroller Dr. Torres pulmonary Dr. Victoria ID specialist Dr. Reeves weave room supervisor Dr. Holbrook HOSPITAL COURSE: Patient admitted to telemetry floor. Serial troponin were negative. EKG revealed no acute ischemic changes. Patient was ruled out for myocardia infarction. Echocardiogram revealed preserved ejection fraction. Myocardial perfusion scan test revealed calculated ejection fraction 66%. Blood pressure was managed with beta rafita. Hydralazine was on board as needed for blood pressure spikes. Supplemental oxygen provided and titrated to keep pulse oximetry above 92%. Pulmonary toilet was on board as needed. Per hat brim curler , patient's asthma was stable, no evidence of exacerbation Patient initially admitted to isolation room. SARS CoV 2 by PCR on 02/22 and 02/24 was not detected. Isolation was discontinued. Urine culture revealed Enterococcus faecalis. Patient was treated with amoxicillin. Patient was discharged to complete amoxicillin as outpatient. As mentioned above , patient complained of the right ankle pain secondary to fall. Patient had no evidence of cellulitis and only mild swelling. X ray right ankle was unremarkable. Venous duplex bilateral lower extremity was negative. Pain management was addressed as needed. Renal parameters and electrolytes were closely monitored. Electrolytes corrected as needed. Renal ultrasound revealed left renal stone. No hydronephrosis. Mild cortical thinning bilaterally. Prior to discharge creatinine from 2.3 down to 2.0. Per weave room supervisor patient had acute kidney injury on chronic kidney superimposed on chronic kidney disease. Hypokalemia treated. Patient also started on oral magnesium. Patient was diagnosed 25 years ago with HIV. Juluca continued. Per patient his viral load was undetectable and CD4 in 800s. Fall precautions maintained. Supportive care provided. Patient clinically stabilized and was ready for discharge FINAL DIAGNOSES: Chest pain UTI with enterococci Hypokalemia Acute kidney injury superimposed on chronic kidney disease Hypertension Suspected COVID-19 ruled out Asthma HIV Right ankle pain status post fall Diabetes mellitus DISCHARGE MEDICATIONS: See Medication Reconciliation list. DISCHARGE INSTRUCTIONS: Patient was discharged home with home health services. Follow up with primary care provider in one week. I have been assigned to dictate discharge summary for this account. I was not involved in the patient's management. Jovanna Gomez NP March 03, 2020 11:52
== END 2020-03-01 19:09 | disposition home health service, planned readmission (86) | DRG 683 ==
LOC: EMR 17:35 → EDBEDREQ 17:54 → 2E 18:09 → EDBEDREQ 18:48 → 2E 02-24 22:13
DX: N17.9 Acute kidney failure, unspecified (principal); N39.0 Urinary tract infection, site not specified; R07.9 Chest pain, unspecified; E87.6 Hypokalemia; E66.9 Obesity, unspecified; Z68.34 Body mass index [BMI] 34.0-34.9, adult; I12.9 Hypertensive chronic kidney disease with stage 1 through stage 4 chronic kidney disease, or unspecified chronic kidney disease; N18.9 Chronic kidney disease, unspecified; K57.90 Diverticulosis of intestine, part unspecified, without perforation or abscess without bleeding; J45.909 Unspecified asthma, uncomplicated; K59.00 Constipation, unspecified; M25.571 Pain in right ankle and joints of right foot; Z91.81 History of falling; I45.10 Unspecified right bundle-branch block; E11.9 Type 2 diabetes mellitus without complications
CPT/HCPCS: 36415; 71045; 71250; 76770; 78452; 80048; 80053; 80061; 80076; 81001; 82550; 82607; 82728; 82746; 82977; 83036; 83540; 83550; 83615; 83735; 83880; 84100; 84133; 84300; 84443; 84484; 84550; 85025; 85379; 86140; 87086; 87181; 87635; 89050; 93005; 93017; 93306; 93970; 96360; 97803; 99285; J2785; J7030; J8499